=== PATIENT | female | born 1975 | race Caucasian/White ===

== ENCOUNTER 2016-12-06 18:30 | Inpatient (IN) | payer OTHER ==
[~2016-12-06] VITALS: Ht 162.6 cm; Wt 81.1 kg
[2016-12-06 21:26] VITALS: Ht 162.6 cm; Wt 81.1 kg
[2016-12-06 22:30] VITALS: BP 105/61; RESP 20
[2016-12-06] MEDS ORDERED: FUROSEMIDE 40 MG INJ IV ONE (23:00)
[2016-12-06] MEDS ORDERED: ALBUTEROL/IPRATROPIUM (NEB) 3 ML AMP HHN PRN (23:00)
[2016-12-06] MEDS ORDERED: ONDANSETRON 4 MG INJ IV PRN (23:00)
[2016-12-06] MEDS ORDERED: ACETAMINOPHEN 325 MG TAB PO PRN (23:00)
--- NOTE | 2016-12-06 23:27 | HP ---
Date/Time of Note Date/Time of Note DATE: 12/06/16 TIME: 23:14 Assessment/Plan VTE Prophylaxis VTE Prophylaxis Intervention: SCD's Lines/Catheters IV Catheter Type (from Rust): Saline Lock Assessment/Plan Chief Complaint/Hosp Course This is a 41 year old female being admitted to the [facility] floor for: #1 Large left pleural effusion: cxr: large left pleural effusion filing two thirst of the left thorax. DDx: Heart failure vs. underlying CA vs. other etiology. CT of the chest. U/s guided thoracentesis via IR with fluid analysis. Echo in the AM. Duonebs q4hrs. Will try lasix 40mg IV x 1 to see if it helps with diuresis. Supplemental 02. #2 Asthma: i do not believe she is in an exacerbation at this time. Will give duonebs q 4hrs to help with #1. 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 Unsure if there is reoccurence or spread that could be contributing to the #1. CT of the chest in the a.m. to further evaluate. will check CEA tumor marker. #4 Dvt and gi prophylaxis: SCDs, pepcid, will avoid lovenox at this time secondary to thoracentesis in the AM. Further treatment strategy will be implemented as per the clinical course. Problems: HPI/ROS Admit Date/Time Admit Date/Time Dec 06, 2016 at 20:27 Hx of Present Illness CC: sob x 1 month getting worse This is a 41 year old female with past medical history of asthma and Skin sarcoma who was transferred from [facility] for SOB x 1 month. She also reported left shoulder and pleuritic pain for 1 year duration. Upon my examination, she states that she has had had progressive worsening of her shortness of breath. She denies any fevers or chest pain, but does report pleuritic pain on respiration. She had an oxygen saturation of 96% on RA upon arrival to her room at [facility]. Denies any weight loss. allergies: nkda meds: see charli WARE Const: As per HPI Eyes : No pain discharge or redness or change in visual acuity ENT: No pain, sore throat, congestion, congestion, dysphagia or discharge Respiratory: As per HPI Cardiovascular: No chest pain, palpitation, PND, or edema GI : no change in appetite, abdominal pain, nausea, vomiting, diarrhea, constipation, or change in the color his stool Genitourinary: No dysuria, hematuria, flank pain , discharge or CVA tenderness Musculoskeletal: No joint pain, back pain, neck pain, restricted range of motion in neck or joints Skin: No rash, bruising or hives Neuro: No headache, dizziness, syncope, seizure, focal weakness Endocrine: No polyuria, polydipsia, temperature intolerance Psych: No hallucination, depression, anxiety or suicidal ideation PMH/Family/Social Past Medical History left forearm sarcoma, asthma, Past Surgical History left forearm sarcoma removal, cholecystectomy Family History Significant Family History: cancer (dad: unkown which kind) Social History Alcohol Use: occasionally Smoking Status: Current some day smoker (1 cigarette every other day. ) Drug Use: none Exam/Review of Systems Vital Signs Vitals Temperature: 98.6 bp:105/61 Heart rate 89 Respirations 18 O2 saturation: 98% on 2 L Exam Exam General: This is a 40 year female sitting in bed in no acute respiratory distress HEENT: Atraumatic, normocephalic. The pupils are equal, round and reactive. Extraocular motor are intact Neck: Supple with full range of motion. No rigidity or meningismus Chest: Nontender Lungs: Decreased breath sounds especially at the left lung field, cough on deep inspiration Heart: Normal S1-S2, Regular rhythm and rate. No overt murmurs appreciated Abdomen: Soft , nontender, nondistended , bowel sounds are present. No guarding no rebound tenderness , No masses or organomegaly. No costovertebral temporal angle mass Extremities: Normal to inspection, no edema no cyanosis Neurologic: Normal mental status, speech normal, cranial nerves II through XII are intact, motor and sensory are intact, no focal weakness Additional Comments Transferring facility pertinent lab results below, please see transfer documentation for full information. Chest x-ray:cxr: large left pleural effusion filing two thirst of the left thorax. CBC: Appears within normal values, BMP appears within normal values, Medications Medications Current Medications Influenza Virus Vaccine (Fluzone) 0.5 ml ONCE ONCE IM* ; Start 12/07/16 at 12:00 ; Stop 12/07/16 at 12:01 JERMAINE MEJIA Dec 06, 2016 23:27
[2016-12-07] MEDS: KETOROLAC 15 MG INJ IV PRN ×3 (00:56→16:43)
[2016-12-07 01:21] LABS: INR 1.17; PT RATIO 1.2
[2016-12-07 01:22] LABS: PARTIAL THROMBOPLASTIN TIME 37.2 Sec (25.0-35.0)
[2016-12-07 01:34] LABS: CHOL/HDL RATIO 9.5 RATIO
[2016-12-07 01:37] LABS: ALBUMIN/GLOBULIN RATIO 0.85; BILIRUBIN,INDIRECT 0.4 mg/dl (0-1.1); BILIRUBIN,TOTAL 0.4 mg/dl (0.2-1.3); CALCIUM 9.7 mg/dl (8.4-10.2); CREATININE 0.67 mg/dl (0.44-1.00); POTASSIUM 3.7 mmol/L (3.5-5.1); TOTAL PROTEIN 8.7 g/dl (6.1-8.1)
[2016-12-07] MEDS: ALBUTEROL/IPRATROPIUM (NEB) 3 ML AMP HHN SCH ×6 (01:55→20:43)
[2016-12-07 02:00] VITALS: BP 83/52
[2016-12-07 05:29] VITALS: BP 94/54
[2016-12-07 06:32] LABS: BASOPHIL # 0.1 10^3/ul (0.0-0.1); BASOPHILS % 0.8 % (0.0-2.0); EOSINOPHILS # 1.1 10^3/ul (0.0-0.5); EOSINOPHILS % 8.6 % (0.0-7.0); HEMATOCRIT 37.2 % (37.0-47.0); HEMOGLOBIN 12.1 g/dl (12.0-16.0); LYMPHOCYTES # 3.4 10^3/ul (0.8-2.9); LYMPHOCYTES % 26.1 % (15.0-51.0); MEAN CORPUSCULAR HEMOGLOBIN 27.6 pg (29.0-33.0); MEAN CORPUSCULAR HGB CONC 32.5 g/dl (32.0-37.0); MEAN CORPUSCULAR VOLUME 84.7 fl (82.0-101.0); MONOCYTE # 0.9 10^3/ul (0.3-0.9); MONOCYTES % 7.2 % (0.0-11.0); NEUTROPHIL # 7.4 10^3/ul (1.6-7.5); NEUTROPHILS % 56.9 % (39.0-77.0); PLATELET COUNT 433 10^3/UL (140-415); RED BLOOD COUNT 4.39 10^6/ul (4.20-5.40); WHITE BLOOD COUNT 12.9 10^3/ul (4.8-10.8)
[2016-12-07 06:55] LABS: CALCIUM 9.2 mg/dl (8.4-10.2); CREATININE 0.73 mg/dl (0.44-1.00); POTASSIUM 3.6 mmol/L (3.5-5.1)
[2016-12-07 08:00] VITALS: BP 96/54; RESP 17
[2016-12-07] MEDS ORDERED: ENOXAPARIN 40 MG/0.4 ML SYG SC SCH (09:00)
[2016-12-07] MEDS ORDERED: FAMOTIDINE 20 MG TAB PO SCH (09:00)
--- NOTE | 2016-12-07 10:38 | RADRPT ---
PROCEDURE: CT chest without contrast. CLINICAL INDICATION: Pleural effusion TECHNIQUE: CT scan of the chest without contrast was performed on a multi-slice CT scanner. The p atient was scanned without administration of intravenous contrast. Coronal and sagittal reformatted images were obtained from the axial source images. One or more of the following dose reduction techniques were used: - Automated exposure control. - Adjustment of the mA and/or kV according to patient size. Use of iterative reconstruction technique. DLP vol 354.6 mGy CTDI 9.4 mGy-cm COMPARISON: None. FINDINGS: There is opacification of nearly the entirety of the left hemithorax and this results in slight shif t of the mediastinum towards the right side. There is irregular heterogeneous soft tissue density se en encompassing the majority of the right hemithorax with a mild to moderate amount of loculated lay ering pleural fluid seen at the apex and at the right lung base with possible densities within the f luid. The left lung has an expanded and heterogeneous density and the presence of soft tissue masses within the left lung parenchyma suspected. This results in mass effect upon the mediastinum.The rig ht lung is clear and there is no right-sided effusion. There is a soft tissue density seen within the right lower thorax measuring 3.3 x 2.1 cm not fully c haracterize on series 3, image 8 which could represent soft tissue density adjacent to the esophagus . The heart and vascular structures of the thorax appear grossly unremarkable however fine detail is l imited. There are no enlarged axillary or mediastinal lymph nodes. There is no acute upper abdominal abnormality. Mild degenerate changes are seen within the thoracic spine and shoulders with no acute osseous abnormality. IMPRESSION: There is near-complete opacification of the thorax with a small amount of aerated left upper lung th at remains. The left hemithorax is mostly opacified by expanded heterogeneous left lung parenchyma w ith possible masses within the left lung and this is not fully assessed out IV contrast. There is mild to moderate layering in loculated left pleural fluid seen however there are irregular density seen within the area the pleural space which could represent soft tissue components or debri s. There is a possible mass within the right lower thorax adjacent to the esophagus and the posterior m ediastinum and this could represent esophageal lesion or the presence of an enlarged lymph node. A C T thorax with contrast is recommended to further evaluate. There is slight shift of the mediastinum towards the right secondary to opacification of the left he mithorax and mass effect upon the mediastinal structures. RPTAT: AA .Gauri Romero MD, MD Date Time Electronically viewed and signed by .Gauri Romero MD, MD on 12/07/2016 10:38 .J/
[2016-12-07] MEDS ORDERED: INFLUENZA VIRUS VACCINE 0.5 ML SYG IM* ONE (12:00)
[2016-12-07 14:00] VITALS: BP 106/59; RESP 19
[2016-12-07] MEDS ORDERED: LORAZEPAM 1 MG TAB PO ONE (14:30)
--- NOTE | 2016-12-07 15:33 | PN ---
Date/Time of Note Date/Time of Note DATE: 12/07/16 TIME: 15:27 Assessment/Plan VTE Prophylaxis VTE Prophylaxis Intervention: SCD's Lines/Catheters IV Catheter Type (from Nrs): Saline Lock Assessment/Plan Assessment/Plan 41 yo F with pmhx asthma, h/o L wrist sarcoma sp surgical resection admitted for SOB found to have L sided pleural effusion, etio unclear-->infectious v other PLAN thora today. will check protein and LDH to determine if transudative v exudative , also check cell count/diff, gram stain, culture, AFB culture, cytology serum tumor markers negative, TSH negative, hcg negative TTE ordered by injury/safety hazard assessment, result pending Subjective 24 Hr Interval Summary Free Text/Dictation Irish language line used to gather additional hx from pt. She's been having progressive SOB x 2 mos. No weight loss. +fevers/chills x 1 week. Regarding her sarcoma, it was a lesion in her L forearm which was surgically resected Exam/Review of Systems Vital Signs Vitals Vital Signs Date Time Temp Pulse Resp B/P Pulse Ox O2 Delivery O2 Flow Rate FiO2 12/07/16 13:00 92 20 95 Nasal Cannula 2.0 12/07/16 08:00 98.5 96/54 Intake and Output 12/06/16 12/06/16 12/07/16 15:00 23:00 07:00 Intake Total 300 ml Output Total 200 ml Balance 100 ml Exam nad no mrg dec breath sounds L lung abd soft no edema Results Result Diagram: 12/07/16 0541 12/07/16 0541 Results 24 hrs Laboratory Tests Test 12/07/16 00:41 12/07/16 00:46 12/07/16 05:41 12/07/16 12:06 Sodium Level 141 141 Potassium Level 3.7 3.6 Chloride Level 104 106 Carbon Dioxide Level 24 23 Anion Gap 17 H 16 Blood Urea Nitrogen 8 12 Creatinine 0.67 0.73 Glucose Level 112 153 Calcium Level 9.7 9.2 Total Bilirubin 0.4 Direct Bilirubin 0.00 Indirect Bilirubin 0.4 Aspartate Amino Transf (AST/SGOT) 20 Alanine Aminotransferase (ALT/SGPT) 14 Alkaline Phosphatase 110 Total Protein 8.7 H 8.8 H Albumin 4.0 Globulin 4.70 H Albumin/Globulin Ratio 0.85 Prothrombin Time 15.0 H Prothrombin Time Ratio 1.2 INR International Normalized Ratio 1.17 Activated Partial Thromboplast Time 37.2 H Hemoglobin A1c 5.6 Triglycerides Level 111 Cholesterol Level 296 H LDL Cholesterol, Calculated 243 HDL Cholesterol 31 L Cholesterol/HDL Ratio 9.5 Thyroid Stimulating Hormone (TSH) 2.070 White Blood Count 12.9 H Red Blood Count 4.39 Hemoglobin 12.1 Hematocrit 37.2 Mean Corpuscular Volume 84.7 Mean Corpuscular Hemoglobin 27.6 L Mean Corpuscular Hemoglobin Concent 32.5 Red Cell Distribution Width 14.0 Platelet Count 433 H Mean Platelet Volume 10.0 Neutrophils % 56.9 Lymphocytes % 26.1 Monocytes % 7.2 Eosinophils % 8.6 H Basophils % 0.8 Nucleated Red Blood Cells % 0.0 Neutrophils # 7.4 Lymphocytes # 3.4 H Monocytes # 0.9 Eosinophils # 1.1 H Basophils # 0.1 Nucleated Red Blood Cells # 0.0 B-Type Natriuretic Peptide 47 Carcinoembryonic Antigen 1.4 Serum HCG, Qualitative NEGATIVE Medications Medications Current Medications Ondansetron HCl (Zofran Inj) 4 mg Q6H PRN IV NAUSEA AND/OR VOMITING; Start 12/06/16 at 23:00 Acetaminophen (Tylenol Tab) 650 mg Q6H PRN PO PAIN LEVEL 1-3 OR FEVER; Start 12/06/16 at 23:00 Ketorolac Tromethamine (Toradol) 15 mg Q6H PRN IV PAIN Last administered on t 08:47; Admin Dose 15 MG; Start 12/07/16 at 00:00; Stop 12/07/16 at 23:59 MEHNAZ PEOPLES MD Dec 07, 2016 15:33
--- NOTE | 2016-12-07 16:04 | CONS ---
Date/Time of Note Date/Time of Note DATE: 12/07/16 TIME: 15:58 Assessment/Plan Assessment/Plan Additional Assessment/Plan IMP: 1. Large heterogenous lung mass with associated pleural effusion: main consideration would be recurrence of sarcoma to the thorax vs. less likely primary bronchogenic cancer 2. Left should pain--likely referred pain from left lung mass/effusion RECS: 1. Agree with diagnostic/therapeutic thoracentesis 2. Would pursue CT-guided lung mass biopsy 3. CT chest/abdomen/pelvis with IV contrast for full staging Consultation Date/Type/Reason Admit Date/Time Dec 06, 2016 at 20:27 Type of Consultation: Pulm Hx of Present Illness Briefly, this is a 41 year old [place] female with past medical history of asthma and sarcoma of the right forearm s/p resection who was transferred from [facility] for SOB x 1 month. She also reported left shoulder and pleuritic pain for 1 year duration. Constitutional: no complaints Eyes: no complaints ENT: no complaints Respiratory: pleuritic pain, shortness of breath Cardiovascular: no complaints Gastrointestinal: no complaints Genitourinary: no complaints Skin: no complaints Neurologic: no complaints Endocrine: no complaints Lymphatic: no complaints Psychological: no complaints Past Medical History asthma right arm sarcoma Past Surgical History resection of right arm sarcoma Family History Significant Family History: no pertinent family hx Social History Alcohol Use: occasionally Smoking Status: Current some day smoker (1 cigarette every other day. ) Drug Use: none Exam/Review of Systems Vital Signs Vitals Vital Signs Date Time Temp Pulse Resp B/P Pulse Ox O2 Delivery O2 Flow Rate FiO2 12/07/16 13:00 92 20 95 Nasal Cannula 2.0 12/07/16 08:00 98.5 96/54 Intake and Output 12/06/16 12/06/16 12/07/16 15:00 23:00 07:00 Intake Total 300 ml Output Total 200 ml Balance 100 ml Exam Constitutional: alert, oriented Psych: nl mood/affect, no complaints Head: atraumatic, normocephalic Eyes: EOMI, nl conjunctiva, nl lids, nl sclera ENMT: mucosa pink and moist, nl external ears & nose, nl lips & teeth, nl nasal mucosa & septum Neck: non-tender, supple Respiratory: other (Absent left breath sounds ) Cardiovascular: nl pulses, regular rate and rhythm Gastrointestinal: nl liver, spleen, non-tender, soft Extremities: normal pulses, other (right forearm scar) Neurological: TURN SEWER II-XII intact, nl mental status, nl speech, nl strength Results Result Diagram: 12/07/1654012/07/16540 Results 24 hrs Laboratory Tests Test 12/07/16 00:41 12/07/16 00:46 12/07/16 05:41 12/07/16 12:06 Sodium Level 141 141 Potassium Level 3.7 3.6 Chloride Level 104 106 Carbon Dioxide Level 24 23 Anion Gap 17 H 16 Blood Urea Nitrogen 8 12 Creatinine 0.67 0.73 Glucose Level 112 153 Calcium Level 9.7 9.2 Total Bilirubin 0.4 Direct Bilirubin 0.00 Indirect Bilirubin 0.4 Aspartate Amino Transf (AST/SGOT) 20 Alanine Aminotransferase (ALT/SGPT) 14 Alkaline Phosphatase 110 Total Protein 8.7 H 8.8 H Albumin 4.0 Globulin 4.70 H Albumin/Globulin Ratio 0.85 Prothrombin Time 15.0 H Prothrombin Time Ratio 1.2 INR International Normalized Ratio 1.17 Activated Partial Thromboplast Time 37.2 H Hemoglobin A1c 5.6 Triglycerides Level 111 Cholesterol Level 296 H LDL Cholesterol, Calculated 243 HDL Cholesterol 31 L Cholesterol/HDL Ratio 9.5 Thyroid Stimulating Hormone (TSH) 2.070 White Blood Count 12.9 H Red Blood Count 4.39 Hemoglobin 12.1 Hematocrit 37.2 Mean Corpuscular Volume 84.7 Mean Corpuscular Hemoglobin 27.6 L Mean Corpuscular Hemoglobin Concent 32.5 Red Cell Distribution Width 14.0 Platelet Count 433 H Mean Platelet Volume 10.0 Neutrophils % 56.9 Lymphocytes % 26.1 Monocytes % 7.2 Eosinophils % 8.6 H Basophils % 0.8 Nucleated Red Blood Cells % 0.0 Neutrophils # 7.4 Lymphocytes # 3.4 H Monocytes # 0.9 Eosinophils # 1.1 H Basophils # 0.1 Nucleated Red Blood Cells # 0.0 B-Type Natriuretic Peptide 47 Carcinoembryonic Antigen 1.4 Serum HCG, Qualitative NEGATIVE Medications Medications Current Medications Ondansetron HCl (Zofran Inj) 4 mg Q6H PRN IV NAUSEA AND/OR VOMITING; Start 12/06/16 at 23:00 Acetaminophen (Tylenol Tab) 650 mg Q6H PRN PO PAIN LEVEL 1-3 OR FEVER; Start 12/06/16 at 23:00 Ketorolac Tromethamine (Toradol) 15 mg Q6H PRN IV PAIN Last administered on 08:47; Admin Dose 15 MG; Start 12/07/16 at 00:00; Stop 12/07/16 at 23:59 MARQUES BELTRAN MD Dec 07, 2016 16:04
[2016-12-07] MEDS ORDERED: LORAZEPAM 1 MG TAB PO SCH (19:00)
[2016-12-07 20:00] VITALS: BP 100/59; RESP 18
[2016-12-07] MEDS ORDERED: SOD CHLORIDE 0.9% 100 ML ONE (22:46)
[2016-12-07] MEDS ORDERED: IOHEXOL 300MG/ML 150 ML BTL ONE (22:46)
[2016-12-08] MEDS ORDERED: LORAZEPAM 2 MG INJ IV ONE (01:00)
[2016-12-08 02:00] VITALS: BP 122/63; RESP 20
[2016-12-08] MEDS: ALBUTEROL/IPRATROPIUM (NEB) 3 ML AMP HHN SCH ×6 (02:05→21:03)
[2016-12-08 08:00] VITALS: BP 109/69; RESP 21
--- NOTE | 2016-12-08 11:35 | RADRPT ---
PROCEDURE: XR Chest. CLINICAL INDICATION: Post thoracentesis TECHNIQUE: Anterior chest x-ray. COMPARISON: CT dated 12/07/2016 FINDINGS: There is interval decrease in left pleural effusion. A small left pleural effusion remains. Dense consolidation in the left lung base is still present, likely from previously described left lo wer lobe lung mass. There is no evidence of pneumothorax. The cardiomediastinal silhouette is unremarkable. The soft tissues are normal. Osseous structures are unremarkable. IMPRESSION: 1. Interval decrease in left pleural effusion. 2. No evidence pneumothorax. 3. Dense consolidation left lung base, likely from previously described left lower lobe lung mass. RPTAT: QQ .Juan Theodore MD, Date Time Electronically viewed and signed by .Juan Theodore MD, on 12/08/2016 11:35 .M/
[2016-12-08] MEDS ORDERED: LIDOCAINE 1% (MPF) 5 ML VIAL ONE (11:40)
[2016-12-08] MEDS: KETOROLAC 15 MG INJ IV PRN ×2 (11:59→23:17)
--- NOTE | 2016-12-08 12:03 | RADRPT ---
Echocardiogram Report Patient Name: CLARISSA PÉREZ Gender: Female Date: 1975 Study Date: 07-Dec-2016 Occupational Therapist: Kathleen RUST Location: 2265 Ref. Physician: ROSA ELENA LOPEZ Quality: Technically Difficult Study Procedures: Transthoracic echocardiogram with complete 2D, M-Mode, and doppler examination. Indications: Large left pleural effusion. 2D/M Mode Doppler Measurement Value Normal Ranges Measurement Value Normal Ranges LVIDd 2D 4.6 3.5 - 5.6 cm AV Peak Chong 1.5 m/sec LVIDs 2D 2.9 2.1 - 4.1 cm AV Peak PG 9.0 mmHg FS 2D 37.3 % LVOT Peak Chong 1.2 m/sec LVPWd 2D 1.0 0.6 - 1.1 cm LVOT Peak PG 6.0 mmHg IVSd 2D 1.1 0.6 - 1.1 cm MV E Peak Chong 1.1 m/sec IVS/LVPW 2D 1.1 MV A Peak Chong 0.8 m/sec AoR Diam 2D 2.4 2.0 - 3.7 cm MV E/A 1.5 LA/Ao 2D 1 0 - 1 MV Decel Time 130 msec EDV 2D 96.7 cm3 MV E/A 1.5 ESV 2D 23.9 cm3 LA Dimen 2D 3.1 2.3 - 4.0 cm Findings Left Ventricle: Hyperdynamic left ventricular systolic function. Normal left ventricular cavity size. Ejection fraction is visually estimated at 70 %. Right Ventricle: Normal right ventricular size. Normal right ventricular systolic function. Left Atrium: The left atrium is normal in size. Right Atrium: The right atrium is normal in size. Mitral Valve: Normal appearance and function of the mitral valve with trace physiologic regurgitation. Aortic Valve: No significant aortic stenosis or insufficiency. Aortic valve not well visualized. Tricuspid Valve: Normal appearance of the tricuspid valve. Unable to obtain RVSP due to minimal presence of tricuspid regurgitation. There is trace tricuspid regurgitation. Pulmonic Valve: Pulmonic valve not well visualized. There is trace pulmonic regurgitation. Pericardium: Normal pericardium with no significant pericardial effusion. The heart is displaced medially and posteriorely by what appears to be lung parenchyma and fluid collection. Upon checking [employer], it appears that the patient has mediastinal shift from a possible lung mass and pleural effusion based on CT. Aorta: Normal aortic root. IVC: Normal size and normal respiratory collapse consistent with normal right atrial pressure. Conclusions 1.Normal pericardium with no significant pericardial effusion. The heart is displaced medially and posteriorly by what appears to be lung parenchyma and fluid collection. Upon checking [employer], it appears that the patient has mediastinal shift from a possible lung mass and pleural effusion based on CT. 2.Hyperdynamic left ventricular systolic function. Normal left ventricular cavity size. Ejection fraction is visually estimated at 70 %. 3.No significant valvular stenosis or regurgitation seen. 4.Unable to obtain RVSP due to minimal presence of tricuspid regurgitation. RA pressure estimated to be 3 mmHg. Electronically Signed By: Price Franco 08-Dec-2016 12:02:52 -0700 Patient Name: CLARISSA PÉREZ Study Date: 07-Dec-2016 [id number]
--- NOTE | 2016-12-08 12:14 | RADRPT ---
PROCEDURE: CT Chest, Abdomen, and Pelvis with contrast. CLINICAL INDICATION: Left lower lobe lung mass. Staging exam for subsequent therapy. TECHNIQUE: CT scan of the chest, abdomen and pelvis with contrast was performed on a multidetector high-resolution CT scanner. The patient was scanned following the uncomplicated intravenous adminis tration of 100 cc of Omnipaque 300. Coronal and sagittal reformatted images were obtained from the axial source images. Images were reviewed on a high-resolution PACS workstation. One or more of the following dose reduction techniques were used: Automated exposure control, adjustment of the mA and/ or kV according to patient size and use of iterative reconstruction technique. The total exam CTDI equals 12.6 mGy and the total exam DLP equals 900 mGy-cm. COMPARISON: Noncontrast CT dated 12/07/2016 at 0114 hours.. FINDINGS: ONCOLOGIC FINDINGS Measurable disease (as per RECIST 1.1) with target lesions as follows: 1. Heterogeneously enhancing hypervascular mass in the left lung base, measuring 16.7 x 11.3 x 12.0 cm, likely extrinsic to lung and superiorly displacing the left lower lobe with internal low densit y suggesting central necrosis. 2. Heterogeneously enhancing hypervascular mass in the azygo-esophageal recess of the right lower l analy zone, abutting the esophagus, measuring 3.7 x 2.4 x 2.1 cm. Nonmeasurable disease: 1. Moderate left pleural effusion, likely malignant. New Lesions: None Additional comments: None NON-ONCOLOGIC FINDINGS No focal consolidation or pleural effusions. No mediastinal, hilar, or axillary lymphadenopathy. Normal size mediastinal and pericardial lymph nodes are noted, measuring up to 6 mm in short axis. Heart size is normal without pericardial effusion. Liver demonstrates homogeneous enhancement without a focal lesion. The gallbladder is surgically absent.. No intra- or extra-hepatic biliary dilatation. Spleen, adrenal glands, and pancreas are unremarkable. Renal enhancement is symmetric without hydronephrosis. 5 mm low density focus in the interpolar region of right kidney is too small to characterize by CT c riteria but statistically likely represents a cyst. Bowel is normal in caliber without mural thickening. IUD is seen within the endometrial canal of the uterus. 2 cm of fat containing ovoid focus in the right adnexa, suggesting dermoid. No suspicious bone lesions. IMPRESSION: 1. Nearly 17 cm heterogeneously enhancing mass with central necrosis in the left lung base which oc cupies the entire left lower thoracic cavity and causes mild displacement of mediastinal structures to the right side. The mass displaces normal lung parenchyma superiorly, suggesting a mass is extrin sic to the left lower lobe. The findings suggest malignancy. Differential diagnosis includes metasta sis and primary lung neoplasm. Correlation with cytology from thoracentesis performed earlier the day is suggested for diagnosis. 2. 3.7 cm heterogeneously enhancing mass in the azygo-esophageal recess of right lower lobe, abutti ng the esophagus. Differential diagnosis includes metastasis, lung neoplasm and esophageal neoplasm, favoring metastasis. 3. Moderate size left pleural effusion, likely malignant. Correlation with cytology from thoracente sis performed earlier the same day is suggested. 4. 2 cm fat containing nodule in the right adnexa, suggesting dermoid. 5. Satisfactory position of IUD. 6. Previous cholecystectomy. RPTAT: QQ .Juan Theodore MD, MD Date Time Electronically viewed and signed by .Juan Theodore MD, on 12/08/2016 12:14 .M/
--- NOTE | 2016-12-08 12:15 | RADRPT ---
PROCEDURE: Ultrasound guided thoracentesis CLINICAL INDICATION: Pleural effusion TECHNIQUE: Multiple sonographic images were obtained through the patient's chest. A site in the arnulfo julian's left lower chest was selected and marked ink pen. The area was prepped and draped in the [facility] sterile fashion. The skin and subcutaneous tissues were anesthetized with 15 cc of 1% lidocaine . A a 6-Georgian 10 cm long thoracentesis needle was advanced into the pleural space and the introduce r was connected to a vacuum drainage system. A total of 1200 cc of serosanguineous fluid was draine d. The patient tolerated the procedure well. The specimen was sent for laboratory evaluation. COMPARISON: CT performed 12/07/2016 FINDINGS: Anechoic fluid visualized in the chest cavity on ultrasound. IMPRESSION: 1. Successful ultrasound-guided thoracentesis without immediate complication. RPTAT: QQ .Juan Theodore MD, Date Time Electronically viewed and signed by .Juan Theodore MD, MD on 12/08/2016 12:15 .M/
[2016-12-08 14:00] VITALS: BP 103/58; RESP 21
[2016-12-08 14:09] LABS: FLD MN% 92.1 %; FLD PMN% 7.9 %; FLD RBC 77 /uL; FLD WBC 6694 /cmm
[2016-12-08 14:35] LABS: FLD TYPE THORACENTHESIS
[2016-12-08 14:36] LABS: FLD CLARITY CLOUDY; FLD COLOR AMBER
--- NOTE | 2016-12-08 14:51 | PN ---
Date/Time of Note Date/Time of Note DATE: 12/08/16 TIME: 14:50 Assessment/Plan VTE Prophylaxis VTE Prophylaxis Intervention: SCD's Lines/Catheters IV Catheter Type (from Nrsg): Saline Lock Assessment/Plan Assessment/Plan 41 yo F with pmhx asthma, h/o wrist sarcoma sp surgical resection admitted for SOB found to have L lung mass and effusion. suspect malignant origin. PLAN thora done 10.8. cytology pending pulm following. will likely need tissue sampling. Subjective 24 Hr Interval Summary Free Text/Dictation [place] at [place] at time of my attempted eval Exam/Review of Systems Vital Signs Vitals Vital Signs Date Time Temp Pulse Resp B/P Pulse Ox O2 Delivery O2 Flow Rate FiO2 12/08/16 12:18 87 18 95 Nasal Cannula 2.0 12/08/16 08:00 98.0 109/69 Intake and Output 12/07/16 12/07/16 12/08/16 15:00 23:00 07:00 Intake Total 350 ml 220 ml Balance 350 ml 220 ml Exam pt not in room at time of my attempted eval prelim fluid results reviewed Results Result Diagram: 12/07/16 0541 12/07/16 0541 Results 24 hrs Laboratory Tests Test 12/08/16 10:40 Body Fluid Type THORACENTHESIS Body Fluid Volume 1000.0 Body Fluid Color JIM Body Fluid Appearance CLOUDY Body Fluid WBC 6694 Body Fluid RBC (Auto) 77 Body Fluid Polynuclear WBCs (%) 7.9 Body Fluid Mononuclear Cells % Auto 92.1 Medications Medications Current Medications Ondansetron HCl (Zofran Inj) 4 mg Q6H PRN IV NAUSEA AND/OR VOMITING; Start 12/06/16 at 23:00 Acetaminophen (Tylenol Tab) 650 mg Q6H PRN PO PAIN LEVEL 1-3 OR FEVER; Start 12/06/16 at 23:00 Ketorolac Tromethamine (Toradol) 15 mg Q6H PRN IV PAIN Last administered on t 11:59; Admin Dose 15 MG; Start 12/08/16 at 01:00; Stop 12/11/16 at 00:59 MEHNAZ PEOPLES MD Dec 08, 2016 14:51
[2016-12-08 14:52] LABS: FLUID TYPE PLEURAL FLUID
[2016-12-08 14:53] LABS: FLUID TYPE PLEURAL FLUID
[2016-12-08 14:54] LABS: FLUID GLUCOSE 87 mg/dl; FLUID TOTAL PROTEIN 5.6 g/dl
--- NOTE | 2016-12-08 16:00 | CONS ---
Date/Time of Note Date/Time of Note DATE: 12/08/16 TIME: 15:57 Consult Date/Type/Reason Admit Date/Time Dec 06, 2016 at 20:27 Initial Consult Date Type of Consultation: Pulm Subjective s/p left thoracentesis x 1.2 L Objective Vital Signs Date Time Temp Pulse Resp B/P Pulse Ox O2 Delivery O2 Flow Rate FiO2 12/08/16 12:18 87 18 95 Nasal Cannula 2.0 12/08/16 08:00 98.0 109/69 Intake and Output 12/07/16 12/07/16 12/08/16 15:00 23:00 07:00 Intake Total 350 ml 220 ml Balance 350 ml 220 ml Exam HEENT: Neck supple; no JVD; no LAD CVS: RRR, S1 and S2 CHEST: BS left side ABD: Soft, NT, + BS EXT: No c/c/e Results/Medications Result Diagram: 12/07/16 0541 12/07/16 0541 Results 24 hrs Laboratory Tests Test 12/08/16 10:40 Body Fluid Type PLEURAL FLUID Body Fluid Volume 1000.0 Body Fluid Color JIM Body Fluid Appearance CLOUDY Body Fluid WBC 6694 Body Fluid RBC (Auto) 77 Body Fluid Polynuclear WBCs (%) 7.9 Body Fluid Mononuclear Cells % Auto 92.1 Body Fluid Glucose 87 Body Fluid Total Protein 5.6 Body Fluid Lactate Dehydrogenase Medications Current Medications Ondansetron HCl (Zofran Inj) 4 mg Q6H PRN IV NAUSEA AND/OR VOMITING; Start 12/06/16 at 23:00 Acetaminophen (Tylenol Tab) 650 mg Q6H PRN PO PAIN LEVEL 1-3 OR FEVER; Start 12/06/16 at 23:00 Ketorolac Tromethamine (Toradol) 15 mg Q6H PRN IV PAIN Last administered on t 11:59; Admin Dose 15 MG; Start 12/08/16 at 01:00; Stop 12/11/16 at 00:59 Morphine Sulfate (morphine) 2 mg Q4H PRN IV pain; Start 12/08/16 at 15:30 Assessment/Plan Chief Complaint/Hosp Course Briefly, this is a 41 year old [place]ian female with past medical history of asthma and 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 She also reported left shoulder and pleuritic pain for 1 year duration. Problems: Additional Assessment/Plan IMP: 1. Large Left heterogenous lung mass with right paraesophageal mass and associated pleural effusion 2. Left should pain--likely referred pain from left lung mass/effusion 3. Lymphocytic predominant exudative effusion--likely malignant RECS: 1. Follow-up pleural fluid cytology 2. Would pursue CT-guided lung mass biopsy MARQUES BELTRAN MD Dec 08, 2016 16:00
[2016-12-08 20:00] VITALS: BP 104/68; RESP 19
[2016-12-09] MEDS: ALBUTEROL/IPRATROPIUM (NEB) 3 ML AMP HHN SCH ×6 (01:00→21:26)
[2016-12-09 02:00] VITALS: BP 81/53; RESP 20
[2016-12-09 04:08] VITALS: BP 97/61
[2016-12-09 06:40] LABS: BASOPHIL # 0.1 10^3/ul (0.0-0.1); BASOPHILS % 0.7 % (0.0-2.0); EOSINOPHILS # 1.2 10^3/ul (0.0-0.5); EOSINOPHILS % 10.8 % (0.0-7.0); HEMATOCRIT 35.8 % (37.0-47.0); HEMOGLOBIN 11.7 g/dl (12.0-16.0); LYMPHOCYTES # 2.4 10^3/ul (0.8-2.9); LYMPHOCYTES % 21.6 % (15.0-51.0); MEAN CORPUSCULAR HEMOGLOBIN 27.7 pg (29.0-33.0); MEAN CORPUSCULAR HGB CONC 32.7 g/dl (32.0-37.0); MEAN CORPUSCULAR VOLUME 84.8 fl (82.0-101.0); MONOCYTE # 0.9 10^3/ul (0.3-0.9); MONOCYTES % 8.2 % (0.0-11.0); NEUTROPHIL # 6.4 10^3/ul (1.6-7.5); NEUTROPHILS % 58.3 % (39.0-77.0); PLATELET COUNT 423 10^3/UL (140-415); RED BLOOD COUNT 4.22 10^6/ul (4.20-5.40); RED CELL DISTRIBUTION WIDTH 14.1 % (11.5-14.5)
[2016-12-09 07:05] LABS: ALBUMIN 3.4 g/dl (3.3-4.9); ALBUMIN/GLOBULIN RATIO 0.85; BILIRUBIN,INDIRECT 0.2 mg/dl (0-1.1); BILIRUBIN,TOTAL 0.2 mg/dl (0.2-1.3); CREATININE 0.65 mg/dl (0.44-1.00); MAGNESIUM 2.1 mg/dl (1.7-2.5); POTASSIUM 4.3 mmol/L (3.5-5.1); TOTAL PROTEIN 7.4 g/dl (6.1-8.1)
[2016-12-09 07:36] VITALS: BP 109/65; RESP 21
[2016-12-09] MEDS: KETOROLAC 15 MG INJ IV PRN ×3 (09:33→22:42)
[2016-12-09] MEDS: NACL 0.9% 3 ML SYG IV SCH ×2 (09:36→16:41)
--- NOTE | 2016-12-09 13:00 | CONS ---
Date/Time of Note Date/Time of Note DATE: 12/09/16 TIME: 12:57 Assessment/Plan Assessment/Plan Additional Assessment/Plan Assessment and recommendations; 1. Patient admitted with shortness of breath due to large left pleural effusion with a large left lung mass. 2. History of left arm sarcoma. Status post resection. Await pleural fluid cytology. If the cytology is negative patient will need to have CT guided biopsy of the lung mass. CT findings are highly worrisome for a malignant process. Consultation Date/Type/Reason Admit Date/Time Dec 06, 2016 at 20:27 Initial Consult Date Type of Consultation: Pulm 24 HR Interval Summary Free Text/Dictation Patient's condition is stable. Reports decreased shortness of breath. Denies any coughing or wheezing. Any hemoptysis. General exam; young female, awake alert. Currently in no distress. Exam/Review of Systems Vital Signs Vitals Vital Signs Date Time Temp Pulse Resp B/P Pulse Ox O2 Delivery O2 Flow Rate FiO2 12/09/16 10:58 2.0 12/09/16 10:58 93 18 99 Nasal Cannula 12/09/16 08:29 21 12/09/16 07:36 98.5 109/65 Intake and Output 12/08/16 12/08/16 12/09/16 15:00 23:00 07:00 Intake Total 375 ml 350 ml Output Total 1200 ml Balance -825 ml 350 ml Exam HEENT exam; supple neck, no JVD. No lymphadenopathy. Midline trachea. No thyromegaly. Pharynx is clear. Patient has fair dentition. Chest exam; diminished breath sounds left lower lobe. Right lung is clear to auscultation. S1-S2 audible, no murmurs. Regular rhythm. Abdomen exam; soft, no organomegaly. Bowel sounds audible. Nontender. Nondistended. Extremity exam; no peripheral edema. WAITER/WAITRESS ECONOMY CLASS exam; no focal deficit. Results Result Diagram: 12/09/16 0553 12/09/16 0553 Results 24 hrs Laboratory Tests Test 12/09/16 05:53 White Blood Count 11.0 H Red Blood Count 4.22 Hemoglobin 11.7 L Hematocrit 35.8 L Mean Corpuscular Volume 84.8 Mean Corpuscular Hemoglobin 27.7 L Mean Corpuscular Hemoglobin Concent 32.7 Red Cell Distribution Width 14.1 Platelet Count 423 H Mean Platelet Volume 10.0 Neutrophils % 58.3 Lymphocytes % 21.6 Monocytes % 8.2 Eosinophils % 10.8 H Basophils % 0.7 Nucleated Red Blood Cells % 0.0 Neutrophils # 6.4 Lymphocytes # 2.4 Monocytes # 0.9 Eosinophils # 1.2 H Basophils # 0.1 Nucleated Red Blood Cells # 0.0 Sodium Level 137 Potassium Level 4.3 Chloride Level 104 Carbon Dioxide Level 27 Anion Gap 10 Blood Urea Nitrogen 17 Creatinine 0.65 Glucose Level 113 Calcium Level 9.0 Magnesium Level 2.1 Total Bilirubin 0.2 Direct Bilirubin 0.00 Indirect Bilirubin 0.2 Aspartate Amino Transf (AST/SGOT) 14 L Alanine Aminotransferase (ALT/SGPT) 18 Alkaline Phosphatase 81 Total Protein 7.4 Albumin 3.4 Globulin 4.00 H Albumin/Globulin Ratio 0.85 Medications Medications Current Medications Ondansetron HCl (Zofran Inj) 4 mg Q6H PRN IV NAUSEA AND/OR VOMITING; Start 12/06/16 at 23:00 Acetaminophen (Tylenol Tab) 650 mg Q6H PRN PO PAIN LEVEL 1-3 OR FEVER Last administered on 12/08/16 20:10; Admin Dose 650 MG; Start 12/06/16 at 23:00 Ketorolac Tromethamine (Toradol) 15 mg Q6H PRN IV PAIN Last administered on 09:33; Admin Dose 15 MG; Start 12/08/16 at 01:00; Stop 12/11/16 at 00:59 Morphine Sulfate (morphine) 2 mg Q4H PRN IV pain; Start 12/08/16 at 15:30 AMELIE STAUFFER Dec 09, 2016 13:00
[2016-12-09 14:36] VITALS: BP 105/58
--- NOTE | 2016-12-09 15:49 | PN ---
Date/Time of Note Date/Time of Note DATE: 12/09/16 TIME: 15:49 Assessment/Plan VTE Prophylaxis VTE Prophylaxis Intervention: SCD's Lines/Catheters IV C[facility]ter Type (from [facility]): Saline Lock Assessment/Plan Chief Complaint/Hosp Course Assessment/Plan: 41 yo F with pmhx asthma, h/o wrist sarcoma sp surgical resection admitted for SOB found to have L lung mass and effusion. suspect malignant origin. PLAN thora done 10.8. cytology [id number] results. pulm following. will likely need tissue sampling -for likely ultrasound-guided biopsy in 24 hours. Problems: Subjective 24 Hr Interval Summary Free Text/Dictation Patient complaining of dry cough. Had thoracentesis yesterday. Awaiting ultrasound-guided biopsy for lung mass tomorrow. Exam/Review of Systems Vital Signs Vitals Vital Signs Date Time Temp Pulse Resp B/P Pulse Ox O2 Delivery O2 Flow Rate FiO2 12/09/16 14:36 97.5 95 105/58 97 12/09/16 10:58 2.0 12/09/16 10:58 18 Nasal Cannula 12/09/16 08:29 21 Intake and Output 12/08/16 12/08/16 12/09/16 14:59 22:59 06:59 Intake Total 375 ml 350 ml Output Total 1200 ml Balance -825 ml 350 ml Exam nad no mrg dec breath sounds L lung abd soft no edema Results Result Diagram: 12/09/16 0553 12/09/16 0553 Results 24 hrs Laboratory Tests Test 12/09/16 05:53 White Blood Count 11.0 H Red Blood Count 4.22 Hemoglobin 11.7 L Hematocrit 35.8 L Mean Corpuscular Volume 84.8 Mean Corpuscular Hemoglobin 27.7 L Mean Corpuscular Hemoglobin Concent 32.7 Red Cell Distribution Width 14.1 Platelet Count 423 H Mean Platelet Volume 10.0 Neutrophils % 58.3 Lymphocytes % 21.6 Monocytes % 8.2 Eosinophils % 10.8 H Basophils % 0.7 Nucleated Red Blood Cells % 0.0 Neutrophils # 6.4 Lymphocytes # 2.4 Monocytes # 0.9 Eosinophils # 1.2 H Basophils # 0.1 Nucleated Red Blood Cells # 0.0 Sodium Level 137 Potassium Level 4.3 Chloride Level 104 Carbon Dioxide Level 27 Anion Gap 10 Blood Urea Nitrogen 17 Creatinine 0.65 Glucose Level 113 Calcium Level 9.0 Magnesium Level 2.1 Total Bilirubin 0.2 Direct Bilirubin 0.00 Indirect Bilirubin 0.2 Aspartate Amino Transf (AST/SGOT) 14 L Alanine Aminotransferase (ALT/SGPT) 18 Alkaline Phosphatase 81 Total Protein 7.4 Albumin 3.4 Globulin 4.00 H Albumin/Globulin Ratio 0.85 Medications Medications Current Medications Ondansetron HCl (Zofran Inj) 4 mg Q6H PRN IV NAUSEA AND/OR VOMITING; Start 12/06/16 at 23:00 Acetaminophen (Tylenol Tab) 650 mg Q6H PRN PO PAIN LEVEL 1-3 OR FEVER Last administered on 12/08/16 20:10; Admin Dose 650 MG; Start 12/06/16 at 23:00 Ketorolac Tromethamine (Toradol) 15 mg Q6H PRN IV PAIN Last administered on 09:33; Admin Dose 15 MG; Start 12/08/16 at 01:00; Stop 12/11/16 at 00:59 Morphine Sulfate (morphine) 2 mg Q4H PRN IV pain; Start 12/08/16 at 15:30 NITESH LITTLE Dec 09, 2016 15:49
[2016-12-09] MEDS ORDERED: CEPASTAT LOZENGE MT PRN (16:30)
[2016-12-09] MEDS: GUAIFENESIN 20 MG/ML 5ML CUP PO PRN (16:41)
[2016-12-09 20:51] VITALS: BP 108/51; RESP 20
[2016-12-10] VITALS (11 sets, daily range): BP systolic 87–112; BP diastolic 51–61; PULSE 85–92; RESP 18–27
[2016-12-10] MEDS: ALBUTEROL/IPRATROPIUM (NEB) 3 ML AMP HHN SCH ×6 (01:05→20:46)
[2016-12-10 06:31] LABS: BASOPHIL # 0.1 10^3/ul (0.0-0.1); BASOPHILS % 0.8 % (0.0-2.0); EOSINOPHILS % 9.1 % (0.0-7.0); HEMATOCRIT 35.5 % (37.0-47.0); HEMOGLOBIN 11.7 g/dl (12.0-16.0); LYMPHOCYTES # 2.6 10^3/ul (0.8-2.9); LYMPHOCYTES % 23.8 % (15.0-51.0); MEAN CORPUSCULAR HEMOGLOBIN 28.5 pg (29.0-33.0); MEAN CORPUSCULAR VOLUME 86.4 fl (82.0-101.0); MONOCYTE # 0.8 10^3/ul (0.3-0.9); NEUTROPHIL # 6.5 10^3/ul (1.6-7.5); PLATELET COUNT 429 10^3/UL (140-415); RED BLOOD COUNT 4.11 10^6/ul (4.20-5.40); RED CELL DISTRIBUTION WIDTH 13.9 % (11.5-14.5)
[2016-12-10 06:53] LABS: ALBUMIN 3.5 g/dl (3.3-4.9); ALBUMIN/GLOBULIN RATIO 0.89; BILIRUBIN,INDIRECT 0.1 mg/dl (0-1.1); BILIRUBIN,TOTAL 0.1 mg/dl (0.2-1.3); CALCIUM 9.1 mg/dl (8.4-10.2); CREATININE 0.64 mg/dl (0.44-1.00); MAGNESIUM 2.1 mg/dl (1.7-2.5); POTASSIUM 4.5 mmol/L (3.5-5.1); TOTAL PROTEIN 7.4 g/dl (6.1-8.1)
--- NOTE | 2016-12-10 11:57 | CONS ---
Date/Time of Note Date/Time of Note DATE: 12/10/16 TIME: 11:54 Assessment/Plan Assessment/Plan Additional Assessment/Plan Assessment and recommendations; 1. Patient admitted with shortness of breath due to large left pleural effusion status post thoracentesis. Awaiting cytology. 2. History of right arm sarcoma several years ago. Continue current treatment. If the pleural fluid cytology findings are nonconclusive, patient will need to have a CT-guided biopsy of the lung mass. Consultation Date/Type/Reason Admit Date/Time Dec 06, 2016 at 20:27 Type of Consultation: Pulm 24 HR Interval Summary Free Text/Dictation Patient's condition is stable. Denies any shortness of breath. General exam; young female, awake alert, currently in no distress. Exam/Review of Systems Vital Signs Vitals Vital Signs Date Time Temp Pulse Resp B/P Pulse Ox O2 Delivery O2 Flow Rate FiO2 12/10/16 08:00 98.8 76 18 101/57 96 12/10/16 04:11 21 12/09/16 20:00 Nasal Cannula 2.0 Intake and Output 12/09/16 12/09/16 12/10/16 14:59 22:59 06:59 Intake Total 1080 ml 400 ml Balance 1080 ml 400 ml Exam HEENT exam; supple neck, no JVD. No lymphadenopathy. Midline trachea. No thyromegaly. Pharynx is clear. Patient has fair dentition. Chest exam; diminished breath sounds left lower lobe. Rest of the lung soria are clear. S1-S2 audible, no murmurs. Regular rhythm. Abdomen exam; soft, nontender. No organomegaly. Bowel sounds audible. Extremity exam; no peripheral edema. CRIMINOLOGY PROFESSOR exam; no focal deficit. Results Result Diagram: 12/10/1630 12/10/16529 Results 24 hrs Laboratory Tests Test 12/10/16 05:30 White Blood Count 11.0 H Red Blood Count 4.11 L Hemoglobin 11.7 L Hematocrit 35.5 L Mean Corpuscular Volume 86.4 Mean Corpuscular Hemoglobin 28.5 L Mean Corpuscular Hemoglobin Concent 33.0 Red Cell Distribution Width 13.9 Platelet Count 429 H Mean Platelet Volume 10.0 Neutrophils % 59.0 Lymphocytes % 23.8 Monocytes % 7.0 Eosinophils % 9.1 H Basophils % 0.8 Nucleated Red Blood Cells % 0.0 Neutrophils # 6.5 Lymphocytes # 2.6 Monocytes # 0.8 Eosinophils # 1.0 H Basophils # 0.1 Nucleated Red Blood Cells # 0.0 Sodium Level 139 Potassium Level 4.5 Chloride Level 105 Carbon Dioxide Level 26 Anion Gap 13 Blood Urea Nitrogen 15 Creatinine 0.64 Glucose Level 103 Calcium Level 9.1 Magnesium Level 2.1 Total Bilirubin 0.1 L Direct Bilirubin 0.00 Indirect Bilirubin 0.1 Aspartate Amino Transf (AST/SGOT) 14 L Alanine Aminotransferase (ALT/SGPT) 19 Alkaline Phosphatase 78 Total Protein 7.4 Albumin 3.5 Globulin 3.90 H Albumin/Globulin Ratio 0.89 Medications Medications Current Medications Ondansetron HCl (Zofran Inj) 4 mg Q6H PRN IV NAUSEA AND/OR VOMITING; Start 12/06/16 at 23:00 Acetaminophen (Tylenol Tab) 650 mg Q6H PRN PO PAIN LEVEL 1-3 OR FEVER Last administered on 12/08/16 20:10; Admin Dose 650 MG; Start 12/06/16 at 23:00 Ketorolac Tromethamine (Toradol) 15 mg Q6H PRN IV PAIN Last administered on 22:42; Admin Dose 15 MG; Start 12/08/16 at 01:00; Stop 12/11/16 at 00:59 Morphine Sulfate (morphine) 2 mg Q4H PRN IV pain; Start 12/08/16 at 15:30 Guaifenesin (Robitussin Liquid Cup) 200 mg Q4H PRN PO COUGH Last administered on 12/09/16 16:41; Admin Dose 200 MG; Start 12/09/16 at 16:30 Phenol (Cepastat Lozenge) 1 lozenge Q1H PRN MT COUGH; Start 12/09/16 at 16:30 AMELIE STAUFFER Dec 10, 2016 11:57
[2016-12-10] MEDS ORDERED: LIDOCAINE 1% (MDV) 20 ML INJ ONE (14:31)
[2016-12-10] MEDS ORDERED: PHENYLephrine (100 MCG/ML) 5ML SYG ONE (15:16)
--- NOTE | 2016-12-10 15:33 | PN ---
Date/Time of Note Date/Time of Note DATE: 12/10/16 TIME: 15:30 Assessment/Plan VTE Prophylaxis VTE Prophylaxis Intervention: SCD's Lines/Catheters IV Catheter Type (from Nrs): Saline Lock Assessment/Plan Assessment/Plan 1. Right lung mass and right pleural effusion, s/p thoracentesis, lung mass biopsy 12/10/2016. 2. History of right arm sarcoma several years ago. Subjective 24 Hr Interval Summary Free Text/Dictation no event. Lung mass biopsy today Exam/Review of Systems Vital Signs Vitals Vital Signs Date Time Temp Pulse Resp B/P Pulse Ox O2 Delivery O2 Flow Rate FiO2 12/10/16 12:00 79 16 96 21 12/10/16 08:00 98.8 101/57 12/09/16 20:00 Nasal Cannula 2.0 Intake and Output 12/09/16 12/09/16 12/10/16 15:00 23:00 07:00 Intake Total 1080 ml 400 ml Balance 1080 ml 400 ml Exam Constitutional: alert, oriented, well developed Psych: nl mood/affect, no complaints Head: atraumatic, normocephalic Eyes: EOMI, nl conjunctiva, nl lids ENMT: nl external ears & nose, nl lips & teeth Neck: non-tender, supple Respiratory: clear to auscultation, normal air movement, No congested cough, No crackles/rales, No diminished breath sounds, No intercostal retraction, No labored breathing, No other, No respirations, No tactile fremitus, No wheezing Cardiovascular: nl pulses, regular rate and rhythm, No S3, No S4, No bruits, No diastolic murmur, No edema, No gallop, No irregular rhythm, No jugular venous distention (JVD), No murmurs/extra sounds, No other, No rub, No systolic murmur Gastrointestinal: nl liver, spleen, non-tender, soft, No ascites, No bowel sounds, No distended, No firm, No hepatomegaly, No mass , No other, No rebound or guarding, No splenomegaly, No surgical scars, No tender Musculoskeletal: nl extremities to inspection Extremities: normal pulses, No calf tenderness, No clubbing, No cyanosis, No edema, No other, No palpable cord, No pitting pedal edema, No tenderness Neurological: TOOL SHAPER SET UP OPERATOR II-XII intact, nl mental status, nl speech, nl strength Skin: nl turgor Lymph: nl lymph nodes Results Result Diagram: 12/10/16 0530 12/10/16 0530 Results 24 hrs Laboratory Tests Test 12/10/16 05:30 White Blood Count 11.0 H Red Blood Count 4.11 L Hemoglobin 11.7 L Hematocrit 35.5 L Mean Corpuscular Volume 86.4 Mean Corpuscular Hemoglobin 28.5 L Mean Corpuscular Hemoglobin Concent 33.0 Red Cell Distribution Width 13.9 Platelet Count 429 H Mean Platelet Volume 10.0 Neutrophils % 59.0 Lymphocytes % 23.8 Monocytes % 7.0 Eosinophils % 9.1 H Basophils % 0.8 Nucleated Red Blood Cells % 0.0 Neutrophils # 6.5 Lymphocytes # 2.6 Monocytes # 0.8 Eosinophils # 1.0 H Basophils # 0.1 Nucleated Red Blood Cells # 0.0 Sodium Level 139 Potassium Level 4.5 Chloride Level 105 Carbon Dioxide Level 26 Anion Gap 13 Blood Urea Nitrogen 15 Creatinine 0.64 Glucose Level 103 Calcium Level 9.1 Magnesium Level 2.1 Total Bilirubin 0.1 L Direct Bilirubin 0.00 Indirect Bilirubin 0.1 Aspartate Amino Transf (AST/SGOT) 14 L Alanine Aminotransferase (ALT/SGPT) 19 Alkaline Phosphatase 78 Total Protein 7.4 Albumin 3.5 Globulin 3.90 H Albumin/Globulin Ratio 0.89 Medications Medications Current Medications Ondansetron HCl (Zofran Inj) 4 mg Q6H PRN IV NAUSEA AND/OR VOMITING; Start 12/06/16 at 23:00 Acetaminophen (Tylenol Tab) 650 mg Q6H PRN PO PAIN LEVEL 1-3 OR FEVER Last administered on 12/08/16 20:10; Admin Dose 650 MG; Start 12/06/16 at 23:00 Ketorolac Tromethamine (Toradol) 15 mg Q6H PRN IV PAIN Last administered on 22:42; Admin Dose 15 MG; Start 12/08/16 at 01:00; Stop 12/11/16 at 00:59 Morphine Sulfate (morphine) 2 mg Q4H PRN IV pain; Start 12/08/16 at 15:30 Guaifenesin (Robitussin Liquid Cup) 200 mg Q4H PRN PO COUGH Last administered on 12/09/16 16:41; Admin Dose 200 MG; Start 12/09/16 at 16:30 Phenol (Cepastat Lozenge) 1 lozenge Q1H PRN MT COUGH; Start 12/09/16 at 16:30 WILMAN DUNLAP MD Dec 10, 2016 15:33
[2016-12-10] MEDS ORDERED: OXYCODONE/ACETAMINOPHEN (5/325) TAB PO PRN ×2 (16:00)
[2016-12-10] MEDS ORDERED: ALBUTEROL 0.083% (NEB) 2.5 MG/3 ML AMP HHN PRN (16:00)
[2016-12-10] MEDS ORDERED: EPHEDrine SULFATE 50 MG/5 ML SYG IV PRN (16:00)
[2016-12-10] MEDS ORDERED: hydrALAzine 20 MG INJ IV PRN (16:00)
[2016-12-10] MEDS ORDERED: FENTAnyl 50 MCG/ML VIAL IV PRN ×3 (16:00)
--- NOTE | 2016-12-10 16:09 | RADRPT ---
PROCEDURE: CT guided left lung mass biopsy. CLINICAL INDICATION: Left lung mass. History of sarcoma of the upper extremity. TECHNIQUE: Informed consent was obtained. The procedure, risks, benefits, complications and alternatives were e xplained to the patient. Risks including bleeding, pneumothorax, and infection were explained. The p atient understood and was willing to proceed. A procedural pause was performed. The patient's name, date of , and procedure to be performed were verified. One or more of the following dose red uction techniques were used: Automated exposure control, adjustment of the mA and/or kV according to patient size, use of iterative reconstruction technique. Using local anesthetic, sterile technique and CT guidance, a 20-gauge automated core biopsy needle w as used to biopsy the mass in the left lung anteriorly. Multiple passes were made. Adequate tissue was obtained according to the pathologist present during the procedure. The needle was removed. A postprocedural scan was performed. A dressing was applied. The patient tolerated procedure well. COMPARISON: CT scan of the chest dated 12/07/2016. FINDINGS: Initial images demonstrate the tip of the needle at the edge of the lesion in question. Post biopsy images demonstrate no immediate complication. IMPRESSION: 1. Successful CT guided biopsy of left lung mass. RPTAT: QQ .Mani Griffith MD, MD Date Time Electronically viewed and signed by .Mani Griffith MD, MD on 12/10/2016 16:09 .R/
[2016-12-10] MEDS: KETOROLAC 15 MG INJ IV PRN (23:35)
[2016-12-11] MEDS: ALBUTEROL/IPRATROPIUM (NEB) 3 ML AMP HHN SCH ×4 (00:54→13:00)
[2016-12-11 02:58] VITALS: BP 104/57; RESP 18
[2016-12-11] MEDS: morphine 2 MG INJ IV PRN ×2 (03:04→07:59)
[2016-12-11 06:21] LABS: BASOPHIL # 0.1 10^3/ul (0.0-0.1); BASOPHILS % 0.9 % (0.0-2.0); EOSINOPHILS # 0.8 10^3/ul (0.0-0.5); EOSINOPHILS % 7.8 % (0.0-7.0); HEMATOCRIT 36.3 % (37.0-47.0); HEMOGLOBIN 11.7 g/dl (12.0-16.0); LYMPHOCYTES # 2.6 10^3/ul (0.8-2.9); LYMPHOCYTES % 25.5 % (15.0-51.0); MEAN CORPUSCULAR HEMOGLOBIN 27.8 pg (29.0-33.0); MEAN CORPUSCULAR HGB CONC 32.2 g/dl (32.0-37.0); MEAN CORPUSCULAR VOLUME 86.2 fl (82.0-101.0); MEAN PLATELET VOLUME 9.8 fl (7.4-10.4); MONOCYTE # 0.8 10^3/ul (0.3-0.9); MONOCYTES % 7.8 % (0.0-11.0); NEUTROPHIL # 5.9 10^3/ul (1.6-7.5); NEUTROPHILS % 57.7 % (39.0-77.0); PLATELET COUNT 413 10^3/UL (140-415); RED BLOOD COUNT 4.21 10^6/ul (4.20-5.40); RED CELL DISTRIBUTION WIDTH 14.1 % (11.5-14.5); WHITE BLOOD COUNT 10.2 10^3/ul (4.8-10.8)
[2016-12-11 06:55] LABS: ALBUMIN 3.5 g/dl (3.3-4.9); ALBUMIN/GLOBULIN RATIO 0.83; BILIRUBIN,INDIRECT 0.1 mg/dl (0-1.1); BILIRUBIN,TOTAL 0.1 mg/dl (0.2-1.3); CALCIUM 9.2 mg/dl (8.4-10.2); CREATININE 0.75 mg/dl (0.44-1.00); MAGNESIUM 2.1 mg/dl (1.7-2.5); POTASSIUM 4.7 mmol/L (3.5-5.1); TOTAL PROTEIN 7.7 g/dl (6.1-8.1)
[2016-12-11 08:00] VITALS: BP 99/57; RESP 18
[2016-12-11 14:00] VITALS: BP 99/55; RESP 18
[2016-12-11 15:07] VITALS: BP 113/55; PULSE 94; RESP 18
--- NOTE | 2016-12-11 15:47 | PN ---
Date/Time of Note Date/Time of Note DATE: 12/11/16 TIME: 15:44 Assessment/Plan VTE Prophylaxis VTE Prophylaxis Intervention: SCD's Lines/Catheters IV Catheter Type (from Nrsg): Peripheral IV Assessment/Plan Assessment/Plan 1. Left and right lower lung mass with left pleural effusion, s/p thoracentesis , lung mass biopsy 12/10/2016, follow up with pathology 2. History of right arm sarcoma several years ago. Subjective 24 Hr Interval Summary Free Text/Dictation less shortness of breath after thoracentesis. afebrile Exam/Review of Systems Vital Signs Vitals Vital Signs Date Time Temp Pulse Resp B/P Pulse Ox O2 Delivery O2 Flow Rate FiO2 12/11/16 15:07 98.4 94 18 113/55 95 Room Air 12/11/16 09:00 2.0 12/11/16 00:55 21 Intake and Output 12/10/16 12/10/16 12/11/16 15:00 23:00 07:00 Intake Total 400 ml 600 ml Balance 400 ml 600 ml Exam Constitutional: alert, oriented, well developed Psych: nl mood/affect, no complaints Head: atraumatic, normocephalic Eyes: EOMI, PERRL, nl conjunctiva, nl lids, nl sclera ENMT: nl external ears & nose, nl lips & teeth, nl nasal mucosa & septum Neck: non-tender, supple Respiratory: clear to auscultation, diminished breath sounds (on left lower chest) Cardiovascular: nl pulses, regular rate and rhythm, No S3, No S4, No bruits, No diastolic murmur, No edema, No gallop, No irregular rhythm, No jugular venous distention (JVD), No murmurs/extra sounds, No other, No rub, No systolic murmur Gastrointestinal: nl liver, spleen, non-tender, soft, No ascites, No bowel sounds, No distended, No firm, No hepatomegaly, No mass , No other, No rebound or guarding, No splenomegaly, No surgical scars, No tender Musculoskeletal: nl extremities to inspection Extremities: normal pulses, No calf tenderness, No clubbing, No cyanosis, No edema, No other, No palpable cord, No pitting pedal edema, No tenderness Neurological: ANCIENT ART CURATOR II-XII intact, nl mental status, nl speech, nl strength Skin: nl turgor, rash or lesions Lymph: nl lymph nodes Results Result Diagram: 12/11/16 0551 12/11/16 0551 Results 24 hrs Laboratory Tests Test 12/11/16 05:51 White Blood Count 10.2 Red Blood Count 4.21 Hemoglobin 11.7 L Hematocrit 36.3 L Mean Corpuscular Volume 86.2 Mean Corpuscular Hemoglobin 27.8 L Mean Corpuscular Hemoglobin Concent 32.2 Red Cell Distribution Width 14.1 Platelet Count 413 Mean Platelet Volume 9.8 Neutrophils % 57.7 Lymphocytes % 25.5 Monocytes % 7.8 Eosinophils % 7.8 H Basophils % 0.9 Nucleated Red Blood Cells % 0.0 Neutrophils # 5.9 Lymphocytes # 2.6 Monocytes # 0.8 Eosinophils # 0.8 H Basophils # 0.1 Nucleated Red Blood Cells # 0.0 Sodium Level 137 Potassium Level 4.7 Chloride Level 105 Carbon Dioxide Level 27 Anion Gap 10 Blood Urea Nitrogen 17 Creatinine 0.75 Glucose Level 107 Calcium Level 9.2 Magnesium Level 2.1 Total Bilirubin 0.1 L Direct Bilirubin 0.00 Indirect Bilirubin 0.1 Aspartate Amino Transf (AST/SGOT) 18 Alanine Aminotransferase (ALT/SGPT) 18 Alkaline Phosphatase 83 Total Protein 7.7 Albumin 3.5 Globulin 4.20 H Albumin/Globulin Ratio 0.83 Medications Medications Current Medications Ondansetron HCl (Zofran Inj) 4 mg Q6H PRN IV NAUSEA AND/OR VOMITING Last administered on 12/11/16 15:03; Admin Dose 4 MG; Start 12/06/16 at 23:00 Acetaminophen (Tylenol Tab) 650 mg Q6H PRN PO PAIN LEVEL 1-3 OR FEVER Last administered on 12/08/16 20:10; Admin Dose 650 MG; Start 12/06/16 at 23:00 Morphine Sulfate (morphine) 2 mg Q4H PRN IV pain Last administered on 07:59; Admin Dose 2 MG; Start 12/08/16 at 15:30 Guaifenesin (Robitussin Liquid Cup) 200 mg Q4H PRN PO COUGH Last administered on 12/09/16 16:41; Admin Dose 200 MG; Start 12/09/16 at 16:30 Phenol (Cepastat Lozenge) 1 lozenge Q1H PRN MT COUGH; Start 10/9/17 at 16:30 WILMAN DUNLAP MD Dec 11, 2016 15:47
[2016-12-11] MEDS: ALBUTEROL/IPRATROPIUM (NEB) 3 ML AMP HHN PRN ×2 (16:47→22:03)
[2016-12-11 20:14] VITALS: BP 104/62; RESP 18
[2016-12-12] MEDS: morphine 2 MG INJ IV PRN ×2 (00:30→04:42)
[2016-12-12 03:00] VITALS: BP 99/56; RESP 19
[2016-12-12 05:15] LABS: BASOPHIL # 0.1 10^3/ul (0.0-0.1); BASOPHILS % 0.9 % (0.0-2.0); EOSINOPHILS # 0.7 10^3/ul (0.0-0.5); HEMATOCRIT 36.8 % (37.0-47.0); HEMOGLOBIN 12.1 g/dl (12.0-16.0); LYMPHOCYTES # 2.9 10^3/ul (0.8-2.9); LYMPHOCYTES % 25.1 % (15.0-51.0); MEAN CORPUSCULAR HEMOGLOBIN 27.9 pg (29.0-33.0); MEAN CORPUSCULAR HGB CONC 32.9 g/dl (32.0-37.0); MEAN CORPUSCULAR VOLUME 84.8 fl (82.0-101.0); MEAN PLATELET VOLUME 9.9 fl (7.4-10.4); MONOCYTE # 0.9 10^3/ul (0.3-0.9); MONOCYTES % 7.8 % (0.0-11.0); NEUTROPHIL # 6.8 10^3/ul (1.6-7.5); NEUTROPHILS % 59.8 % (39.0-77.0); PLATELET COUNT 459 10^3/UL (140-415); RED BLOOD COUNT 4.34 10^6/ul (4.20-5.40); RED CELL DISTRIBUTION WIDTH 13.6 % (11.5-14.5); WHITE BLOOD COUNT 11.4 10^3/ul (4.8-10.8)
[2016-12-12 05:55] LABS: ALBUMIN 3.9 g/dl (3.3-4.9); ALBUMIN/GLOBULIN RATIO 1.02; BILIRUBIN,INDIRECT 0.1 mg/dl (0-1.1); BILIRUBIN,TOTAL 0.1 mg/dl (0.2-1.3); CALCIUM 9.3 mg/dl (8.4-10.2); CREATININE 0.66 mg/dl (0.44-1.00); POTASSIUM 4.4 mmol/L (3.5-5.1); TOTAL PROTEIN 7.7 g/dl (6.1-8.1)
[2016-12-12 07:40] VITALS: BP 99/54; RESP 16
[2016-12-12 14:05] VITALS: BP 106/58; RESP 16
--- NOTE | 2016-12-12 14:54 | PN ---
Date/Time of Note Date/Time of Note DATE: 12/12/16 TIME: 14:52 Assessment/Plan VTE Prophylaxis VTE Prophylaxis Intervention: SCD's Lines/Catheters IV Catheter Type (from Nrsg): Saline Lock Assessment/Plan Assessment/Plan 1. Left and right lower lung mass with left pleural effusion, s/p thoracentesis , lung mass biopsy 12/10/2016, follow up with pathology 2. History of right arm sarcoma several years ago. Subjective 24 Hr Interval Summary Free Text/Dictation shortness of breath Exam/Review of Systems Vital Signs Vitals Vital Signs Date Time Temp Pulse Resp B/P Pulse Ox O2 Delivery O2 Flow Rate FiO2 12/12/16 14:05 97.9 90 16 106/58 98 12/11/16 22:03 21 12/11/16 15:07 Room Air 12/11/16 09:00 2.0 Intake and Output 12/11/16 12/11/16 12/12/16 15:00 23:00 07:00 Intake Total 980 ml 720 ml Balance 980 ml 720 ml Exam Constitutional: alert, oriented, well developed Psych: nl mood/affect, no complaints Head: atraumatic, normocephalic Eyes: EOMI, PERRL, nl conjunctiva, nl lids, nl sclera ENMT: mucosa pink and moist, nl external ears & nose, nl lips & teeth, nl nasal mucosa & septum Neck: non-tender, supple Respiratory: diminished breath sounds Cardiovascular: nl pulses, regular rate and rhythm, No S3, No S4, No bruits, No diastolic murmur, No edema, No gallop, No irregular rhythm, No jugular venous distention (JVD), No murmurs/extra sounds, No other, No rub, No systolic murmur Gastrointestinal: nl liver, spleen, non-tender, soft, No ascites, No bowel sounds, No distended, No firm, No hepatomegaly, No mass , No other, No rebound or guarding, No splenomegaly, No surgical scars, No tender Musculoskeletal: nl extremities to inspection Extremities: normal pulses, No calf tenderness, No clubbing, No cyanosis, No edema, No other, No palpable cord, No pitting pedal edema, No tenderness Neurological: NAIL GALVANIZER II-XII intact, nl mental status, nl speech, nl strength Skin: nl turgor Lymph: nl lymph nodes Results Result Diagram: 12/12/16 0429 12/12/16 0429 Results 24 hrs Laboratory Tests Test 12/12/16 04:29 White Blood Count 11.4 H Red Blood Count 4.34 Hemoglobin 12.1 Hematocrit 36.8 L Mean Corpuscular Volume 84.8 Mean Corpuscular Hemoglobin 27.9 L Mean Corpuscular Hemoglobin Concent 32.9 Red Cell Distribution Width 13.6 Platelet Count 459 H Mean Platelet Volume 9.9 Neutrophils % 59.8 Lymphocytes % 25.1 Monocytes % 7.8 Eosinophils % 6.0 Basophils % 0.9 Nucleated Red Blood Cells % 0.0 Neutrophils # 6.8 Lymphocytes # 2.9 Monocytes # 0.9 Eosinophils # 0.7 H Basophils # 0.1 Nucleated Red Blood Cells # 0.0 Sodium Level 138 Potassium Level 4.4 Chloride Level 103 Carbon Dioxide Level 26 Anion Gap 13 Blood Urea Nitrogen 12 Creatinine 0.66 Glucose Level 100 Calcium Level 9.3 Magnesium Level 2.0 Total Bilirubin 0.1 L Direct Bilirubin 0.00 Indirect Bilirubin 0.1 Aspartate Amino Transf (AST/SGOT) 15 Alanine Aminotransferase (ALT/SGPT) 19 Alkaline Phosphatase 81 Total Protein 7.7 Albumin 3.9 Globulin 3.80 H Albumin/Globulin Ratio 1.02 Medications Medications Current Medications Ondansetron HCl (Zofran Inj) 4 mg Q6H PRN IV NAUSEA AND/OR VOMITING Last administered on 12/11/16 15:03; Admin Dose 4 MG; Start 12/06/16 at 23:00 Acetaminophen (Tylenol Tab) 650 mg Q6H PRN PO PAIN LEVEL 1-3 OR FEVER Last administered on 12/08/16 20:10; Admin Dose 650 MG; Start 12/06/16 at 23:00 Morphine Sulfate (morphine) 2 mg Q4H PRN IV pain Last administered on 04:42; Admin Dose 2 MG; Start 12/08/16 at 15:30 Guaifenesin (Robitussin Liquid Cup) 200 mg Q4H PRN PO COUGH Last administered on 12/09/16 16:41; Admin Dose 200 MG; Start 12/09/16 at 16:30 Phenol (Cepastat Lozenge) 1 lozenge Q1H PRN MT COUGH; Start 12/09/16 at 16:30 WILMAN DUNLAP MD Dec 12, 2016 14:54
[2016-12-12] MEDS: ALBUTEROL/IPRATROPIUM (NEB) 3 ML AMP HHN PRN ×2 (15:34→21:00)
[2016-12-12 20:00] VITALS: BP 106/66; PULSE 75; RESP 18
--- NOTE | 2016-12-12 20:37 | RADRPT ---
PROCEDURE: XR Chest. CLINICAL INDICATION: Lung mass. Pleural effusion. TECHNIQUE: Single frontal view. COMPARISON: 12/08/2016. FINDINGS: The right lung is clear. There is a large mass occupying the left mid and lower lung zones and there is a small left pleural effusion. The heart size is normal. There is no right pleural effusion. There is no pneumothorax. IMPRESSION: 1. Large mass in the left mid and lower lung zones. 2. Small left pleural effusion. 3. Otherwise normal chest x-ray. RPTAT: QQ .Mani Griffith MD, MD Date Time Electronically viewed and signed by .Mani Griffith MD, MD on 12/12/2016 20:36 .R/
[2016-12-13] MEDS: morphine 2 MG INJ IV PRN ×3 (01:34→23:55)
[2016-12-13 01:45] VITALS: BP 98/58; PULSE 98; RESP 18
[2016-12-13 06:10] LABS: BASOPHIL # 0.1 10^3/ul (0.0-0.1); BASOPHILS % 0.9 % (0.0-2.0); EOSINOPHILS # 0.6 10^3/ul (0.0-0.5); EOSINOPHILS % 4.9 % (0.0-7.0); HEMATOCRIT 35.9 % (37.0-47.0); HEMOGLOBIN 11.7 g/dl (12.0-16.0); LYMPHOCYTES # 2.9 10^3/ul (0.8-2.9); LYMPHOCYTES % 25.2 % (15.0-51.0); MEAN CORPUSCULAR HEMOGLOBIN 27.8 pg (29.0-33.0); MEAN CORPUSCULAR HGB CONC 32.6 g/dl (32.0-37.0); MEAN CORPUSCULAR VOLUME 85.3 fl (82.0-101.0); MONOCYTES % 8.5 % (0.0-11.0); NEUTROPHIL # 6.8 10^3/ul (1.6-7.5); NEUTROPHILS % 60.1 % (39.0-77.0); PLATELET COUNT 451 10^3/UL (140-415); RED BLOOD COUNT 4.21 10^6/ul (4.20-5.40); WHITE BLOOD COUNT 11.3 10^3/ul (4.8-10.8)
[2016-12-13 06:52] LABS: ALBUMIN 3.8 g/dl (3.3-4.9); ALBUMIN/GLOBULIN RATIO 1.02; BILIRUBIN,INDIRECT 0.2 mg/dl (0-1.1); BILIRUBIN,TOTAL 0.2 mg/dl (0.2-1.3); CREATININE 0.62 mg/dl (0.44-1.00); POTASSIUM 4.5 mmol/L (3.5-5.1); TOTAL PROTEIN 7.5 g/dl (6.1-8.1)
[2016-12-13 07:45] VITALS: BP 111/60; RESP 16
[2016-12-13] MEDS: ALBUTEROL/IPRATROPIUM (NEB) 3 ML AMP HHN PRN (12:50)
[2016-12-13 14:20] VITALS: BP 97/53; RESP 18
--- NOTE | 2016-12-13 17:02 | PN ---
Date/Time of Note Date/Time of Note DATE: 12/13/16 TIME: 16:59 Assessment/Plan VTE Prophylaxis VTE Prophylaxis Intervention: SCD's Lines/Catheters IV Catheter Type (from Nrs): Saline Lock Urinary Cath still in place: No Assessment/Plan Assessment/Plan 1. 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 Arreola for oncology consultation(called) 2. History of right arm sarcoma three years ago, resected in [place], no chemotherapy Subjective 24 Hr Interval Summary Free Text/Dictation no event Exam/Review of Systems Vital Signs Vitals Vital Signs Date Time Temp Pulse Resp B/P Pulse Ox O2 Delivery O2 Flow Rate FiO2 12/13/16 14:20 98.2 98 18 97/53 95 12/13/16 12:51 21 12/13/16 01:45 Room Air 12/11/16 09:00 2.0 Intake and Output 12/12/16 12/12/16 12/13/16 15:00 23:00 07:00 Intake Total 460 ml 650 ml Balance 460 ml 650 ml Exam Constitutional: alert, oriented, well developed Head: atraumatic, normocephalic Eyes: EOMI, PERRL, nl conjunctiva, nl lids, nl sclera ENMT: nl external ears & nose, nl lips & teeth, nl nasal mucosa & septum Neck: non-tender, supple Respiratory: clear to auscultation, diminished breath sounds Cardiovascular: nl pulses, regular rate and rhythm, No S3, No S4, No bruits, No diastolic murmur, No edema, No gallop, No irregular rhythm, No jugular venous distention (JVD), No murmurs/extra sounds, No other, No rub, No systolic murmur Gastrointestinal: nl liver, spleen, non-tender, soft, No ascites, No bowel sounds, No distended, No firm, No hepatomegaly, No mass , No other, No rebound or guarding, No splenomegaly, No surgical scars, No tender Musculoskeletal: nl extremities to inspection Extremities: normal pulses, No calf tenderness, No clubbing, No cyanosis, No edema, No other, No palpable cord, No pitting pedal edema, No tenderness Neurological: TURBINATED BONE GRINDER II-XII intact, nl mental status, nl speech, nl strength Skin: nl turgor Results Result Diagram: 12/13/16 0520 12/13/16 0520 Results 24 hrs Laboratory Tests Test 12/13/16 05:20 White Blood Count 11.3 H Red Blood Count 4.21 Hemoglobin 11.7 L Hematocrit 35.9 L Mean Corpuscular Volume 85.3 Mean Corpuscular Hemoglobin 27.8 L Mean Corpuscular Hemoglobin Concent 32.6 Red Cell Distribution Width 14.0 Platelet Count 451 H Mean Platelet Volume 10.0 Neutrophils % 60.1 Lymphocytes % 25.2 Monocytes % 8.5 Eosinophils % 4.9 Basophils % 0.9 Nucleated Red Blood Cells % 0.0 Neutrophils # 6.8 Lymphocytes # 2.9 Monocytes # 1.0 H Eosinophils # 0.6 H Basophils # 0.1 Nucleated Red Blood Cells # 0.0 Sodium Level 140 Potassium Level 4.5 Chloride Level 105 Carbon Dioxide Level 25 Anion Gap 15 Blood Urea Nitrogen 12 Creatinine 0.62 Glucose Level 99 Calcium Level 9.0 Magnesium Level 2.0 Total Bilirubin 0.2 Direct Bilirubin 0.00 Indirect Bilirubin 0.2 Aspartate Amino Transf (AST/SGOT) 17 Alanine Aminotransferase (ALT/SGPT) 18 Alkaline Phosphatase 84 Total Protein 7.5 Albumin 3.8 Globulin 3.70 H Albumin/Globulin Ratio 1.02 Medications Medications Current Medications Ondansetron HCl (Zofran Inj) 4 mg Q6H PRN IV NAUSEA AND/OR VOMITING Last administered on 12/11/16 15:03; Admin Dose 4 MG; Start 12/06/16 at 23:00 Acetaminophen (Tylenol Tab) 650 mg Q6H PRN PO PAIN LEVEL 1-3 OR FEVER Last administered on 12/08/16 20:10; Admin Dose 650 MG; Start 12/06/16 at 23:00 Morphine Sulfate (morphine) 2 mg Q4H PRN IV pain Last administered on 05:38; Admin Dose 2 MG; Start 12/08/16 at 15:30 Guaifenesin (Robitussin Liquid Cup) 200 mg Q4H PRN PO COUGH Last administered on 12/09/16 16:41; Admin Dose 200 MG; Start 12/09/16 at 16:30 Phenol (Cepastat Lozenge) 1 lozenge Q1H PRN MT COUGH; Start 12/09/16 at 16:30 WILMAN DUNLAP MD Dec 13, 2016 17:02
[2016-12-13 20:00] VITALS: BP 103/61; RESP 19
[2016-12-13] MEDS ORDERED: IOHEXOL 300MG/ML 30 ML BTL ONE (23:11)
[2016-12-14] MEDS: ALBUTEROL/IPRATROPIUM (NEB) 3 ML AMP HHN PRN ×3 (00:04→23:11)
[2016-12-14] MEDS ORDERED: SOD CHLORIDE 0.9% 100 ML ONE (00:16)
[2016-12-14] MEDS ORDERED: IOHEXOL 300MG/ML 150 ML BTL ONE (00:16)
[2016-12-14] MEDS: SOD CHLORIDE 0.9% 1,000 ML IV SCH ×4 (00:22→20:19)
[2016-12-14 02:20] VITALS: BP 109/71; RESP 16
[2016-12-14] MEDS: morphine 2 MG INJ IV PRN (06:21)
[2016-12-14 07:57] VITALS: BP 92/53; RESP 19
[2016-12-14 09:15] VITALS: BP 103/58
--- NOTE | 2016-12-14 09:16 | RADRPT ---
PROCEDURE: CT brain without and with contrast CLINICAL INDICATION: metastatic sarcoma TECHNIQUE: CT of the brain without and with contrast was performed on a multidetector CT scanner, with multiplanar reformats. 75 cc Omnipaque-300 intravenous contrast were administered. One or mor e of the following dose reduction techniques were used: Automated exposure control, adjustment in mA and / or kV according to patient size, use of iterative reconstructive technique. CTDIvol = 44 mGy and total DLP = 1440 mGy-cm. COMPARISON: None available FINDINGS: No acute intracranial hemorrhage, or intracranial mass lesion is identified. No extra-axial fluid c ollection is seen. There is no mass effect. No midline shift is identified. Ventricles and sulci are within normal limits for size and configuration. The density of the brain is within normal limits. Ronquillo-white differentiation is preserved. No abno rmal parenchymal, leptomeningeal or dural enhancement is identified. Osseous structures are unremarkable. Mastoid air cells and imaged paranasal sinuses grossly clear. IMPRESSION: No intracranial metastatic disease identified; unremarkable CT of the brain. RPTAT: QQ .Jorje San MD, MD Date Time Electronically viewed and signed by .Jorje San MD, MD on 12/14/2016 09:16 .O/
[2016-12-14 14:00] VITALS: BP 124/70; RESP 18
--- NOTE | 2016-12-14 14:12 | PN ---
Date/Time of Note Date/Time of Note DATE: 12/14/16 TIME: 14:06 Assessment/Plan VTE Prophylaxis VTE Prophylaxis Intervention: SCD's Lines/Catheters IV Catheter Type (from Nrs): Peripheral IV Urinary Cath still in place: No Assessment/Plan Chief Complaint/Hosp Course Assessment/Plan: 1. Left lung mass. 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 pleural effusion. S/p thoracentesis. monitor chest imaging. 3. hx asthma. no active issue at this time. bronchodilators as needed Dispo/Plan: oncologist to follow. Will follow up. Discussed plan of care wit Dr. Russell Problems: Subjective 24 Hr Interval Summary Free Text/Dictation no s/s of distress. no reports of chest pain or shortness of breath Exam/Review of Systems Vital Signs Vitals Vital Signs Date Time Temp Pulse Resp B/P Pulse Ox O2 Delivery O2 Flow Rate FiO2 12/14/16 13:52 102 20 96 21 12/14/16 09:15 103/58 12/14/16 07:57 98.0 12/13/16 01:45 Room Air 12/11/16 09:00 2.0 Intake and Output 12/13/16 12/13/16 12/14/16 15:00 23:00 07:00 Intake Total 620 ml 950 ml Balance 620 ml 950 ml Exam Constitutional: alert, oriented Psych: no complaints Head: normocephalic Eyes: nl conjunctiva Neck: supple Respiratory: clear to auscultation, normal air movement Cardiovascular: regular rate and rhythm Gastrointestinal: non-tender, soft Musculoskeletal: nl extremities to inspection Neurological: CONTROL OFFICER II-XII intact, nl mental status, nl speech Results Result Diagram: 12/13/1651912/13/16519 Medications Medications Current Medications Ondansetron HCl (Zofran Inj) 4 mg Q6H PRN IV NAUSEA AND/OR VOMITING Last administered on 12/11/16 15:03; Admin Dose 4 MG; Start 12/06/16 at 23:00 Acetaminophen (Tylenol Tab) 650 mg Q6H PRN PO PAIN LEVEL 1-3 OR FEVER Last administered on 12/08/16 20:10; Admin Dose 650 MG; Start 12/06/16 at 23:00 Morphine Sulfate (morphine) 2 mg Q4H PRN IV pain Last administered on 06:21; Admin Dose 2 MG; Start 12/08/16 at 15:30 Guaifenesin (Robitussin Liquid Cup) 200 mg Q4H PRN PO COUGH Last administered on 12/09/16 16:41; Admin Dose 200 MG; Start 12/09/16 at 16:30 Phenol 1 lozenge 1 lozenge Q1H PRN MT COUGH; Start 12/09/16 at 16:30 Sodium Chloride (NS) 1,000 ml @ 100 mls/hr Q10H IV Last administered on 00:22; Admin Dose 100 MLS/HR; Start 12/14/16 at 00:30; Stop 12/15/16 at 00:29 ERIN CONTRERAS Dec 14, 2016 14:12
--- NOTE | 2016-12-14 15:50 | RADRPT ---
PROCEDURE: CT abdomen and pelvis with contrast. CLINICAL INDICATION: Metastatic sarcoma to the lungs. Evaluate for primary lesion. TECHNIQUE: CT scan of the abdomen and pelvis with contrast was performed after the uneventful intrav enous administration of 80 cc of Omnipaque-300. Coronal and sagittal reformatted images were obtaine d from the axial source images. The total exam CTDI equals 13.36 mGy and the total exam DLP equals 7 80.81 mGy-cm. One or more of the following dose reduction techniques were used: - Automated exposure control. - Adjustment of the mA and/or kV according to patient size. - Use of iterative reconstruction technique. COMPARISON: Chest x-ray dated 12/12/[address] dated 12/07/2016. FINDINGS: Visualized lower thorax: A heterogeneous mass lesion is seen occupying a large portion of the visua lized left lung base, consistent with the patient's history of metastatic sarcoma. There is a small loculated left pleural effusion. There is a dominant paraesophageal lymph node measuring 23 mm in sh ort axis. The visualized right lung is clear. The visualized heart is unremarkable. Hepatobiliary system and spleen: The liver is normal in size and density with no focal hepatic lesi on identified. There is no intra or extrahepatic biliary ductal dilatation. The gallbladder is surgi jamin absent. The spleen is unremarkable. The pancreas is unremarkable. Adrenal glands and genitourinary system: The adrenal glands are unremarkable. There is a sub-centim eter hypodensity at the midportion of the right kidney that has too small to further characterize. T here is no hydronephrosis or additional renal mass. The urinary bladder is unremarkable. There is an intrauterine device in place. There is a 3.4 x 2.9 cm heterogeneous lesion in the right adnexa cont aining fat, consistent with a dermoid. The left adnexa is unremarkable. Gastrointestinal system: The stomach and small bowel are unremarkable. There is no bowel wall thick ening or evidence of obstruction. The appendix is not identified, but there is no focal inflammatory process in the right lower quadrant. Peritoneum, vascular system, lymphatics: There is no free intraperitoneal air or free fluid. There is no mesenteric or retroperitoneal adenopathy. The aorta is nonaneurysmal. There is a small fat con taining epigastric hernia. Musculoskeletal system and soft tissues: There are no concerning osseous lesions. The soft tissues are unremarkable. IMPRESSION: 1. Large, heterogeneous mass lesion occupying a large portion of the visualized left lung base, con cordant with the patient's history of metastatic sarcoma to the lung. 2. Large paraesophageal lymph node measuring 23 mm in short axis, consistent with metastatic diseas e. 3. Right adnexal dermoid lesion measuring 3.4 x 2.9 cm. 4. No discrete primary lesion or evidence of metastatic disease within the abdomen or pelvis. RPTAT: HLBP .Cristino Sams MD, Date Time Electronically viewed and signed by .Cristino Sams MD, on 12/14/2016 15:50 .P/
--- NOTE | 2016-12-14 16:55 | CONS ---
Date/Time of Note Date/Time of Note DATE: 12/14/16 TIME: 16:38 Assessment/Plan Assessment/Plan Chief Complaint/Hosp Course Left lung mass and shortness of breath. Consult for recurrent sarcoma. Problems: Additional Assessment/Plan 41 year old female with h/o sarcoma of the right forearm about years ago, treated with surgery and radiation, now present with recurrence to the left lung associated with large pleural effusion. The mass is VERY large and fills about half the left chest, and fluid was filling the other half of left chest until thoracentesis was done. She does feel better since fluid removed. The preliminary pathology shows spindle shaped cells consistent with sarcoma, with further IHCs pending. The patient feels better for now will less shortness of breath. She is highly motivated to stay in the hospital and start a treatment plan. The tumor is not resectable and she needs to be treated with chemotherapy. Ultimately the best treatment for sarcoma is surgery, and if she were to have a good enough response to systemic therapy, then surgery can be considered. The pleural fluid cytology is negative, but I would suspect there are tumor cells in the fluid. Will review with Dr. Mathew and Maxwell regarding plan of care and chemotherapy for sarcoma once final diagnosis is ready with IHCs. Consultation Date/Type/Reason Admit Date/Time Dec 06, 2016 at 20:27 Date of Consultation: Dec 14, 2016 Type of Consultation: Oncology Reason for Consultation Recurrent sarcoma with mets to lung. Hx of Present Illness 41 year old female with history of unknown type of sarcoma, originally diagnosed about years ago when she lived in [place] and was treated with resection and radiation to the right forearm, and no chemotherapy. She now reports a one month history of progressive shortness of breath and pain in the left chest and upper back which lead her to come to the hospital. Initial CT shows a VERY large heterogenous mass in the left chest which was associated with large volume pleural fluid which basically compressed the entire the lung. She felt better after thoracentesis which removed 1200 cc of fluid, and cytology was negative. 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 IHCs are pending to confirm the diagnosis and type of sarcoma. The patient current feels better, has less pain and is not short of breath, able to walk on alicia. CT staging also shows a mass associated with the esophagus. Constitutional: diaphoresis, improved, no complaints, other, requiring IVF, requiring O2, No chills, No febrile, No poor po Eyes: no complaints, No discharge, No other, No pain, No redness, No visual change ENT: no complaints, No bleeding, No congestion, No discharge, No dysphagia, No other, No pain, No sore throat Respiratory: cough, no complaints, pain, pleuritic pain, shortness of breath Cardiovascular: no complaints, other, No chest pain, No edema, No lightheadedness, No orthopenea, No palpitations, No paroxysmal nocturnal dyspnea Gastrointestinal: no complaints, other, No blood, No constipation, No decreased appetite, No diarrhea, No flatus, No nausea, No pain, No passing stool, No vomiting Genitourinary: no complaints, other, No bleeding, No discharge, No dysuria, No flank pain, No hematuria Musculoskeletal: back pain, No bone/joint pain, No neck pain, No no complaints, No restricted range of motion, No swelling Skin: no complaints Neurologic: confusion, dizziness, focal-weakness, headache, no complaints, seizure, syncope Endocrine: no complaints Lymphatic: No adenopathy, No lymphadema, No no complaints, No other, No tender nodes Psychological: no complaints Past Medical History Medical History: other (Sarcoma of the left arm.) Past Surgical History Past Surgical Hx: other (Resection of right forearm mass.) Family History Significant Family History: no pertinent family hx Social History Alcohol Use: none Smoking Status: Current some day smoker (1 cigarette every other day. ) Drug Use: none Exam/Review of Systems Vital Signs Vitals Vital Signs Date Time Temp Pulse Resp B/P Pulse Ox O2 Delivery O2 Flow Rate FiO2 12/14/16 14:00 98.0 100 18 124/70 98 12/14/16 13:52 21 12/13/16 01:45 Room Air 12/11/16 09:00 2.0 Intake and Output 12/13/16 12/13/16 12/14/16 15:00 23:00 07:00 Intake Total 620 ml 950 ml Balance 620 ml 950 ml Exam Constitutional: alert, oriented, well developed Psych: anxiety, confusion Head: atraumatic, normocephalic Eyes: EOMI, PERRL, nl conjunctiva, nl lids, nl sclera ENMT: mucosa pink and moist, nl external ears & nose, nl lips & teeth, nl nasal mucosa & septum Neck: non-tender, supple Respiratory: diminished breath sounds (Left lung) Cardiovascular: nl pulses, regular rate and rhythm Gastrointestinal: nl liver, spleen, non-tender, soft Musculoskeletal: nl extremities to inspection, nl gait and stance Extremities: normal pulses Neurological: REVENUE SETTLEMENTS ADMINISTRATOR II-XII intact, nl mental status, nl speech, nl strength Skin: nl turgor, No rash or lesions Lymph: nl lymph nodes Results Result Diagram: 12/13/1651912/13/16519 Medications Medications Current Medications Ondansetron HCl (Zofran Inj) 4 mg Q6H PRN IV NAUSEA AND/OR VOMITING Last administered on 12/11/16 15:03; Admin Dose 4 MG; Start 12/06/16 at 23:00 Acetaminophen (Tylenol Tab) 650 mg Q6H PRN PO PAIN LEVEL 1-3 OR FEVER Last administered on 12/08/16 20:10; Admin Dose 650 MG; Start 12/06/16 at 23:00 Morphine Sulfate (morphine) 2 mg Q4H PRN IV pain Last administered on 06:21; Admin Dose 2 MG; Start 12/08/16 at 15:30 Guaifenesin (Robitussin Liquid Cup) 200 mg Q4H PRN PO COUGH Last administered on 12/09/16 16:41; Admin Dose 200 MG; Start 12/09/16 at 16:30 Phenol 1 lozenge 1 lozenge Q1H PRN MT COUGH; Start 12/09/16 at 16:30 Sodium Chloride (NS) 1,000 ml @ 100 mls/hr Q10H IV Last administered on 14:45; Admin Dose 100 MLS/HR; Start 12/14/16 at 00:30; Stop 12/15/16 at 00:29 ISIDRO ROBERTS MD Dec 14, 2016 16:48
[2016-12-14 20:00] VITALS: BP 121/68; RESP 20
[2016-12-15] MEDS: morphine 2 MG INJ IV PRN ×3 (00:31→11:03)
[2016-12-15 02:00] VITALS: BP_SYST 93; BP_SYST 99; BP_DIAS 52; BP_DIAS 56; PULSE 100; RESP 19; RESP 20
[2016-12-15 06:22] LABS: BASOPHIL # 0.1 10^3/ul (0.0-0.1); BASOPHILS % 0.5 % (0.0-2.0); EOSINOPHILS # 0.7 10^3/ul (0.0-0.5); EOSINOPHILS % 6.2 % (0.0-7.0); HEMATOCRIT 34.7 % (37.0-47.0); HEMOGLOBIN 11.4 g/dl (12.0-16.0); LYMPHOCYTES # 2.9 10^3/ul (0.8-2.9); LYMPHOCYTES % 26.2 % (15.0-51.0); MEAN CORPUSCULAR HEMOGLOBIN 28.3 pg (29.0-33.0); MEAN CORPUSCULAR HGB CONC 32.9 g/dl (32.0-37.0); MEAN CORPUSCULAR VOLUME 86.1 fl (82.0-101.0); MONOCYTES % 9.1 % (0.0-11.0); NEUTROPHIL # 6.4 10^3/ul (1.6-7.5); NEUTROPHILS % 57.6 % (39.0-77.0); PLATELET COUNT 410 10^3/UL (140-415); RED BLOOD COUNT 4.03 10^6/ul (4.20-5.40); RED CELL DISTRIBUTION WIDTH 13.8 % (11.5-14.5)
[2016-12-15 07:33] VITALS: BP 100/62; RESP 18
[2016-12-15 08:49] LABS: CALCIUM 8.7 mg/dl (8.4-10.2); CREATININE 0.56 mg/dl (0.44-1.00); POTASSIUM 4.2 mmol/L (3.5-5.1)
--- NOTE | 2016-12-15 12:06 | PN ---
Date/Time of Note Date/Time of Note DATE: 12/15/16 TIME: 12:04 Assessment/Plan VTE Prophylaxis VTE Prophylaxis Intervention: SCD's Lines/Catheters IV [facility]from [facility] Saline Lock Urinary Cath still in place: No Assessment/Plan Chief Complaint/Hosp Course Assessment/Plan: 1. Left lung mass. 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 We will see for plan for possible chemotherapy while in- house. 2. pleural effusion. S/p thoracentesis. monitor chest imaging. 3. hx asthma. no active issue at this time. bronchodilators as needed Dispo/Plan: Oncologist following. Follow-up with planned if need for possible chemotherapy while in-house. DC when medically stable and cleared by salesforce consultant Discussed plan of care wit Dr. Russell Problems: Subjective 24 Hr Interval Summary Free Text/Dictation no s/s of distress Exam/Review of Systems Vital Signs Vitals Vital Signs Date Time Temp Pulse Resp B/P Pulse Ox O2 Delivery O2 Flow Rate FiO2 12/15/16 07:33 98.4 80 18 100/62 95 12/15/16 02:00 Room Air 12/14/16 23:12 21 12/11/16 09:00 2.0 Intake and Output 12/14/16 12/14/16 12/15/16 15:00 23:00 07:00 Intake Total 550 ml 1260 ml 1260 ml Balance 550 ml 1260 ml 1260 ml Exam Constitutional: alert, oriented Psych: no complaints Head: normocephalic Eyes: nl conjunctiva Neck: supple Respiratory: clear to auscultation, normal air movement Cardiovascular: regular rate and rhythm Gastrointestinal: non-tender, soft Musculoskeletal: nl extremities to inspection Neurological: POLICY ISSUE CLERK II-XII intact, nl mental status, nl speech Results Result Diagram: 12/15/16 0520 12/15/16 0520 Results 24 hrs Laboratory Tests Test 12/15/16 05:20 White Blood Count 11.0 H Red Blood Count 4.03 L Hemoglobin 11.4 L Hematocrit 34.7 L Mean Corpuscular Volume 86.1 Mean Corpuscular Hemoglobin 28.3 L Mean Corpuscular Hemoglobin Concent 32.9 Red Cell Distribution Width 13.8 Platelet Count 410 Mean Platelet Volume 10.0 Neutrophils % 57.6 Lymphocytes % 26.2 Monocytes % 9.1 Eosinophils % 6.2 Basophils % 0.5 Nucleated Red Blood Cells % 0.0 Neutrophils # 6.4 Lymphocytes # 2.9 Monocytes # 1.0 H Eosinophils # 0.7 H Basophils # 0.1 Nucleated Red Blood Cells # 0.0 Sodium Level 140 Potassium Level 4.2 Chloride Level 106 Carbon Dioxide Level 24 Anion Gap 14 Blood Urea Nitrogen 10 Creatinine 0.56 Glucose Level 97 Calcium Level 8.7 Medications Medications Current Medications Ondansetron HCl (Zofran Inj) 4 mg Q6H PRN IV NAUSEA AND/OR VOMITING Last administered on 12/11/16 15:03; Admin Dose 4 MG; Start 12/06/16 at 23:00 Acetaminophen (Tylenol Tab) 650 mg Q6H PRN PO PAIN LEVEL 1-3 OR FEVER Last administered on 12/08/16 20:10; Admin Dose 650 MG; Start 12/06/16 at 23:00 Morphine Sulfate (morphine) 2 mg Q4H PRN IV pain Last administered on 11:03; Admin Dose 2 MG; Start 12/08/16 at 15:30 Guaifenesin (Robitussin Liquid Cup) 200 mg Q4H PRN PO COUGH Last administered on 12/09/16 16:41; Admin Dose 200 MG; Start 12/09/16 at 16:30 Phenol (Cepastat Lozenge) 1 lozenge Q1H PRN MT COUGH; Start 12/09/16 at 16:30 ERIN CONTRERAS Dec 15, 2016 12:06
[2016-12-15 14:00] VITALS: BP 121/61; RESP 19
[2016-12-15] MEDS: ALBUTEROL/IPRATROPIUM (NEB) 3 ML AMP HHN PRN ×2 (16:20→22:21)
[2016-12-15 20:00] VITALS: BP 123/66; RESP 18
[2016-12-16] MEDS: morphine 2 MG INJ IV PRN ×2 (01:37→05:59)
[2016-12-16 02:00] VITALS: BP 95/51; RESP 17
[2016-12-16 05:41] LABS: BASOPHIL # 0.1 10^3/ul (0.0-0.1); BASOPHILS % 0.7 % (0.0-2.0); EOSINOPHILS # 0.5 10^3/ul (0.0-0.5); HEMATOCRIT 36.2 % (37.0-47.0); HEMOGLOBIN 11.8 g/dl (12.0-16.0); LYMPHOCYTES # 2.6 10^3/ul (0.8-2.9); LYMPHOCYTES % 23.4 % (15.0-51.0); MEAN CORPUSCULAR HEMOGLOBIN 27.8 pg (29.0-33.0); MEAN CORPUSCULAR HGB CONC 32.6 g/dl (32.0-37.0); MEAN CORPUSCULAR VOLUME 85.2 fl (82.0-101.0); MEAN PLATELET VOLUME 9.9 fl (7.4-10.4); MONOCYTE # 0.9 10^3/ul (0.3-0.9); MONOCYTES % 8.3 % (0.0-11.0); NEUTROPHIL # 6.8 10^3/ul (1.6-7.5); NEUTROPHILS % 62.2 % (39.0-77.0); PLATELET COUNT 442 10^3/UL (140-415); RED BLOOD COUNT 4.25 10^6/ul (4.20-5.40); RED CELL DISTRIBUTION WIDTH 13.8 % (11.5-14.5); WHITE BLOOD COUNT 10.9 10^3/ul (4.8-10.8)
[2016-12-16 06:03] VITALS: BP 100/55; PULSE 88; RESP 18
[2016-12-16 06:21] LABS: CALCIUM 9.3 mg/dl (8.4-10.2); CREATININE 0.59 mg/dl (0.44-1.00); POTASSIUM 4.1 mmol/L (3.5-5.1)
[2016-12-16 08:00] VITALS: BP 101/72; RESP 18
[2016-12-16] MEDS: ALBUTEROL/IPRATROPIUM (NEB) 3 ML AMP HHN PRN (13:57)
[2016-12-16 14:00] VITALS: BP 105/60; RESP 18
--- NOTE | 2016-12-16 17:02 | PN ---
Date/Time of Note Date/Time of Note DATE: 12/16/16 TIME: 17:01 Assessment/Plan VTE Prophylaxis VTE Prophylaxis Intervention: ambulation Lines/Catheters [facility] Saline Lock Urinary Cath still in place: No Assessment/Plan Chief Complaint/Hosp Course 1. Left-sided lung mass with associated left pleural effusion. Status post thoracentesis on 12/08/2016 with drainage of 1200 cc of serosanguineous fluid. Although, the fluid cytology is negative for any malignant cells, there is high suspicion for sarcoma because of spindle-shaped cells. The patient being followed by oncology and pulmonology. 2. Left-sided pleural effusion. Status post thoracentesis. 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 Being followed by pulmonology. 3. Asthma. No evidence of any exacerbation. 4. Fluids, electrolytes, and nutrition. Regular diet. 5. DVT prophylaxis. Ambulation. 6. Plan. Await further recommendations from oncology. Case discussed with Dr. Dunlap. Plan of care was explained to the patient with the help of a certified soyfreeze operator. Problems: Subjective 24 Hr Interval Summary Free Text/Dictation Denies any pain. Denies any dyspnea. Exam/Review of Systems Vital Signs Vitals Vital Signs Date Time Temp Pulse Resp B/P Pulse Ox O2 Delivery O2 Flow Rate FiO2 12/16/16 14:00 98.2 100 18 105/60 100 12/16/16 13:50 Nasal Cannula 2.0 12/15/16 22:23 21 Intake and Output 12/15/16 12/15/16 12/16/16 15:00 23:00 07:00 Intake Total 820 ml 540 ml Balance 820 ml 540 ml Exam General: Adequately build 41 year-old female lying in bed in no apparent distress. HEENT: Normocephalic, atraumatic. Eyes: Anicteric sclerae, conjunctivae clear. ENT: Nasal septum midline, oral mucosa moist. Neck supple, no JVD noticed. Respiratory: Diminished breath sounds. No use of accessory muscles of respiration. No adventitious breath sounds. Cardiovascular: S1, S2 heard. No murmurs or gallops. Abdomen: Soft, nontender, and nondistended. Bowel sounds positive in all 4 quadrants. Genitourinary: Deferred. Extremities: No cyanosis, no clubbing, no edema. Peripheral pulses palpable. Neurologic: Cranial nerves II through XII grossly intact. The patient is awake, alert, and oriented. Skin: Normal skin turgor. No skin rashes. Results Result Diagram: 12/16/169 12/16/16408 Results 24 hrs Laboratory Tests Test 12/16/16 04:09 12/16/16 07:26 12/16/16 07:27 White Blood Count 10.9 H Red Blood Count 4.25 Hemoglobin 11.8 L Hematocrit 36.2 L Mean Corpuscular Volume 85.2 Mean Corpuscular Hemoglobin 27.8 L Mean Corpuscular Hemoglobin Concent 32.6 Red Cell Distribution Width 13.8 Platelet Count 442 H Mean Platelet Volume 9.9 Neutrophils % 62.2 Lymphocytes % 23.4 Monocytes % 8.3 Eosinophils % 5.0 Basophils % 0.7 Nucleated Red Blood Cells % 0.0 Neutrophils # 6.8 Lymphocytes # 2.6 Monocytes # 0.9 Eosinophils # 0.5 Basophils # 0.1 Nucleated Red Blood Cells # 0.0 Sodium Level 141 Potassium Level 4.1 Chloride Level 104 Carbon Dioxide Level 26 Anion Gap 15 Blood Urea Nitrogen 11 Creatinine 0.59 Glucose Level 89 Calcium Level 9.3 Lab Scanned Report REFERENCE LAB REFERENCE LAB Medications Medications Current Medications Ondansetron HCl (Zofran Inj) 4 mg Q6H PRN IV NAUSEA AND/OR VOMITING Last administered on 12/11/16 15:03; Admin Dose 4 MG; Start 12/06/16 at 23:00 Acetaminophen (Tylenol Tab) 650 mg Q6H PRN PO PAIN LEVEL 1-3 OR FEVER Last administered on 12/08/16 20:10; Admin Dose 650 MG; Start 12/06/16 at 23:00 Morphine Sulfate (morphine) 2 mg Q4H PRN IV pain Last administered on 05:59; Admin Dose 2 MG; Start 12/08/16 at 15:30 Guaifenesin (Robitussin Liquid Cup) 200 mg Q4H PRN PO COUGH Last administered on 12/09/16 16:41; Admin Dose 200 MG; Start 12/09/16 at 16:30 Phenol (Cepastat Lozenge) 1 lozenge Q1H PRN MT COUGH; Start 12/09/16 at 16:30 GENIA CANDELARIO NP Dec 16, 2016 17:02
[2016-12-16 20:37] VITALS: BP 88/50; RESP 18
[2016-12-16 22:48] VITALS: BP 98/68; PULSE 99
[2016-12-17] VITALS (9 sets, daily range): BP systolic 90–109; BP diastolic 50–66; PULSE 89–90; RESP 16–20
[2016-12-17] MEDS: morphine 2 MG INJ IV PRN ×2 (01:38→17:17)
--- NOTE | 2016-12-17 07:12 | PN ---
DATE: 12/16/2016 MEDICAL ONCOLOGY PROGRESS NOTE SUBJECTIVE: Patient states she is feeling well. Does have some shortness of breath and pleuritic c hest pain. No hemoptysis. The patient also states appetite is decreased. OBJECTIVE: GENERAL: The patient is a well-developed, well-nourished female who is in no acute distress. VITAL SIGNS: Temperature 98.2, pulse 100, respirations 18, blood pressure 105/60 and pulse oximetry is 100% on room air. SKIN: No ecchymoses, no petechiae or rashes. HEENT: No mucosal lesions. No scleral icterus. The patient is normocephalic. Pupils are equal, r ound, react to light and accommodation. NECK: Supple. No jugular venous distention or thyroid enlargement. CHEST: Decreased breath sounds in the left base. There are no rubs. NODES: No palpable adenopathy. HEART: Sinus tachycardia. No S3, S4 or murmurs. No rubs. ABDOMEN: Soft. No masses, no ascites. Bowel sounds are active. EXTREMITIES: Good range of motion. No clubbing, edema or cyanosis. No palpable cords or Homans si gn. There is surgical loss of muscle in the right forearm. NEUROLOGIC: Within normal limits. 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 PLAN: I have discussed the situation with the patient. I have explained to her that at this time, this is not a resectable metastasis. The patient is therefore a candidate for cytotoxic therapy. The patient's performance status is excellent and she has had an echocardiogram which demonstrates a left ventricular ejection fraction of 70%. The patient therefore is a candidate for anthracycline therapy, such as Adriamycin. This could be c ombined with an immunologic agent, olaratumab (Lartruvo). I have discussed the situation with the patient and her daughter has provided translation. It is pr oposed that the patient would receive 8 cycles of that combination. After completion of 8 cycles, t he Lartruvo would be continued until there was no further improvement or intolerable toxicity. I have discussed the potential toxicities with the patient, which include nausea, vomiting, bone mar row suppression, mucositis and hair loss. Also, Adriamycin is associated with cardiotoxicity. The Adriamycin also is a sclerosing agent and therefore I feel that some type of venous access devic e would be beneficial for this patient. She is willing to proceed with a Port-A-Cath placement. I have taken the liberty of requesting the placement of the tunneled catheter on 12/17/2016. Followin g this procedure, the patient can be discharged and all future therapy can be administered as an out patient. Dictated By: CHELE WOODRUFF MD SR/NTS Conf#: [id number] DID#: [id number] CC: ROSA ELENA LOPEZ;*End*
[2016-12-17 07:42] LABS: BASOPHIL # 0.1 10^3/ul (0.0-0.1); BASOPHILS % 0.8 % (0.0-2.0); EOSINOPHILS # 0.5 10^3/ul (0.0-0.5); EOSINOPHILS % 4.7 % (0.0-7.0); HEMATOCRIT 36.3 % (37.0-47.0); HEMOGLOBIN 11.8 g/dl (12.0-16.0); LYMPHOCYTES % 26.8 % (15.0-51.0); MEAN CORPUSCULAR HEMOGLOBIN 27.8 pg (29.0-33.0); MEAN CORPUSCULAR HGB CONC 32.5 g/dl (32.0-37.0); MEAN CORPUSCULAR VOLUME 85.4 fl (82.0-101.0); MEAN PLATELET VOLUME 10.1 fl (7.4-10.4); NEUTROPHIL # 6.6 10^3/ul (1.6-7.5); NEUTROPHILS % 58.3 % (39.0-77.0); PLATELET COUNT 417 10^3/UL (140-415); RED BLOOD COUNT 4.25 10^6/ul (4.20-5.40); RED CELL DISTRIBUTION WIDTH 14.1 % (11.5-14.5); WHITE BLOOD COUNT 11.3 10^3/ul (4.8-10.8)
[2016-12-17 07:55] LABS: INR 1.17; PT RATIO 1.2
[2016-12-17 07:56] LABS: PARTIAL THROMBOPLASTIN TIME 34.9 Sec (25.0-35.0)
[2016-12-17 07:59] LABS: CALCIUM 9.1 mg/dl (8.4-10.2); CREATININE 0.61 mg/dl (0.44-1.00); POTASSIUM 4.1 mmol/L (3.5-5.1)
[2016-12-17] MEDS ORDERED: LIDOCAINE 1%/EPI 30 ML INJ ONE (09:37)
[2016-12-17] MEDS ORDERED: HEPARIN 1000 UNITS/ML 10 ML INJ ONE (09:37)
[2016-12-17] MEDS ORDERED: CEFAZOLIN 1 GM/50 ML (PMX) 50 ML IVPB ONE (13:27)
[2016-12-17] MEDS ORDERED: MIDAZOLAM 1 MG/ML 2 ML INJ ONE (13:28)
[2016-12-17] MEDS ORDERED: FENTAnyl 50 MCG/ML VIAL ONE (13:28)
--- NOTE | 2016-12-17 13:59 | PN ---
Date/Time of Note Date/Time of Note DATE: 12/17/16 TIME: 13:57 Assessment/Plan VTE Prophylaxis VTE Prophylaxis Intervention: ambulation Lines/Catheters IV [facility] Saline Lock Urinary Cath still in place: No Assessment/Plan Chief Complaint/Hosp Course 1. Left-sided lung mass with associated left pleural effusion. Status post thoracentesis on 12/08/2016 with drainage of 1200 cc of serosanguineous fluid. S/ P CT-guided core biopsy on 12/10/2016. Cytology positive for malignant spindle cell neoplasm consistent with metastatic sarcoma. Plan for chemotherapy. 2. Left-sided pleural effusion. Status post thoracentesis. Being followed by pulmonology. 3. Asthma. No evidence of any exacerbation. 4. Fluids, electrolytes, and nutrition. Regular diet. 5. DVT prophylaxis. Ambulation. 6. Plan. To be discharged home after insertion of a tunneled catheter. Case discussed with Dr. Dunlap. Problems: Subjective 24 Hr Interval Summary Free Text/Dictation Plan for chemo access placement today. Exam/Review of Systems Vital Signs Vitals Vital Signs Date Time Temp Pulse Resp B/P Pulse Ox O2 Delivery O2 Flow Rate FiO2 12/17/16 07:46 98.0 96 16 92/55 97 12/17/16 00:03 21 12/16/16 13:50 Nasal Cannula 2.0 Intake and Output 12/16/16 12/16/16 12/17/16 15:00 23:00 07:00 Intake Total 1100 ml 720 ml Balance 1100 ml 720 ml Exam General: Adequately build 41 year-old female lying in bed in no apparent distress. HEENT: Normocephalic, atraumatic. Eyes: Anicteric sclerae, conjunctivae clear. ENT: Nasal septum midline, oral mucosa moist. Neck supple, no JVD noticed. Respiratory: Diminished breath sounds. No use of accessory muscles of respiration. No adventitious breath sounds. Cardiovascular: S1, S2 heard. No murmurs or gallops. Abdomen: Soft, nontender, and nondistended. Bowel sounds positive in all 4 quadrants. Genitourinary: Deferred. Extremities: No cyanosis, no clubbing, no edema. Peripheral pulses palpable. Neurologic: Cranial nerves II through XII grossly intact. The patient is awake, alert, and oriented. Skin: Normal skin turgor. No skin rashes. Results Result Diagram: 12/17/16 0605 12/17/16 0605 Results 24 hrs Laboratory Tests Test 12/17/16 06:05 White Blood Count 11.3 H Red Blood Count 4.25 Hemoglobin 11.8 L Hematocrit 36.3 L Mean Corpuscular Volume 85.4 Mean Corpuscular Hemoglobin 27.8 L Mean Corpuscular Hemoglobin Concent 32.5 Red Cell Distribution Width 14.1 Platelet Count 417 H Mean Platelet Volume 10.1 Neutrophils % 58.3 Lymphocytes % 26.8 Monocytes % 9.0 Eosinophils % 4.7 Basophils % 0.8 Nucleated Red Blood Cells % 0.0 Neutrophils # 6.6 Lymphocytes # 3.0 H Monocytes # 1.0 H Eosinophils # 0.5 Basophils # 0.1 Nucleated Red Blood Cells # 0.0 Prothrombin Time 15.0 H Prothrombin Time Ratio 1.2 INR International Normalized Ratio 1.17 Activated Partial Thromboplast Time 34.9 Sodium Level 140 Potassium Level 4.1 Chloride Level 106 Carbon Dioxide Level 25 Anion Gap 13 Blood Urea Nitrogen 12 Creatinine 0.61 Glucose Level 95 Calcium Level 9.1 Medications Medications Current Medications Ondansetron HCl (Zofran Inj) 4 mg Q6H PRN IV NAUSEA AND/OR VOMITING Last administered on 12/11/16 15:03; Admin Dose 4 MG; Start 12/06/16 at 23:00 Acetaminophen (Tylenol Tab) 650 mg Q6H PRN PO PAIN LEVEL 1-3 OR FEVER Last administered on 12/08/16 20:10; Admin Dose 650 MG; Start 12/06/16 at 23:00 Morphine Sulfate (morphine) 2 mg Q4H PRN IV pain Last administered on 01:38; Admin Dose 2 MG; Start 12/08/16 at 15:30 Guaifenesin (Robitussin Liquid Cup) 200 mg Q4H PRN PO COUGH Last administered on 12/09/16 16:41; Admin Dose 200 MG; Start 12/09/16 at 16:30 Phenol (Cepastat Lozenge) 1 lozenge Q1H PRN MT COUGH; Start 12/09/16 at 16:30 GENIA CANDELARIO NP Dec 17, 2016 13:59
--- NOTE | 2016-12-17 14:41 | RADRPT ---
PROCEDURE: RIGHT INTERNAL JUGULAR PORT PLACEMENT CLINICAL INDICATION: Metastatic sarcoma TECHNIQUE: Versed and Fentanyl were administered by the radiology nurse who monitored the patient. Ancef one gram intravenously was also administered preoperatively. Fluoroscopy time: 0.1 min Number of images/cine sequences: 1 Informed consent was obtained following careful explanations of the risks and benefits of the proced ure. Preliminary ultrasound was obtained and demonstrates a widely patent right internal jugular vei n. Cap, mask, sterile gown, sterile gloves, large sterile sheath, hand hygiene with 2% chlorhexidine was utilized. The patients right chest and neck were prepped and draped in the usual sterile fashion. 1% lidocain e was utilized. The right internal jugular vein was punctured with a micropuncture needle under dire ct ultrasound guidance and a guide wire was advanced into the central veins as confirmed by fluorosc opy. The needle was exchanged for an introducer. A recorded ultrasound image was obtained. A site in the patients chest wall was selected and 1% lidocaine with epinephrine was administered t o the skin. Utilizing a #15 blade, an incision was made and a pocket was created utilizing blunt dis section with a Bibi clamp. The pocket was irrigated with normal saline. The catheter of the port was then tunneled retrograde from the pocket towards the puncture site in t he patients neck. A guidewire was advanced through the introducer in the patients neck and the int roducer was exchanged over the wire for a #7 Azerbaijani sheath, which was placed in the right internal j ugular vein. The catheter was advanced through the peel-away sheath and the sheath was removed. The tip of the catheter was placed in the mid right atrium. The proximal end of the catheter was then cu t to the appropriate length and connected to the port. The port was placed inside the pocket. It flu shed and aspirated well. A photo spot image confirms proper positioning of the catheter tip in the upper right atrium. The incision in the patients chest was closed with interrupted subcutaneous 2-0 Vicryl sutures. The incision in the neck was closed with a subcuticular 4-0 Vicryl suture. Dermabond was applied to bot h incisions and Steri-Strips were also applied. The port was accessed and flushed with heparinized saline. A sterile dressing was applied. The patient tolerated the procedure well COMPARISON: none FINDINGS: as above. RPTAT: AA IMPRESSION: 1. Uncomplicated placement of an #6.6 Azerbaijani single lumen Power Injectable Port in the right interna l jugular vein with its tip overlying the upper right atrium region. 2. The catheter is ready for use. .Hernán Taveras MD, Date Time Electronically viewed and signed by .Hernán Taveras MD, on 12/17/2016 14:41 .S/
--- NOTE | 2016-12-17 22:19 | PN ---
DATE: 12/17/2016 SUBJECTIVE: The patient is feeling well. She did have a Port-A-Cath placed in the right internal j ugular today and is experiencing some pain in the area of the incisions. The patient does not have any other chest pain or shortness of breath. OBJECTIVE: GENERAL: The patient is a well-developed, well-nourished female in no acute distress. VITAL SIGNS: Temperature 97.7, pulse 98, respirations 18 per minute and regular, blood pressure 109 /66 and pulse oximetry 97% on room air. SKIN: No ecchymosis, no petechiae or rashes. HEENT: No mucosal lesions. No scleral icterus. NECK: Supple. No jugular venous distention or thyroid enlargement. No carotid bruits. CHEST: Reveals decreased breath sounds on the left side. There are no rhonchi, wheezes, rales or r ubs. HEART: Regular sinus rhythm. No S3, S4 or murmurs. No rubs. NODES: No palpable lymphadenopathy. ABDOMEN: Soft. No masses, no ascites. Bowel sounds are active. EXTREMITIES: Good range of motion. No clubbing, no edema or cyanosis. No palpable cords or Homans ' sign. There is no edema of the right arm on which side the patient has had a Port-A-Cath placemen t. PATHOLOGY: Final pathology report on the biopsy obtained on 12/10/2016 is consistent with a synovia l sarcoma. ASSESSMENT: Recurrent synovial sarcoma. DISCUSSION: As previously noted, the patient is a candidate for chemotherapy. Given the findings c onsistent with a synovial sarcoma, the previously described treatment using the combination of doxor ubicin and olaratumab (Lartruvo) is the appropriate combination. I have discussed the situation with the patient and her daughters. All therapy can be administered as an outpatient. I do feel the patient can be discharged from the hospital and we will [facility]. Dictated By: CHELE WOODRUFF MD, SR/ROBIN Conf#: [id number] DID#: [id number]
[2016-12-17] MEDS: ALBUTEROL/IPRATROPIUM (NEB) 3 ML AMP HHN PRN ×2 (22:33)
[2016-12-18] MEDS: morphine 2 MG INJ IV PRN ×2 (01:30→06:05)
[2016-12-18 02:42] VITALS: BP 95/56; RESP 18
[2016-12-18 05:23] LABS: BASOPHIL # 0.1 10^3/ul (0.0-0.1); BASOPHILS % 0.7 % (0.0-2.0); EOSINOPHILS # 0.5 10^3/ul (0.0-0.5); EOSINOPHILS % 4.3 % (0.0-7.0); HEMATOCRIT 37.5 % (37.0-47.0); HEMOGLOBIN 12.4 g/dl (12.0-16.0); LYMPHOCYTES # 3.1 10^3/ul (0.8-2.9); LYMPHOCYTES % 27.4 % (15.0-51.0); MEAN CORPUSCULAR HEMOGLOBIN 28.2 pg (29.0-33.0); MEAN CORPUSCULAR HGB CONC 33.1 g/dl (32.0-37.0); MEAN CORPUSCULAR VOLUME 85.2 fl (82.0-101.0); MEAN PLATELET VOLUME 9.5 fl (7.4-10.4); MONOCYTE # 0.8 10^3/ul (0.3-0.9); NEUTROPHIL # 6.8 10^3/ul (1.6-7.5); NEUTROPHILS % 60.2 % (39.0-77.0); PLATELET COUNT 427 10^3/UL (140-415); WHITE BLOOD COUNT 11.3 10^3/ul (4.8-10.8)
[2016-12-18 06:21] LABS: CALCIUM 9.2 mg/dl (8.4-10.2); CREATININE 0.61 mg/dl (0.44-1.00); POTASSIUM 4.2 mmol/L (3.5-5.1)
[2016-12-18 07:41] VITALS: BP 105/57; RESP 16
[2016-12-18] MEDS: ALBUTEROL/IPRATROPIUM (NEB) 3 ML AMP HHN PRN ×2 (12:58→20:40)
[2016-12-18] MEDS: NACL 0.9% 3 ML SYG IV SCH (13:18)
[2016-12-18] MEDS: GUAIFENESIN 20 MG/ML 5ML CUP PO PRN (13:18)
--- NOTE | 2016-12-18 13:33 | RADRPT ---
PROCEDURE: XR Chest. CLINICAL INDICATION: Shortness of breath TECHNIQUE: Single portable view of the chest was obtained COMPARISON: December 12, 2016 FINDINGS: The trachea is midline. The cardiac silhouette and pulmonary vascularity are within normal limits. T here is a large left lower lobe opacification and small left-sided pleural effusion. A right-sided M ediPort noted with distal tip in the SVC. The costophrenic angles are sharp. IMPRESSION: 1. Large left lower lobe opacification and small left-sided pleural effusion. Cannot exclude underly ing mass. Findings are unchanged since prior exam. 2. Unchanged right-sided MediPort RPTAT: AAPP Physician Nora Date Time Electronically viewed and signed by Physician Nora on 12/18/2016 13:33 ZOË/
[2016-12-18] MEDS ORDERED: ALBU8.5H3 INH (13:59)
[2016-12-18] MEDS ORDERED: HYDR-906 PO (13:59)
[2016-12-18 14:00] VITALS: BP 102/57; RESP 18
--- NOTE | 2016-12-18 14:01 | PDOCDIS ---
Discharge Instructions DIAGNOSIS Discharge Diagnosis Lung tumor. CONDITION Patient Condition: Stable HOME CARE INSTRUCTIONS: Special Diet: Regular FOLLOW UP/APPOINTMENTS Follow-up Plan Perfecto Mathew MD Specialty Oncology, Hematology Office Address [address] [place], [place] [id number] Office OTHER ORDERS: Other Orders: 1. Follow-up with oncology [Dr. Mathew] in 1 week. 2. Take pain medications as needed. 3. Take a regular diet. 4. Resume activities as tolerated. GENIA CANDELARIO NP Dec 18, 2016 14:01
--- NOTE | 2016-12-18 16:28 | DS ---
Date/Time of Note Date/Time of Note DATE: 12/18/16 TIME: 16:23 Discharge Summary Admission/Discharge Info Admit Date/Time Dec 06, 2016 at 20:27 Discharge Date/Time Discharge Diagnosis 1. 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 2. 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 3. Asthma [History]. Patient Condition: Stable Consults 1. Hansel Dietrich MD, Pulmonology. 2. Perfecto Mathew MD, Oncology. Procedures CT-guided left lung mass biopsy on 12/10/2016. Chest CT IMPRESSION: 1. Nearly 17 cm heterogeneously enhancing mass with central necrosis in the left lung base which occupies the entire left lower thoracic cavity and causes mild displacement of mediastinal structures to the right side. The mass displaces normal lung parenchyma superiorly, suggesting a mass is extrinsic to the left lower lobe. The findings suggest malignancy. Differential diagnosis includes metastasis and primary lung neoplasm. Correlation with cytology from thoracentesis performed earlier the same day is suggested for diagnosis. 2. 3.7 cm heterogeneously enhancing mass in the azygo-esophageal recess of right lower lobe, abutting the esophagus. Differential diagnosis includes metastasis, lung neoplasm and esophageal neoplasm, favoring metastasis. 3. Moderate size left pleural effusion, likely malignant. Correlation with cytology from thoracentesis performed earlier the same day is suggested. 4. 2 cm fat containing nodule in the right adnexa, suggesting dermoid. 5. Satisfactory position of IUD. 6. Previous cholecystectomy. Hx of Present Illness CC: SOB x 1 month getting worse This is a 41 year old female with past medical history of asthma and Skin sarcoma who was transferred from [facility] for SOB x 1 month. She also reported left shoulder and pleuritic pain for 1 year duration. She denied any fevers or chest pain, but did report pleuritic pain on respiration. She had an oxygen saturation of 96% on RA upon arrival to her room at [facility]. She denied any weight loss. Hospital Course Patient underwent a CT scan of the chest that showed near complete opacification of the thorax with a small amount of aerated left upper lung. Findings were suggestive of possible masses within the left lung. The patient subsequently underwent a CT scan of the chest, abdomen, and pelvis with contrast that showed continuously enhancing hypervascular mass in the left lung base measuring approximately 17 cm at the longest dimension. The CT also revealed heterogeneously enhancing hypervascular mass in the azygo-esophageal recess of the right lower lung zone. Pulmonology and oncology consult was obtained. The patient underwent a CT-guided needle biopsy of the left lung mass on 12/10/2016. 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 Because of the new diagnosis of sarcoma, the patient had a tunneled access inserted by radiology for initiation of chemotherapy. However, the patient's chemotherapy will be initiated as outpatient. The patient had left-sided pleural effusion. The patient underwent a left- sided thoracentesis on 12/08/2016 with drainage of 200 cc of serosanguineous fluid. The patient's pleural fluid study was negative for any malignant cells although it did reveal some subtle spindle shaped cells with high suspicion for sarcoma. The patient's respiratory distress was almost completely resolved after the thoracentesis. The patient also has history of asthma. She had no evidence of any exacerbation of asthma during the current hospitalization. The patient had a relatively long hospital course because of the time required for thoracentesis followed by core biopsy and also the thoracentesis that did not reveal any malignant cells. The patient is stable to be discharged home to be followed up with outpatient oncology for initiation of chemotherapy. The patient was cleared by oncology to be discharged home. Discharge Instructions 1. Follow-up with oncology [Dr. Mathew] in 1 week. 2. Take pain medications as needed. 3. Take a regular diet. 4. Resume activities as tolerated. The patient verbalized understanding of her discharge instructions. At this time I would like to thank all the consultants for seeing the patient and providing clinical recommendations. Case discussed with Dr. Dunlap. Home Meds Active Scripts Albuterol Sulfate* (Proair HFA*) 8.5 Gm Hfa.aer.ad, 2 PUFF INH Q6, #1 INHALER Prov:GENIA CANDELARIO NP 12/18/16 Hydrocodone/Acetaminophen ([place] 5-325 Tablet) 1 Each Tablet, 1 EACH PO Q6H for PAIN, #10 TAB Prov:GENIA CANDELARIO NP 12/18/16 Follow-up Plan Perfecto Mathew MD Specialty Oncology, Hematology Office Address [address] [address] Office Primary Care Provider [facility] Time spent on discharge: > 30 minutes Pending Labs Left Lung Mass Biopsy MICROSCOPIC DIAGNOSIS: -- Malignant spindle cell neoplasm with morphologic and immunophenotypical features consistent with metastatic monophasic synovial sarcoma. Laboratory Tests Test 12/18/16 04:58 White Blood Count 11.310^3/ul (4.8-10.8) Red Blood Count 4.4010^6/ul (4.20-5.40) Hemoglobin 12.4g/dl (12.0-16.0) Hematocrit 37.5% (37.0-47.0) Mean Corpuscular Volume 85.2fl (82.0-101.0) Mean Corpuscular Hemoglobin 28.2pg (29.0-33.0) Mean Corpuscular Hemoglobin Concent 33.1g/dl (32.0-37.0) Red Cell Distribution Width 14.0% (11.5-14.5) Platelet Count 41534^3/UL (140-415) Mean Platelet Volume 9.5fl (7.4-10.4) Neutrophils % 60.2% (39.0-77.0) Lymphocytes % 27.4% (15.0-51.0) Monocytes % 7.0% (0.0-11.0) Eosinophils % 4.3% (0.0-7.0) Basophils % 0.7% (0.0-2.0) Nucleated Red Blood Cells % 0.0/100WBC (0.0-0.0) Neutrophils # 6.810^3/ul (1.6-7.5) Lymphocytes # 3.110^3/ul (0.8-2.9) Monocytes # 0.810^3/ul (0.3-0.9) Eosinophils # 0.510^3/ul (0.0-0.5) Basophils # 0.110^3/ul (0.0-0.1) Nucleated Red Blood Cells # 0.010^3/ul (0.0-0.0) Sodium Level 138mmol/L (135-144) Potassium Level 4.2mmol/L (3.5-5.1) Chloride Level 106mmol/L (97-110) Carbon Dioxide Level 23mmol/L (21-31) Anion Gap 13 (8-16) Blood Urea Nitrogen 11mg/dl (7-20) Creatinine 0.61mg/dl (0.44-1.00) Glucose Level 93mg/dl (70-220) Calcium Level 9.2mg/dl (8.4-10.2) GENIA CANDELARIO NP Dec 18, 2016 16:28
--- NOTE | 2016-12-18 16:40 | QN ---
Documentation Comment Pt is being discharged today. I reminded her and her family to make an appointment to see Dr. Mathew next week. She is stable and comfortable appearing now. Family has Dr. Mathew's business card. JEWELS WATSON MD Dec 18, 2016 16:40
[2016-12-18 20:13] VITALS: BP 94/57; RESP 16
== END 2016-12-18 21:35 | disposition home or self-care (01) | DRG 181 ==
LOC: PP2 20:27
PROVIDERS: ADMIT Internal Medicine; ATTEND Internal Medicine
PROC: 0W9B3ZX Drainage of Left Pleural Cavity, Percutaneous Approach, Diagnostic (ICD-10-PCS; principal; 2016-12-08)
PROC: 0BBL3ZX Excision of Left Lung, Percutaneous Approach, Diagnostic (ICD-10-PCS; 2016-12-10)
PROC: 0JH63XZ Insertion of Tunneled Vascular Access Device into Chest Subcutaneous Tissue and Fascia, Percutaneous Approach (ICD-10-PCS; 2016-12-17)
PROC: 02H633Z Insertion of Infusion Device into Right Atrium, Percutaneous Approach (ICD-10-PCS; 2016-12-17)
PROC: B214YZZ Fluoroscopy of Right Heart using Other Contrast (ICD-10-PCS; 2016-12-17)
DX: C78.02 Secondary malignant neoplasm of left lung (principal); J91.0 Malignant pleural effusion; F17.210 Nicotine dependence, cigarettes, uncomplicated; J45.909 Unspecified asthma, uncomplicated; R91.8 Other nonspecific abnormal finding of lung field; Z90.49 Acquired absence of other specified parts of digestive tract; Z85.828 Personal history of other malignant neoplasm of skin
CPT/HCPCS: 32555; 36561; 70470; 71010; 71250; 71260; 74177; 76942; 77012; 80048; 80053; 80061; 82042; 82378; 82945; 83036; 83615; 83735; 83880; 84155; 84157; 84443; 84703; 85025; 85610; 85730; 86430; 87070; 87081; 87102; 87116; 88104; 88305; 88313; 88341; 88342; 89051; 90686; 93306; 94640; 94664; C1788; J0690; J1644; J1885; J1940; J2060; J2250; J2270; J2370; J2405; J3010; J7030; Q9967

== ENCOUNTER 2017-09-23 01:55 | Inpatient (IN) | END 2017-09-24 13:15 | disposition home or self-care (01) | DRG 871 ==

== ENCOUNTER 2018-03-26 12:51 | Inpatient (IN) | payer OTHER ==
[~2018-03-26] VITALS: Ht 157.5 cm; Wt 73.0 kg
[~2018-03-26 12:51] MED LIST: ALBU8.5H8 INH; FAMO20TA18 PO; HYDR-4011 PO; LEVO750T8 PO; ONDA4TAB95 PO
[2018-03-26] MEDS ORDERED: HYDROmorphONE 1 MG/ML SYG IV STA (18:06)
[2018-03-26] MEDS ORDERED: ONDANSETRON 4 MG INJ IV STA (18:06)
[2018-03-26] MEDS ORDERED: SOD CHLORIDE 0.9% 500 ML IV STA (18:06)
[2018-03-26] MEDS ORDERED: HYDR-3980 PO (19:02)
[2018-03-26] MEDS ORDERED: ONDANSETRON 4 MG INJ IV PRN ×2 (20:00→20:30)
[2018-03-26] MEDS ORDERED: ACETAMINOPHEN 325 MG TAB PO PRN ×2 (20:00→20:30)
--- NOTE | 2018-03-26 20:05 | ERD ---
ER Documentation Chief Complaint Chief Complaint ref: myles 'wlibert eff' hx sarcoma w mets. Onco MD Marley HPI This is a 42-year-old female had a history of forearm sarcoma that was treated and resected and she developed bilateral lung tumors. Her last chemo was 35 days ago. She is developed a large left pleural effusion was sent here for admission for thoracentesis by Dr. Telles. Patient has a cough that is chronic but no blood. No fever. No shortness of breath at rest. The patient has had a thoracentesis on the left side in the past. No substernal chest pain ROS All systems reviewed and are negative except as per history of present illness. Medications Home Meds Reported Medications Hydrocodone/Acetaminophen ([place] 10-325 Tablet) 1 Each Tablet, 1 EACH PO Q6H, TAB 03/26/18 Discontinued Reported Medications Ondansetron Hcl* (Ondansetron Hcl*) 4 Mg Tablet, 4 MG PO Q4H PRN for NAUSEA AND OR VOMITING, TAB 09/23/17 Famotidine* (Famotidine*) 20 Mg Tablet, 20 MG PO DAILY, #30 TAB 09/23/17 Discontinued Scripts Levofloxacin* (Levofloxacin*) 750 Mg Tablet, 750 MG PO DAILY, #7 TAB Prov:GENIA CANDELARIO MEDICAL RECORDS TECHNICIAN 09/24/17 Albuterol Sulfate* (Proair HFA*) 8.5 Gm Hfa.aer.ad, 2 PUFF INH Q6, #1 INHALER Prov:GENIA CANDELARIO MEDICAL RECORDS TECHNICIAN 12/18/16 Hydrocodone/Acetaminophen ([place] 5-325 Tablet) 1 Each Tablet, 1 EACH PO Q6H for PAIN, #10 TAB Prov:GENIA CANDELARIO MEDICAL RECORDS TECHNICIAN 12/18/16 Allergies Allergies: Coded Allergies: No Known Allergy (Unverified , 03/26/18) PMhx/Soc History of Surgery: No Anesthesia Reaction: No Hx Neurological Disorder: No Hx Respiratory Disorders: Yes (LUNG CA) Hx Cardiac Disorders: No Hx Psychiatric Problems: No Hx Miscellaneous Medical Probl: No Hx Alcohol Use: No Hx Substance Use: No Hx Tobacco Use: No Smoking Status: Never smoker FmHx Family History: No coronary disease Physical Exam Vitals Vital Signs Date Temp Pulse Resp B/P (MAP) Pulse Ox O2 O2 Flow FiO2 Time Delivery Rate 03/26/18 97.7 112 22 114/75 98 Room Air 17:18 (88) 03/26/18 99.6 101 22 114/72 98 14:04 (86) Physical Exam Const: Well-developed, well-nourished Head: Atraumatic, normocephalic Eyes: Normal Conjunctiva, PERRLA, EOMI, normal sclera, no nystagmus ENT: Normal External Ears, Nose and Mouth, moist mucus membranes. Neck: Full range of motion. No meningismus, no lymphadenopathy. Resp: Clear to auscultation right side only, no left lung sounds, no wheezing, rhonchi, rales Cardio: Regular rate and rhythm, no murmurs, S1 S2 present Abd: Soft, non tender x 4, non distended. Normal bowel sounds, no guarding or rebound, no pulsitile abdominal masses or bruits Skin: No petechiae or rashes, no ecchymosis , no maculopapular rash Back: No midline or flank tenderness Ext: No cyanosis, or edema, FROM x 4, normal inspection, neurovascularly intact x 4 Neur: Awake and alert, STR 5/5 x 4, sensation intact x 4, no focal findings, cerebellum intact Psych: Normal Mood and Affect Result Diagram: 03/26/18181203/26/181812 Results 24 hrs Laboratory Tests Test 03/26/18 18:13 White Blood Count 9.3 10^3/ul Red Blood Count 3.98 10^6/ul Hemoglobin 12.2 g/dl Hematocrit 36.9 % Mean Corpuscular Volume 92.7 fl Mean Corpuscular Hemoglobin 30.7 pg Mean Corpuscular Hemoglobin Concent 33.1 g/dl Red Cell Distribution Width 14.6 % Platelet Count 267 10^3/UL Mean Platelet Volume 9.6 fl Immature Granulocytes % 0.300 % Neutrophils % 70.5 % Lymphocytes % 15.3 % Monocytes % 10.3 % Eosinophils % 3.2 % Basophils % 0.4 % Nucleated Red Blood Cells % 0.0 /100WBC Immature Granulocytes # 0.030 10^3/ul Neutrophils # 6.6 10^3/ul Lymphocytes # 1.4 10^3/ul Monocytes # 1.0 10^3/ul Eosinophils # 0.3 10^3/ul Basophils # 0.0 10^3/ul Nucleated Red Blood Cells # 0.0 10^3/ul Prothrombin Time 14.0 Sec Prothrombin Time Ratio 1.1 INR International Normalized Ratio 1.07 Activated Partial Thromboplast Time 29.7 Sec Sodium Level 136 mmol/L Potassium Level 3.9 mmol/L Chloride Level 97 mmol/L Carbon Dioxide Level 28 mmol/L Anion Gap 11 Blood Urea Nitrogen 11 mg/dl Creatinine 0.37 mg/dl Est Glomerular Filtrat Rate mL/min > 60 mL/min Glucose Level 110 mg/dl Calcium Level 11.1 mg/dl Total Bilirubin 0.3 mg/dl Direct Bilirubin 0.00 mg/dl Indirect Bilirubin 0.3 mg/dl Aspartate Amino Transf (AST/SGOT) 40 IU/L Alanine Aminotransferase (ALT/SGPT) 17 IU/L Alkaline Phosphatase 110 IU/L Troponin I 0.012 ng/ml Total Protein 7.7 g/dl Albumin 4.3 g/dl Globulin 3.40 g/dl Albumin/Globulin Ratio 1.26 Current Medications Medications Dose Sig/Alison Start Time Status Last (Trade) Ordered Route PRN Stop Time Admin Dose Reason Admin Sodium 500 ml @ Q1H STAT 03/26/18 DC 03/26/18 Chloride 500 mls/hr IV 18:06 18:32 03/26/18 19:05 1 mg ONCE STAT 03/26/18 DC 03/26/18 Hydromorphone IV 18:06 18:33 HCl 03/26/18 18:08 (Dilaudid) Ondansetron 4 mg ONCE STAT 03/26/18 DC 03/26/18 HCl (Zofran IV 18:06 18:32 Inj) 03/26/18 18:08 Procedures/MDM MR #: [id number] DOS: 03/26/18 1806 Ordering MD: ESTHER GRANADOS DO Location: E/R Room/Bed: PROCEDURE: XR Chest. CLINICAL INDICATION: chest pain TECHNIQUE: Single frontal view of the chest was obtained COMPARISON: 09/23/17 FINDINGS: There is worsening opacification of the left hemithorax, suspicious for worsening large left lung mass. There is shift of the mediastinum to the right. The heart size cannot be adequately evaluated. There is a right lower lobe lung mass measuring 3.8 cm. There is no pneumothorax. RPTAT: AA IMPRESSION: Worsening almost complete opacification of the left hemithorax, suspicious for worsening large left lung mass. Right lower lobe lung mass measuring 3.8 cm. .Heránn Taveras MD, Date Time Electronically viewed and signed by .Hernán Taveras MD, on 03/26/2018 18:19 .S/ CC: ESTHER GRANADOS DO [id number] EKG: Rate/Rhythm: Sinus rhythm with short IN QRS, ST, QT: Short IN, QRS, longer QT] Impression: Normal EKG We will admit the patient to telemetry for thoracentesis tomorrow morning to panel Departure Diagnosis: Primary Impression: Pleural effusion Condition: Stable ESTHER GRANADOS DO Mar 26, 2018 20:05
[2018-03-26] MEDS ORDERED: DOCUSATE SODIUM 100 MG CAP PO PRN (20:30)
[2018-03-26] MEDS ORDERED: HYDROCODONE/APAP (5/325) TAB PO PRN (20:30)
[2018-03-26] MEDS ORDERED: NACL 0.9% 3 ML SYG IV SCH (20:30)
[2018-03-26] MEDS ORDERED: BISACODYL (EC) 5 MG TAB PO PRN (20:30)
--- NOTE | 2018-03-26 20:42 | HP ---
Date/Time of Note Date/Time of Note DATE: 03/26/18 TIME: 20:41 Assessment/Plan VTE Prophylaxis SCD applied (from Nsg): Yes Pharmacological prophylaxis: NA/contraindicated Pharm contraindication: low risk/ambulating Lines/Catheters IV Catheter Type (from Nrsg): Saline Lock Assessment/Plan Hospital Course This is a 42-year-old female being admitted to the telemetry floor for: #1 Complete left chest white out on chest x-ray: Secondary possibly to worsening left lung mass and/or pleural effusion. 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 At the current time will obtain a CT chest to further evaluate. IR consultation for possible thoracentesis. Will consult pulmonology as well as hematology Dr. Mathew. #2 questionable pericardial effusion: Patient was told that fluid was noticed around the heart prior to coming into the hospital. Will obtain an echocardiogram to further evaluate. 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 Family has been going to Dr. Darien Pendleton for outpatient chemotherapy/immunotherapy. They do wish to possibly pursue further treatment at [facility], however they would like more information regarding this. At the current time will consult Dr. Mathew at the family's request for further recommendations. Pain management with morphine, she states that her [place] at home is not working so she would likely need her pain medication adjusted prior to discharge. Further treatment as per #1. #4 Asthma: PRN nebulizers as indicated #5 Dvt and gi prophylaxis: SCDs, no GI prophylaxis Further treatment strategy will be implemented as per the clinical course. Result Diagram: 03/26/18181203/26/18 1813 Results 24hrs Laboratory Tests Test 03/26/18 18:13 03/26/18 18:20 White Blood Count 9.3 # Red Blood Count 3.98 L Hemoglobin 12.2 Hematocrit 36.9 L Mean Corpuscular Volume 92.7 Mean Corpuscular Hemoglobin 30.7 Mean Corpuscular Hemoglobin Concent 33.1 Red Cell Distribution Width 14.6 H Platelet Count 267 # Mean Platelet Volume 9.6 Immature Granulocytes % 0.300 Neutrophils % 70.5 Lymphocytes % 15.3 Monocytes % 10.3 Eosinophils % 3.2 Basophils % 0.4 Nucleated Red Blood Cells % 0.0 Immature Granulocytes # 0.030 Neutrophils # 6.6 Lymphocytes # 1.4 Monocytes # 1.0 H Eosinophils # 0.3 Basophils # 0.0 Nucleated Red Blood Cells # 0.0 Prothrombin Time 14.0 Prothrombin Time Ratio 1.1 INR International Normalized Ratio 1.07 Activated Partial Thromboplast Time 29.7 Sodium Level 136 Potassium Level 3.9 Chloride Level 97 Carbon Dioxide Level 28 Anion Gap 11 Blood Urea Nitrogen 11 Creatinine 0.37 L Est Glomerular Filtrat Rate mL/min > 60 Glucose Level 110 Calcium Level 11.1 H Total Bilirubin 0.3 Direct Bilirubin 0.00 Indirect Bilirubin 0.3 Aspartate Amino Transf (AST/SGOT) 40 Alanine Aminotransferase (ALT/SGPT) 17 Alkaline Phosphatase 110 Troponin I 0.012 Total Protein 7.7 Albumin 4.3 Globulin 3.40 H Albumin/Globulin Ratio 1.26 Serum HCG, Qualitative NEGATIVE HPI/ROS Admit Date/Time Admit Date/Time Hx of Present Illness Chief complaint: Sent in by oncologist for possible effusion This is a 42-year-old female had a history of forearm sarcoma that was treated and resected and she developed bilateral lung tumors. Her last chemo was 35 days ago. She is developed a large left pleural effusion was sent here for admission for thoracentesis by her oncologist. Patient has a cough that is chronic but no blood. No fever. No shortness of breath at rest. The patient has had a thoracentesis on the left side in the past. No substernal chest pain Allergies: NKDA Medications: See May Const: As per HPI Eyes : No pain discharge or redness or change in visual acuity ENT: No pain, sore throat, congestion, congestion, dysphagia or discharge Respiratory: As per HPI Cardiovascular: No chest pain, palpitation, PND, or edema GI : no change in appetite, abdominal pain, nausea, vomiting, diarrhea, constipation, or change in the color his stool Genitourinary: No dysuria, hematuria, flank pain , discharge or CVA tenderness Musculoskeletal: No joint pain, back pain, neck pain, restricted range of motion in neck or joints Skin: No rash, bruising or hives Neuro: No headache, dizziness, syncope, seizure, focal weakness Endocrine: No polyuria, polydipsia, temperature intolerance Psych: No hallucination, depression, anxiety or suicidal ideation PMH/Family/Social Past Medical History Lung biopsy: Malignant spindle cell neoplasm with morphologic and immunophenotypical features consistent with metastatic monophasic synovial sarcoma Medications Current Medications IV Flush (NS 3 ml) 3 ml PER PROTOCOL IV ; Start 03/26/18 at 20:30 Ondansetron HCl (Zofran Inj) 4 mg Q6H PRN IV NAUSEA/VOMITING; Start 03/26/18 at 20:30 Acetaminophen (Tylenol Tab) 650 mg Q6H PRN PO .PAIN 1-3 OR TEMP; Start 03/26/18 at 20:30 Acetaminophen/ Hydrocodone Bitart ([place] (5/325)) 1 tab Q6H PRN PO .PAIN 4-6; Start 03/26/18 at 20:30 Docusate Sodium (Colace) 100 mg Q12H PRN PO .CONSTIPATION; Start 03/26/18 at 20:30 Bisacodyl (Dulcolax) 5 mg DAILY PRN PO .CONSTIPATION; Start 03/26/18 at 20:30 Coded Allergies: No Known Allergy (Unverified , 03/26/18) Past Surgical History left forearm sarcoma removal, cholecystectomy Past Surgical Hx: other Family History Significant Family History: cancer (father) Social History Alcohol Use: none Smoking Status: Former smoker Drug Use: none Exam/Review of Systems Vital Signs Vitals Vital Signs Date Temp Pulse Resp B/P (MAP) Pulse Ox O2 O2 Flow FiO2 Time Delivery Rate 03/26/18 97.7 112 22 114/75 98 Room Air 17:18 (88) Exam Exam General: Patient is currently sitting upright in bed she does not appear to be in any acute distress, she does have coughing fits when she changes position HEENT: Atraumatic, normocephalic. The pupils are equal, round and reactive. Extraocular motor are intact Neck: Supple with full range of motion. No rigidity or meningismus Chest: Port-A-Cath Lungs: Diminished breath sounds across the whole left lung field, good aeration on the right Heart: Normal S1-S2, Regular rhythm and rate. Abdomen: Soft , nontender, nondistended , bowel sounds are present. No guarding no rebound tenderness , No masses or organomegaly. No costovertebral temporal angle mass Extremities: Normal to inspection, no edema no cyanosis Neurologic: Normal mental status, speech normal, cranial nerves II through XII are intact, motor and sensory are intact, Additional Comments PROCEDURE: XR Chest. CLINICAL INDICATION: chest pain TECHNIQUE: Single frontal view of the chest was obtained COMPARISON: 09/23/17 FINDINGS: There is worsening opacification of the left hemithorax, suspicious for worsening large left lung mass. There is shift of the mediastinum to the right. The heart size cannot be adequately evaluated. There is a right lower lobe lung mass measuring 3.8 cm. There is no pneumothorax. RPTAT: AA IMPRESSION: Worsening almost complete opacification of the left hemithorax, suspicious for worsening large left lung mass. Right lower lobe lung mass measuring 3.8 cm. .Hernán Taveras MD, MD Date Time Electronically viewed and signed by .Hernán Taveras MD, on 03/26/2018 18:19 .S/ CC: ESTHER GRANADOS DO [id number] JERMAINE MEJIA Mar 26, 2018 20:42
[2018-03-26] MEDS ORDERED: ALBUTEROL/IPRATROPIUM (NEB) 3 ML AMP HHN PRN (21:00)
[2018-03-26 22:56] VITALS: Ht 157.5 cm; Wt 73.0 kg
[2018-03-26 23:15] VITALS: PULSE 99
[2018-03-26 23:18] VITALS: BP 110/62; PULSE 102; RESP 17
[2018-03-26] MEDS ORDERED: morphine 4 MG/ML VIAL IV PRN (23:30)
[2018-03-27] VITALS (13 sets, daily range): BP systolic 101–127; BP diastolic 59–74; PULSE 91–120; RESP 17–20
[2018-03-27] MEDS: BENZONATATE 100 MG CAP PO PRN ×3 (00:16→19:54)
[2018-03-27] MEDS ORDERED: morphine 4 MG/ML VIAL IV ONE (02:45)
[2018-03-27] MEDS: morphine 4 MG/ML VIAL IV PRN ×2 (05:56→08:56)
--- NOTE | 2018-03-27 06:53 | NUR ---
EOSS: PATIENT WAS ADMITTED LAST NIGHT WITH A DIAGNOSIS OF LEFT PLEURAL EFFUSION. 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 PATIENT HAS A LUNG CARCINOMA WITH METS ( PER CT RESULT) PMD ( DR MEJIA) TALKED WITH THE PATIENT AND HER FAMILY, EXPLAINED PLAN OF CARE. PATIENT WANTED TO GO HOME BUT OPTED TO STAY TO HAVE THE ULTRASOUND GUIDED THORACENTESIS. PAIN MANAGEMENT WITH MORPHINE PRN.
[2018-03-27] MEDS ORDERED: BENZONATATE 100 MG CAP PO SCH (09:00)
[2018-03-27] MEDS ORDERED: IOHEXOL 14.3 MG(I)/ML (ADULT) BTL PO ONE (10:00)
--- NOTE | 2018-03-27 10:56 | CONS ---
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 Kenyon who is now her primary oncologist #Pericardial effusion -Dr. Pendleton had an echo done as an out patinet which raised concern for pericaridal effusion -our CT did not show a pericardial or pleural effusion -will perform echo in house to make sure #Pain -2/2 tumor burden -continue IV morphine as ordered Thank you for the opportunity to participate in this patients care A total of 40 minutes of face to face time was spent speaking with the patient, of which greater than 50% was spent in counseling and coordination of care and the detailed question and answer session. Consultation Date/Type/Reason Admit Date/Time 03/26/18 Date of Consultation: Mar 27, 2018 Type of Consult oncology Reason for Consultation metastatic sarcoma Requesting Provider: JERMAINE MEJIA Date/Time of Note DATE: 03/27/18 TIME: 10:38 Hx of Present Illness 42 yo female with metastatic sarcoma. Her history is as follows: -2012 pt was treated fro sarcoma of the R forearm -12/2016 pt was dx with recurrence at [facility] when she presented with a Large Left pleural effusion as well as 16.7cm L Lung mass. a 3,7 cm mass was also noted in the R azygo-esophageal recess. BX was done and this was confirmed as sarcoma rec urrence. CT Brain was done which showed no evidence of metastatic disease. -01/22/17-06/07/17 pt received 8 cycles of Adriamycin + Lartruvo to which she initially responded -07/2017-08/2017 pt received 3 more cycles of Lartruvo 08/28/[address] demonstrated increase in pleural effusion with mass effect on mediastinum 10/16/17 pt started in Adriamycin/ Ifex/ [place] 11/2017-01/2018 continued on single agent Ifex 03/20/[address] demonstrated progressive disease with a L hemothorax mass 21cm, a new lesions on L sided retroclavicle, anterior mediastinal and now R lung masses. At her oncologists office, Keerthi Higgins, pt had an echocardiogram done which revealed a possible pericardial effusion and pleural effusion. Pt is currently undergoing screening for Anlotinib vs DTIC clinical trial. Constitutional: diaphoresis, poor po Eyes: no complaints ENT: no complaints Respiratory: pain, pleuritic pain, shortness of breath Cardiovascular: no complaints Gastrointestinal: no complaints Genitourinary: no complaints Musculoskeletal: back pain, bone/joint pain Skin: no complaints Neurologic: no complaints Past Medical History asthma R arm sarcoma Home Meds Reported Medications Hydrocodone/Acetaminophen ([place] 10-325 Tablet) 1 Each Tablet, 1 EACH PO Q6H, TAB 03/26/18 Discontinued Reported Medications Ondansetron Hcl* (Ondansetron Hcl*) 4 Mg Tablet, 4 MG PO Q4H PRN for NAUSEA AND OR VOMITING, TAB 09/23/17 Famotidine* (Famotidine*) 20 Mg Tablet, 20 MG PO DAILY, #30 TAB 09/23/17 Discontinued Scripts Levofloxacin* (Levofloxacin*) 750 Mg Tablet, 750 MG PO DAILY, #7 TAB Prov:GENIA CANDELARIO NP 09/24/17 Albuterol Sulfate* (Proair HFA*) 8.5 Gm Hfa.aer.ad, 2 PUFF INH Q6, #1 INHALER Prov:GENIA CANDELARIO NP 12/18/16 Hydrocodone/Acetaminophen ([place] 5-325 Tablet) 1 Each Tablet, 1 EACH PO Q6H for PAIN, #10 TAB Prov:GENIA CANDELARIO ASSAULT AMPHIBIOUS VEHICLE OFFICER 12/18/16 Medications Current Medications IV Flush (NS 3 ml) 3 ml PER PROTOCOL IV ; Start 03/26/18 at 20:30 Ondansetron HCl (Zofran Inj) 4 mg Q6H PRN IV NAUSEA/VOMITING; Start 03/26/18 at 20:30 Acetaminophen (Tylenol Tab) 650 mg Q6H PRN PO .PAIN 1-3 OR TEMP; Start 03/26/18 at 20:30 Acetaminophen/ Hydrocodone Bitart ([place] (5/325)) 1 tab Q6H PRN PO .PAIN 4-6; Start 03/26/18 at 20:30 Docusate Sodium (Colace) 100 mg Q12H PRN PO .CONSTIPATION; Start 03/26/18 at 20:30 Bisacodyl (Dulcolax) 5 mg DAILY PRN PO .CONSTIPATION; Start 03/26/18 at 20:30 Albuterol/ Ipratropium (Duoneb) 3 ml Q4H RESP THERAPY PRN HHN SHORTNESS OF BREATH; Start 03/26/18 at 21:00 Benzonatate (Tessalon) 200 mg TID PRN PO COUGH Last administered on 03/27/18at 00:16; Admin Dose 200 MG; Start 03/27/18 at 00:00 Morphine Sulfate (morphine) 2 mg Q3H PRN IV SEVERE PAIN LEVEL 7-10 Last ad ministered on 03/27/18at 08:56; Admin Dose 2 MG; Start 03/27/18 at 03:00 Allergies: Coded Allergies: No Known Allergy (Unverified , 03/26/18) Past Surgical History Past Surgical Hx: other Family History Significant Family History: no pertinent family hx Social History Alcohol Use: none Smoking Status: Former smoker Drug Use: none Exam/Review of Systems Exam Vitals Vital Signs Date Temp Pulse Resp B/P (MAP) Pulse Ox O2 O2 Flow FiO2 Time Delivery Rate 03/27/18 97.5 94 20 105/59 98 Room Air 08:08 (74) 03/26/18 1.5 21:30 Intake and Output 03/26/18 03/26/18 03/27/18 1414:59 22:59 06:59 IntakeIntake Total 500 ml 100 ml BalanceBalance 500 ml 100 ml Constitutional: alert, oriented Psych: no complaints Head: normocephalic Eyes: nl conjunctiva ENMT: nl external ears & nose Neck: supple Respiratory: crackles/rales, diminished breath sounds Cardiovascular: regular rate and rhythm Gastrointestinal: soft Musculoskeletal: nl extremities to inspection Extremities: normal pulses Neurological: STATE AUDITOR II-XII intact Results Result Diagram: 03/27/18 0535 03/27/18 0535 Results 24hrs Laboratory Tests Test 03/26/18 18:13 03/26/18 18:20 03/27/18 05:35 White Blood Count 9.3 # 8.4 Red Blood Count 3.98 L 3.96 L Hemoglobin 12.2 12.0 Hematocrit 36.9 L 36.9 L Mean Corpuscular Volume 92.7 93.2 Mean Corpuscular Hemoglobin 30.7 30.3 Mean Corpuscular Hemoglobin Concent 33.1 32.5 Red Cell Distribution Width 14.6 H 14.7 H Platelet Count 267 # 278 Mean Platelet Volume 9.6 10.3 Immature Granulocytes % 0.300 0.200 Neutrophils % 70.5 68.8 Lymphocytes % 15.3 15.5 Monocytes % 10.3 10.3 Eosinophils % 3.2 4.7 Basophils % 0.4 0.5 Nucleated Red Blood Cells % 0.0 0.0 Immature Granulocytes # 0.030 0.020 Neutrophils # 6.6 5.8 Lymphocytes # 1.4 1.3 Monocytes # 1.0 H 0.9 Eosinophils # 0.3 0.4 Basophils # 0.0 0.0 Nucleated Red Blood Cells # 0.0 0.0 Prothrombin Time 14.0 Prothrombin Time Ratio 1.1 INR International Normalized Ratio 1.07 Activated Partial Thromboplast Time 29.7 Sodium Level 136 141 Potassium Level 3.9 3.9 Chloride Level 97 104 Carbon Dioxide Level 28 28 Anion Gap 11 9 Blood Urea Nitrogen 11 11 Creatinine 0.37 L 0.52 Est Glomerular Filtrat Rate mL/min > 60 > 60 Glucose Level 110 135 Calcium Level 11.1 H 10.3 H Total Bilirubin 0.3 0.1 L Direct Bilirubin 0.00 0.00 Indirect Bilirubin 0.3 0.1 Aspartate Amino Transf (AST/SGOT) 40 38 Alanine Aminotransferase (ALT/SGPT) 17 8 L Alkaline Phosphatase 110 101 Troponin I 0.012 Total Protein 7.7 7.2 Albumin 4.3 4.0 Globulin 3.40 H 3.20 Albumin/Globulin Ratio 1.26 1.25 Serum HCG, Qualitative NEGATIVE HUSSAIN STARR M.D. Mar 27, 2018 10:56
--- NOTE | 2018-03-27 11:39 | CONS ---
DATE OF ADMISSION: 03/26/2018 DATE OF CONSULTATION: 03/26/2018 TYPE OF CONSULTATION: Medical oncology REQUESTING PHYSICIAN: Dr. Horacio Mejia REASON FOR CONSULTATION: Metastatic sarcoma. Dear Dr. Mejia: Thank you very much for asking me to see this very interesting and pleasant patient in oncologic cons ultation. As you know, Ms. Marti is a 42-year-old female who was admitted to [facility] on 03/26/2018 after presenting to the Emergency Room with complaints of increasing shortness of breath and cough. This patient does have a known diagnosis of metastatic synovial carcinoma. In fact, I did see this p atient previously during the hospitalization of 12/2016. At that time, the patient was admitted with a large left-sided pleural effusion. A thoracentesis was done and a biopsy was done demonstrating a spindle cell tumor consistent with sarcoma. The patient does have a history of a sarcoma on the right forearm which was previously treated with s urgery and radiation while the patient was living in [place]. As mentioned, the patient was seen by me during the 12/2016 hospitalization. It was recommended at t hat time that the patient be treated with a combination of Adriamycin and Lartruvo. The patient was unable to be followed in my office because of insurance issues. The patient was seen by Dr. Emilie Marley, who did initiate the above-mentioned therapy. The patient received a total of 6 cycles of the combination of Adriamycin and Lartruvo. Following the completion of this combination the patient was then started on single agent Lartruvo. Initially, apparently there was some response but then there was evidence of progression. The patien t was then started on ifosfamide. The patient received last ifosfamide in 01/2018. More recently, the patient was seen by Dr. Darien Pendleton. The patient did have a PET/CT scan done on 0 03/21/2017. This did show evidence of new lesions on the right side as well as a lesion on the left s martha. There was also question of pericardial effusion. The patient's past history includes the history of the sarcoma of the right forearm. Patient has no history of hypertension, heart disease, renal or hepatic disease. PAST SURGICAL HISTORY: Patient surgeries have included the above-mentioned resection of sarcoma as w ell as the placement of a Port-A-Cath in the right chest. MEDICATIONS: At home have included: 1. Hydrocodone. 2. Acetaminophen. ALLERGIES: She has no known allergies. On admission, the patient has a white count of 9300, hemoglobin 12.2, hematocrit 36.9 and platelet co unt 273,000. On admission, the sodium was 136, potassium 3.9, chloride 97, BUN 11, creatinine 0.73, calcium 11.1, albumin 4.3. Today, calcium is 10.3, AST 40, ALT 17, alkaline phosphatase 110. Protime is 14 seconds, INR 1.07, PTT is 29.7 seconds. PHYSICAL EXAMINATION: GENERAL: At this time reveals a well-developed, but chronically ill female who is somewhat short of breath. VITAL SIGNS: Temperature 97.5, pulse 94, respirations 20, blood pressure is 95/59. Pulse oximetry 9 8% on room air. SKIN: No ecchymosis. No petechiae or rashes. HEENT: Normocephalic. No evidence of trauma. There is alopecia. The pupils are equal, round, reac t to light and accommodation. Sclerae nonicteric. Oral mucosa is moist without lesions. Tongue wel l papillated. No gingival hyperplasia, no hypertrophy of Waldeyer's ring. NECK: Supple, no jugular venous distention or thyroid enlargement. No carotid bruits. CHEST: Decreased breath sounds on the left side with dullness to percussion. There is a Port-A-Cath in place in the right anterior chest which has been accessed. HEART: Regular sinus rhythm, no S3, S4 or murmurs. ABDOMEN: Soft, no masses, no ascites. EXTREMITIES: Good range of motion. No clubbing, no edema or cyanosis. No palpable cords or Homans sign. NEUROLOGIC: Normal. DISCUSSION: This patient does have a documented metastatic synovial carcinoma. She has received treatment with Adriamycin and Lartruvo with progression of disease and also ifosfami de with some progression of disease. The patient is now admitted with increasing shortness of breath and possible pericardial effusion. I would suggest an echocardiogram at this time. This will help to determine both the patient's left ventricular function, given her previous exposure to doxorubicin, as well as whether or not there is a pericardial effusion with any hemodynamic consequences. Have requested that the original specimen from 12/2016 be analyzed for NTRK gene fusion. Patients wi th this chromosomal abnormality are candidates for treatment with a new tyrosine kinase inhibitor, La rotrectnib. Once again, thank you very much for the opportunity of participating in the medical care of this very interesting and pleasant patient. I will be happy to follow this patient with you and assist in her oncologic evaluation and follow up as necessary. Dictated By: CHELE WOODRUFF MD SR/NTS Conf#: [id number] DID#: [id number] CC: HORACIO MEJIA MD;*EndCC*
[2018-03-27] MEDS ORDERED: morphine 2 MG INJ ONE (11:53)
--- NOTE | 2018-03-27 12:56 | CONS ---
DATE OF ADMISSION: 03/26/2018 DATE OF CONSULTATION: TYPE OF CONSULTATION: Pulmonary. REASON FOR CONSULTATION: Shortness of breath. Thank you, Dr. Mejia, for this consultation. HISTORY OF PRESENT ILLNESS: This is an unfortunate 42-year-old lady with a history of synovial sarco ma with metastatic disease to the lung, large extensive lesion occluding almost the entire left lung, who presented with increasing shortness of breath, orthopnea, PND. No hemoptysis or hematemesis. S he has been followed by oncologist, Dr. Pendleton where she has been receiving chemotherapy. Last one w as approximately 35 days ago. Currently, she denies any hemoptysis or hematemesis. She has some imp rovement in her symptoms with supplemental O2. PAST MEDICAL HISTORY: As above. PHYSICAL EXAMINATION: GENERAL: Well-nourished, well-developed lady, comfortable at rest, in no acute distress. VITAL SIGNS: Currently afebrile, pulse is 97, blood pressure 105/59, O2 saturation 98% on room air. NECK: Supple. No JVD. CARDIAC: S1, S2. No added sounds or murmurs. CHEST: Diminished air entry, left lung. ABDOMEN: Soft, nontender. No guarding or rebound. EXTREMITIES: No cyanosis, clubbing, edema. NEUROLOGIC: Grossly intact. No focal deficits. LABORATORY DATA: White count 8.4, hemoglobin 12, platelets of 278. Chemistry within normal limits. IMPRESSION AND PLAN: 1. Large heterogeneous mass, left lung consistent with her metastatic sarcoma. 2. Diabetes. 3. Significant pleural effusion. 4. Thoracentesis. RECOMMENDATIONS: 1. Oncology reevaluation. 2. Discharge with outpatient oncology appointment. 3. Discuss goals of care. Dictated By: MALCOLM WARD MD SV/NTS Conf#: [id number] DID#: [id number] CC: EDUARDO YEBOAH MD; JERMAINE MEJIA MD;*End*
[2018-03-27] MEDS: morphine (ER) 15 MG TAB PO SCH ×2 (13:52→21:14)
[2018-03-27] MEDS ORDERED: HYDROmorphONE 2 MG TAB PO PRN (14:00)
[2018-03-27] MEDS: HYDROmorphONE 2 MG/ML SYG IV PRN ×2 (15:14→19:54)
--- NOTE | 2018-03-27 16:22 | NUR ---
Pt is stable, VS are WNL, Pain is controlled at this moment. Pt is still waiting to be picked up for CT of Abdomen with contrast. US guided Thoracentesis was cancelled because of non sufficient amount of fluid in the lungs. Family is at the bedside. will monitor.
--- NOTE | 2018-03-27 16:26 | PN ---
Date/Time of Note Date/Time of Note DATE: 03/27/18 TIME: 16:23 Assessment/Plan VTE Prophylaxis Risk score (from Nsg)>0 risk: 4 SCD applied (from Nsg): Yes Pharmacological prophylaxis: NA/contraindicated Pharm contraindication: low risk/ambulating Lines/Catheters IV Catheter Type (from Nrsg): Saline Lock Assessment/Plan Assessment/Plan 42 yo woman with metastatic synovial sarcoma with lung mets. # Complete left chest white out on chest x-ray: - CT chest shows worsening tumor burden. No pleural effusion. - Dr Davalos consulted. # questionable pericardial effusion: Patient was told that fluid was noticed around the heart prior to coming into the hospital. Will obtain an echocardiogram to further evaluate. # History of synovial sarcoma: - Dr. Darien Pendleton for outpatient chemotherapy/immunotherapy. They do wish to possibly pursue further treatment at [facility] - Dr. Marley following. - Will advance pain meds to MS Contin 15mg PO BID with PO dilaudid for prn. # Asthma: PRN nebulizers as indicated # Dvt and gi prophylaxis: SCDs, no GI prophylaxis Result Diagram: 03/27/18 0535 03/27/18 0535 Results 24hrs Laboratory Tests Test 03/26/18 18:13 03/26/18 18:20 03/27/18 05:35 White Blood Count 9.3 # 8.4 Red Blood Count 3.98 L 3.96 L Hemoglobin 12.2 12.0 Hematocrit 36.9 L 36.9 L Mean Corpuscular Volume 92.7 93.2 Mean Corpuscular Hemoglobin 30.7 30.3 Mean Corpuscular Hemoglobin Concent 33.1 32.5 Red Cell Distribution Width 14.6 H 14.7 H Platelet Count 267 # 278 Mean Platelet Volume 9.6 10.3 Immature Granulocytes % 0.300 0.200 Neutrophils % 70.5 68.8 Lymphocytes % 15.3 15.5 Monocytes % 10.3 10.3 Eosinophils % 3.2 4.7 Basophils % 0.4 0.5 Nucleated Red Blood Cells % 0.0 0.0 Immature Granulocytes # 0.030 0.020 Neutrophils # 6.6 5.8 Lymphocytes # 1.4 1.3 Monocytes # 1.0 H 0.9 Eosinophils # 0.3 0.4 Basophils # 0.0 0.0 Nucleated Red Blood Cells # 0.0 0.0 Prothrombin Time 14.0 Prothrombin Time Ratio 1.1 INR International Normalized Ratio 1.07 Activated Partial Thromboplast Time 29.7 Sodium Level 136 141 Potassium Level 3.9 3.9 Chloride Level 97 104 Carbon Dioxide Level 28 28 Anion Gap 11 9 Blood Urea Nitrogen 11 11 Creatinine 0.37 L 0.52 Est Glomerular Filtrat Rate mL/min > 60 > 60 Glucose Level 110 135 Calcium Level 11.1 H 10.3 H Total Bilirubin 0.3 0.1 L Direct Bilirubin 0.00 0.00 Indirect Bilirubin 0.3 0.1 Aspartate Amino Transf (AST/SGOT) 40 38 Alanine Aminotransferase (ALT/SGPT) 17 8 L Alkaline Phosphatase 110 101 Troponin I 0.012 Total Protein 7.7 7.2 Albumin 4.3 4.0 Globulin 3.40 H 3.20 Albumin/Globulin Ratio 1.26 1.25 Serum HCG, Qualitative NEGATIVE Subjective 24 Hr Interval Summary Free Text/Dictation Patient complains of intractable pain in a vise-like pattern around her chest. At home was taking [place] 10s usually 6 times per day. Otherwise breathing comfortably on room air. Exam/Review of Systems Exam Vitals Vital Signs Date Temp Pulse Resp B/P (MAP) Pulse Ox O2 O2 Flow FiO2 Time Delivery Rate 03/27/18 96 20 127/67 15:15 (87) 03/27/18 98.4 98 Room Air 15:04 03/26/18 1.5 21:30 Intake and Output 03/26/18 03/26/18 03/27/18 1515:00 23:00 07:00 IntakeIntake Total 500 ml 100 ml BalanceBalance 500 ml 100 ml Exam General: Patient is currently sitting upright in bed she does not appear to be in any acute distress, she does have coughing fits when she changes position HEENT: Atraumatic, normocephalic. The pupils are equal, round and reactive. Extraocular motor are intact Neck: Supple with full range of motion. No rigidity or meningismus Chest: Port-A-Cath Lungs: Diminished breath sounds across the whole left lung field, good aeration on the right Heart: Normal S1-S2, Regular rhythm and rate. Abdomen: Soft , nontender, nondistended , bowel sounds are present. No guarding no rebound tenderness , No masses or organomegaly. No costovertebral temporal angle mass Extremities: Normal to inspection, no edema no cyanosis Results Results 24hrs Laboratory Tests Test 03/26/18 18:13 03/26/18 18:20 03/27/18 05:35 White Blood Count 9.3 # 8.4 Red Blood Count 3.98 L 3.96 L Hemoglobin 12.2 12.0 Hematocrit 36.9 L 36.9 L Mean Corpuscular Volume 92.7 93.2 Mean Corpuscular Hemoglobin 30.7 30.3 Mean Corpuscular Hemoglobin Concent 33.1 32.5 Red Cell Distribution Width 14.6 H 14.7 H Platelet Count 267 # 278 Mean Platelet Volume 9.6 10.3 Immature Granulocytes % 0.300 0.200 Neutrophils % 70.5 68.8 Lymphocytes % 15.3 15.5 Monocytes % 10.3 10.3 Eosinophils % 3.2 4.7 Basophils % 0.4 0.5 Nucleated Red Blood Cells % 0.0 0.0 Immature Granulocytes # 0.030 0.020 Neutrophils # 6.6 5.8 Lymphocytes # 1.4 1.3 Monocytes # 1.0 H 0.9 Eosinophils # 0.3 0.4 Basophils # 0.0 0.0 Nucleated Red Blood Cells # 0.0 0.0 Prothrombin Time 14.0 Prothrombin Time Ratio 1.1 INR International Normalized Ratio 1.07 Activated Partial Thromboplast Time 29.7 Sodium Level 136 141 Potassium Level 3.9 3.9 Chloride Level 97 104 Carbon Dioxide Level 28 28 Anion Gap 11 9 Blood Urea Nitrogen 11 11 Creatinine 0.37 L 0.52 Est Glomerular Filtrat Rate mL/min > 60 > 60 Glucose Level 110 135 Calcium Level 11.1 H 10.3 H Total Bilirubin 0.3 0.1 L Direct Bilirubin 0.00 0.00 Indirect Bilirubin 0.3 0.1 Aspartate Amino Transf (AST/SGOT) 40 38 Alanine Aminotransferase (ALT/SGPT) 17 8 L Alkaline Phosphatase 110 101 Troponin I 0.012 Total Protein 7.7 7.2 Albumin 4.3 4.0 Globulin 3.40 H 3.20 Albumin/Globulin Ratio 1.26 1.25 Serum HCG, Qualitative NEGATIVE Medications Medication Current Medications IV Flush (NS 3 ml) 3 ml PER PROTOCOL IV ; Start 03/26/18 at 20:30 Ondansetron HCl (Zofran Inj) 4 mg Q6H PRN IV NAUSEA/VOMITING; Start 03/26/18 at 20:30 Acetaminophen (Tylenol Tab) 650 mg Q6H PRN PO .PAIN 1-3 OR TEMP; Start 03/26/18 at 20:30 Docusate Sodium (Colace) 100 mg Q12H PRN PO .CONSTIPATION; Start 03/26/18 at 20:30 Bisacodyl (Dulcolax) 5 mg DAILY PRN PO .CONSTIPATION; Start 03/26/18 at 20:30 Albuterol/ Ipratropium (Duoneb) 3 ml Q4H RESP THERAPY PRN HHN SHORTNESS OF BREATH; Start 03/26/18 at 21:00 Benzonatate (Tessalon) 200 mg TID PRN PO COUGH Last administered on 03/27/18at 10:52; Admin Dose 200 MG; Start 03/27/18 at 00:00 Morphine Sulfate (Ms Contin (Er)) 15 mg BID PO Last administered on 03/27/18at 13:52; Admin Dose 15 MG; Start 03/27/18 at 14:00 Hydromorphone HCl (Dilaudid) 2 mg Q3H PRN PO SEVERE PAIN LEVEL 7-10; Start 03/27/18 at 14:00 Hydromorphone HCl (Dilaudid) 2 mg Q2H PRN IV BREAKTHROUGH PAIN Last administered on 03/27/18at 15:14; Admin Dose 2 MG; Start 03/27/18 at 14:00 Senna (Senokot) 2 tab BID PO ; Start 03/27/18 at 21:00 EDUARDO YEBOAH MD Mar 27, 2018 16:26
--- NOTE | 2018-03-27 18:12 | NUR ---
EOSS: Pt is stable, Pain management is successful at this time. Pt had CT of Abdomen with PO and IV contrast, the results are pending. Family is at the bedside, all needs are attended. will endorse the care to [employer] shift
--- NOTE | 2018-03-27 19:56 | RADRPT ---
Echocardiogram Report Patient Name: CLARISSA PÉREZ Gender: Female Date: 1975 Study Date: 27-Mar-2018 Licensed Nurse Practitioner: Breezy Fletcher ODETTE Location: [id number] Ref. Physician: JERMAINE MEJIA Quality: Technically Difficult Study Procedures: Transthoracic echocardiogram with complete 2D, M-Mode, and doppler examination. Indications: Pericardial Effusion. 2D/M Mode Doppler Measurement Value Normal Ranges Measurement Value Normal Ranges LVIDd 2D 4.2 3.5 - 5.6 cm AV Peak Chong 1.2 m/sec LVIDs 2D 3.0 2.1 - 4.1 cm AV Peak PG 6.0 mmHg LVPWd 2D 0.7 0.6 - 1.1 cm LVOT Peak Chong 0.8 m/sec IVSd 2D 0.8 0.6 - 1.1 cm LVOT Peak PG 2.0 mmHg AoR Diam 2D 2.7 2.0 - 3.7 cm LA/Ao 2D 1 0 - 1 LA Dimen 2D 3.5 2.3 - 4.0 cm Findings Left Ventricle: Normal left ventricular systolic function. Normal left ventricular cavity size. Normal left ventricular wall thickness. Ejection fraction is visually estimated at 55 %. Right Ventricle: Normal right ventricular size. Normal right ventricular systolic function. Left Atrium: The left atrium is normal in size. Right Atrium: The right atrium is normal in size. Mitral Valve: Normal appearance of the mitral valve. Trace mitral regurgitation. Aortic Valve: Normal appearance of the aortic valve. No significant aortic stenosis or insufficiency. Tricuspid Valve: Normal appearance of the tricuspid valve. Unable to obtain RVSP due to minimal presence of tricuspid regurgitation. Pulmonic Valve: Normal pulmonic valve appearance. Pericardium: Normal pericardium with no significant pericardial effusion. Aorta: Normal aortic root. IVC: Normal size and normal respiratory collapse consistent with normal right atrial pressure. Conclusions Normal left ventricular systolic function. No pericardial effusion. No significant valvular or structural abnormalities. Electronically Signed By: Gabi Andrade 27-Mar-2018 19:55:52 -0800 Patient Name: CLARISSA PÉREZ Study Date: 27-Mar-2018 [id number]
[2018-03-27] MEDS: SENNA TAB PO SCH (21:14)
[2018-03-28] VITALS (11 sets, daily range): BP systolic 93–121; BP diastolic 55–79; PULSE 73–111; RESP 17–18
[2018-03-28] MEDS: HYDROmorphONE 2 MG/ML SYG IV PRN ×6 (01:59→20:44)
--- NOTE | 2018-03-28 06:25 | NUR ---
EOSS: OPTIMAL PAIN MANAGEMENT. ALL DUE MEDS GIVEN.
[2018-03-28] MEDS: SENNA TAB PO SCH ×2 (08:28→20:43)
[2018-03-28] MEDS: morphine (ER) 15 MG TAB PO SCH (08:28)
--- NOTE | 2018-03-28 10:31 | CONS ---
Assessment/Plan Assessment/Plan Assessment/Plan (Daily) Assessment recommendations; 1. 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 CT imaging of the chest not showing any significant pleural effusion to warrant thoracentesis. Findings are due to solid lung mass. Continue on supportive care. Consider discharge and follow-up with oncologist. Patient exhibiting adequate O2 saturation on room air. Prognosis is poor. Consultation Date/Type/Reason Admit Date/Time Mar 26, 2018 at 20:02 Initial Consult Date 03/27/18 Type of Consult Pulmonary Reason for Consultation Patient's condition is stable. Denies any shortness of breath at rest. Any coughing, sputum production hemoptysis, chest pain no fever or chills. General exam; young female, awake alert, currently no distress. HEENT exam; supple neck, no JVD. No lymphadenopathy. Midline trachea. No thyromegaly. Patient has fair dentition. No neck masses. Chest exam; diminished breath sounds left lung. Right lung is clear to auscultation. S1-S2 audible, no murmurs. Regular rhythm. Abdomen exam; soft, nontender. No organomegaly. Bowel sounds audible. Extremity exam; no edema clubbing. [employer] exam; no focal deficit. Requesting Provider: JERMAINE MEJIA Date/Time of Note DATE: 03/28/18 TIME: 10:29 Exam/Review of Systems Exam Vitals Vital Signs Date Temp Pulse Resp B/P (MAP) Pulse Ox O2 O2 Flow FiO2 Time Delivery Rate 03/28/18 104 08:01 03/28/18 Nasal 2.0 08:00 Cannula 03/28/18 97.9 18 93/69 (77) 93 07:32 Intake and Output 03/27/18 03/27/18 03/28/18 1515:00 23:00 07:00 IntakeIntake Total 960 ml 300 ml BalanceBalance 960 ml 300 ml Results Result Diagram: 03/27/18 0535 03/27/18 0535 Medications Medication Current Medications IV Flush (NS 3 ml) 3 ml PER PROTOCOL IV ; Start 03/26/18 at 20:30 Ondansetron HCl (Zofran Inj) 4 mg Q6H PRN IV NAUSEA/VOMITING; Start 03/26/18 at 20:30 Acetaminophen (Tylenol Tab) 650 mg Q6H PRN PO .PAIN 1-3 OR TEMP; Start 03/26/18 at 20:30 Docusate Sodium (Colace) 100 mg Q12H PRN PO .CONSTIPATION; Start 03/26/18 at 20:30 Bisacodyl (Dulcolax) 5 mg DAILY PRN PO .CONSTIPATION; Start 03/26/18 at 20:30 Albuterol/ Ipratropium (Duoneb) 3 ml Q4H RESP THERAPY PRN HHN SHORTNESS OF BREATH; Start 03/26/18 at 21:00 Benzonatate (Tessalon) 200 mg TID PRN PO COUGH Last administered on 03/27/18 19:54; Admin Dose 200 MG; Start 03/27/18 at 00:00 Morphine Sulfate (Ms Contin (Er)) 15 mg BID PO Last administered on 03/28/18at 08:28; Admin Dose 15 MG; Start 03/27/18 at 14:00 Hydromorphone HCl (Dilaudid) 2 mg Q3H PRN PO SEVERE PAIN LEVEL 7-10 Last administered on 03/27/18 18:39; Admin Dose 2 MG; Start 03/27/18 at 14:00 Hydromorphone HCl (Dilaudid) 2 mg Q2H PRN IV BREAKTHROUGH PAIN Last administered on 03/28/18 09:41; Admin Dose 2 MG; Start 03/27/18 at 14:00 Senna (Senokot) 2 tab BID PO Last administered on 03/28/18 08:28; Admin Dose 2 TAB; Start 03/27/18 at 21:00 AMELIE STAUFFER Mar 28, 2018 10:31
[2018-03-28] MEDS: BENZONATATE 100 MG CAP PO PRN ×2 (11:01→19:05)
[2018-03-28] MEDS ORDERED: HYDROmorphONE 2 MG TAB PO PRN (14:00)
--- NOTE | 2018-03-28 15:48 | PN ---
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 # Complete left chest white out on chest x-ray: - CT chest shows worsening tumor burden. No pleural effusion. - Dr Davalos consulted. # questionable pericardial effusion: - CT chest, echo negative for pericardial effusion. # History of synovial sarcoma: - Dr. Darien Pendleton for outpatient chemotherapy/immunotherapy. They do wish to possibly pursue further treatment at [facility] - Dr. Marley following. - Will advance pain meds to MS Contin 30mg PO BID with PO dilaudid for prn. # Asthma: PRN nebulizers as indicated # Dvt and gi prophylaxis: SCDs, no GI prophylaxis Result Diagram: 03/27/1835 03/27/1835 Subjective 24 Hr Interval Summary Free Text/Dictation No acute overnight events. Patient still requiring frequent PO and IV dilaudid. I explained plan to increase oral opioid analgesics and wean off IV dilaudid, patient and family in agreement. Exam/Review of Systems Exam Vitals Vital Signs Date Temp Pulse Resp B/P (MAP) Pulse Ox O2 O2 Flow FiO2 Time Delivery Rate 03/28/18 97.8 73 18 106/68 94 15:33 (81) 03/28/18 Nasal 2.0 08:00 Cannula Intake and Output 03/27/18 03/27/18 03/28/18 1515:00 23:00 07:00 IntakeIntake Total 960 ml 300 ml BalanceBalance 960 ml 300 ml Exam General: Patient is currently sitting upright in bed she does not appear to be in any acute distress, she does have coughing fits when she changes position HEENT: Atraumatic, normocephalic. The pupils are equal, round and reactive. Ext raocular motor are intact Neck: Supple with full range of motion. No rigidity or meningismus Chest: Port-A-Cath Lungs: Diminished breath sounds across the whole left lung field, good aeration on the right Heart: Normal S1-S2, Regular rhythm and rate. Abdomen: Soft , nontender, nondistended , bowel sounds are present. No guarding no rebound tenderness , No masses or organomegaly. No costovertebral temporal angle mass Extremities: Normal to inspection, no edema no cyanosis Medications Medication Current Medications IV Flush (NS 3 ml) 3 ml PER PROTOCOL IV ; Start 03/26/18 at 20:30 Ondansetron HCl (Zofran Inj) 4 mg Q6H PRN IV NAUSEA/VOMITING; Start 03/26/18 at 20:30 Acetaminophen (Tylenol Tab) 650 mg Q6H PRN PO .PAIN 1-3 OR TEMP; Start 03/26/18 at 20:30 Docusate Sodium (Colace) 100 mg Q12H PRN PO .CONSTIPATION; Start 03/26/18 at 20:30 Bisacodyl (Dulcolax) 5 mg DAILY PRN PO .CONSTIPATION; Start 03/26/18 at 20:30 Albuterol/ Ipratropium (Duoneb) 3 ml Q4H RESP THERAPY PRN HHN SHORTNESS OF BREATH; Start 03/26/18 at 21:00 Benzonatate (Tessalon) 200 mg TID PRN PO COUGH Last administered on 03/28/18at 11:01; Admin Dose 200 MG; Start 03/27/18 at 00:00 Hydromorphone HCl (Dilaudid) 2 mg Q2H PRN IV BREAKTHROUGH PAIN Last administered on 03/28/18at 13:42; Admin Dose 2 MG; Start 03/27/18 at 14:00 Senna (Senokot) 2 tab BID PO Last administered on 03/28/18at 08:28; Admin Dose 2 TAB; Start 03/27/18 at 21:00 Morphine Sulfate (Ms Contin (Er)) 30 mg BID PO ; Start 03/28/18 at 21:00 Hydromorphone HCl (Dilaudid) 4 mg Q3H PRN PO SEVERE PAIN LEVEL 7-10; Start 03/28/18 at 14:00 EDUARDO YEBOAH MD Mar 28, 2018 15:48
--- NOTE | 2018-03-28 19:40 | NUR ---
EOSS pt is alert and orientedx4, stable pt intermittently removes her oxygen, she is saturating 96% on room air, oxygen available for use if needed, MD aware pt family at bedside hourly rounding done
[2018-03-28] MEDS: morphine (ER) 30 MG TAB PO SCH (20:46)
[2018-03-29] VITALS (8 sets, daily range): BP systolic 100–136; BP diastolic 54–81; PULSE 76–113; RESP 18–20
[2018-03-29] MEDS: HYDROmorphONE 2 MG/ML SYG IV PRN ×3 (00:07→06:26)
--- NOTE | 2018-03-29 06:29 | NUR ---
END OF THE SHIFT:PT. IS AA,O X 4,VS-WNL.CONTINUE PAIN MANAGEMENT (DILAUDID) NEEDED.
[2018-03-29] MEDS: SENNA TAB PO SCH ×2 (09:00→21:00)
[2018-03-29] MEDS: morphine (ER) 30 MG TAB PO SCH ×2 (09:00→21:00)
[2018-03-29] MEDS ORDERED: MORP30TA3 PO (10:23)
[2018-03-29] MEDS ORDERED: HYDR2TAB36 PO (10:23)
[2018-03-29] MEDS ORDERED: SENN-120 PO (10:23)
--- NOTE | 2018-03-29 10:26 | PDOCDIS ---
Discharge Instructions DIAGNOSIS Discharge Diagnosis Metastatic synovial sarcoma CONDITION [id number] Patient Condition: [id number] Guarded HOME CARE INSTRUCTIONS: [id number] Diet Instructions: [id number] Regular ACTIVITY: [id number] Activity Restrictions: [id number] No Restrictions FOLLOW UP/APPOINTMENTS Follow-up Plan 1. For pain, take MS Contin twice daily scheduled and Dilaudid as needed for pain. 2. Your pain medicines increase your risk of constipation. Take Senna twice daily for constipation. 3. Take all other medicines as prescribed. 4. Follow up with Dr. Kenyon as scheduled. 5. In general, you will get higher quality care if you continue to follow the same oncologist. EDUARDO YEBOAH MD Mar 29, 2018 10:26
[2018-03-29] MEDS: HYDROmorphONE 4 MG TAB PO PRN ×2 (12:05→15:20)
[2018-03-29] MEDS: BENZONATATE 100 MG CAP PO PRN (13:29)
--- NOTE | 2018-03-29 13:35 | NUR ---
NURSE NOTE discharge instructions given to the pt and pt family all verbalized understanding of discharge instructions pt states his son won't be able to pick him up till 2330 francesight Charge NurseJoanna notified all belongings kept with the pt
--- NOTE | 2018-03-29 14:34 | NUR ---
SW Note: Call received from MD stating patient has questions on how to change insurance groups. Met with patient and her daughters at bedside. Pts brother, Shyam requesting information but was not at bedside. Daughters contacted Shyam via phone. Family understands that the patient has [employer] and that the oncologist they would like for her to follow up with only accepts full scope/straight medi-alex. Family requesting that SW assist in helping the patient obtain straight medical benefits. SW explained to the family that they would need to contact [employer] at to start the process. Family states that they have already contact the insurance and the insurance is requesting a letter from an MD. SW encouraged family to clarify with the insurance company what information they need specifically. SW explained that they are most likely referring to clinical documentation. If clinical documentation is needed, family would need to speak with the medical records office at ([phone]) to request medical records. Family plans to follow up with the medical records office and the insurance company tomorrow (03/30/18).
--- NOTE | 2018-03-29 15:51 | DS ---
Date/Time of Note Date/Time of Note DATE: 03/29/18 TIME: 15:44 Discharge Summary Admission/Discharge Info Admit Date/Time Mar 26, 2018 at 20:02 Discharge Date/Time Mar 29, 2018 Discharge Diagnosis Metastatic synovial sarcoma Patient Condition: Guarded Consults Dr. Marley and Dr. Mathew, oncology Dr. 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 Her last chemo was 35 days ago. She developed a left lung white-out on CXR concerning for left pleural effusion and was sent here for admission for thoracentesis by her onco logist. Patient has a cough that is chronic but no blood. No fever. No shortness of breath at rest. The patient has had a thoracentesis on the left side in the past. No substernal chest pain Allergies: NKDA Medications: See [facility] Hospital Course The patient was admitted with stable vitals, breathing comfortably on room air. She had extreme cancer-related pain and required long-acting MS Contin and high doses of PO dilaudid. CT chest/abdomen/pelvis confirmed no pleural effusion; the L chest was just filled with solid tumor. There were new hepatic nodules which are likely mets. Of note, the patient has been through two oncologists including Dr. Marley and Dr. Pendleton, neither of which they want to return to. The reason for this is unc lear; according to her uncle "they didn't do anything for her". Now they are very interested in having her follow Dr. Mathew, although he only takes full- scope Medi-Alex which the patient does not have. The family requested the patient stay in the hospital until "Dr. Mathew agrees to see her" which I explained was unreasonable. Home Meds Active Scripts Sennosides* (Senna Lax*) 8.6 Mg Tablet, 2 TAB PO BID, #120 TAB Prov:EDUARDO YEBOAH MD 03/29/18 Morphine Sulfate (Morphine Sulfate ER) 30 Mg Tablet.er, 30 MG PO BID, #60 TAB Prov:EDUARDO YEBOAH MD 03/29/18 Hydromorphone Hcl* (Dilaudid*) 2 Mg Tablet, 4 MG PO Q3H PRN for SEVERE PAIN LEVEL 7-10, #60 TAB Prov:EDUARDO YEBOAH MD 03/29/18 Discontinued Reported Medications Hydrocodone/Acetaminophen ([place] 10-325 Tablet) 1 Each Tablet, 1 EACH PO Q6H, TAB 03/26/18 Ondansetron Hcl* (Ondansetron Hcl*) 4 Mg Tablet, 4 MG PO Q4H PRN for NAUSEA AND OR VOMITING, TAB 09/23/17 Famotidine* (Famotidine*) 20 Mg Tablet, 20 MG PO DAILY, #30 TAB 09/23/17 Discontinued Scripts Levofloxacin* (Levofloxacin*) 750 Mg Tablet, 750 MG PO DAILY, #7 TAB Prov:GENIA CANDELARIO NP 09/24/17 Albuterol Sulfate* (Proair HFA*) 8.5 Gm Hfa.aer.ad, 2 PUFF INH Q6, #1 INHALER Prov:GENIA CANDELARIO NP 12/18/16 Hydrocodone/Acetaminophen ([place] 5-325 Tablet) 1 Each Tablet, 1 EACH PO Q6H for PAIN, #10 TAB Prov:GENIA CANDELARIO NP 12/18/16 Follow-up Plan 1. For pain, take MS Contin twice daily scheduled and Dilaudid as needed for pain. 2. Your pain medicines increase your risk of constipation. Take Senna twice daily for constipation. 3. Take all other medicines as prescribed. 4. Follow up with Dr. Kenyon as scheduled. 5. In general, you will get higher quality care if you continue to follow the same oncologist. Primary Care Provider Not On Staff Doctor Time spent on discharge: > 30 minutes EDUARDO YEBOAH MD Mar 29, 2018 15:51
[2018-03-29] MEDS ORDERED: HYDROmorphONE 4 MG TAB PO PRN (16:00)
[2018-03-29] MEDS ORDERED: DIPHENHYDRAMINE 25 MG CAP PO PRN (17:30)
--- NOTE | 2018-03-29 17:58 | NUR ---
EOSS pt is alert and orientedx4, stable Tele box monitor still on family at the bedside pt given discharge instructions earlier will endorse to oncoming shift
--- NOTE | 2018-03-29 21:33 | NUR ---
DISCHARGE INSTRUCTIONS GIVEN,TELE MONITOR AND HEPLOCK REMOVED,PT. DISCHARGED HOME VIA WHEELCHAIR ACCOMPANIED BY [employer]WA[employer] MATE AND FAMILY MEMBERS.
== END 2018-03-29 21:20 | disposition home or self-care (01) | DRG 181 ==
LOC: E/R 12:51 → 6WM 20:02
PROVIDERS: ADMIT Family Medicine; ATTEND Internal Medicine
DX: C78.02 Secondary malignant neoplasm of left lung (principal); C49.11 Malignant neoplasm of connective and soft tissue of right upper limb, including shoulder; C78.2 Secondary malignant neoplasm of pleura; C78.01 Secondary malignant neoplasm of right lung; G89.3 Neoplasm related pain (acute) (chronic)
CPT/HCPCS: 36415; 71045; 71250; 74177; 76604; 80053; 84484; 84703; 85025; 85610; 85730; 93005; 93306; 96361; 96374; 96375; J1170; J2270; J2405; J7040; Q9967

== ENCOUNTER 2018-05-23 16:48 | Inpatient (IN) | payer OTHER ==
[~2018-05-23] VITALS: Ht 165.1 cm; Wt 69.7 kg
[~2018-05-23 16:48] MED LIST changes: -ALBU8.5H8 INH; -FAMO20TA18 PO; -HYDR-4011 PO; +HYDR2TAB36 PO; -LEVO750T8 PO; +MORP30TA3 PO; -ONDA4TAB95 PO; +SENN-120 PO
[2018-05-23 16:54] VITALS: Ht 165.1 cm; Wt 69.7 kg
[2018-05-23] MEDS ORDERED: CEFEPIME 2GM/50 ML (PMX) 50 ML IVPB STA (17:26)
[2018-05-23] MEDS ORDERED: SODIUM CHLORIDE 0.9% 1L BAG IV* STA (17:26)
[2018-05-23] MEDS ORDERED: VANCOMYCIN 1 GM (PMX) 250 ML IVPB STA (17:26)
[2018-05-23] MEDS ORDERED: HYDR4TAB51 PO (17:57)
[2018-05-23] MEDS ORDERED: OXYC-481 PO (17:58)
[2018-05-23] MEDS ORDERED: MORP15TA92 PO (17:58)
[2018-05-23] MEDS ORDERED: morphine 4 MG/ML VIAL IV STA ×2 (18:41→20:02)
[2018-05-23] MEDS ORDERED: ACETAMINOPHEN 325 MG TAB PO PRN (21:00)
[2018-05-23] MEDS ORDERED: ONDANSETRON 4 MG INJ IV PRN (21:00)
[2018-05-23] MEDS ORDERED: morphine 2 MG INJ IV PRN (21:00)
[2018-05-23] MEDS ORDERED: ACETAMINOPHEN 650MG/20.3ML CUP PO PRN (21:00)
[2018-05-23] MEDS ORDERED: FUROSEMIDE 40 MG INJ IV ONE (21:00)
[2018-05-23] MEDS ORDERED: IPRATROPIUM (NEB) 0.5 MG/2.5 ML AMP NEB PRN (21:00)
[2018-05-23] MEDS ORDERED: SOD CHLORIDE 0.9% 100 ML ONE (21:05)
[2018-05-23] MEDS ORDERED: IOHEXOL 100 ML ONE (21:05)
--- NOTE | 2018-05-23 22:06 | ERD ---
ER Documentation Chief Complaint Chief Complaint CP x 1wk; lung ca with mets to liver; HPI 43-year-old female with a history of synovial sarcoma with metastasis to the lung brought in by family for increasing confusion over the past few days and increasing shortness of breath. She also complains of chest pain that is chronic but also worsening. No fevers or chills. No vomiting or diarrhea. Otherwise history is limited as the patient is not answering questions consistently due to her distress. ROS . Limited given confusion and respiratory distress Medications Home Meds Reported Medications Morphine Sulfate* (Ms Contin*) 15 Mg Tablet.sa, 30 MG PO Q12, TAB 05/23/18 Oxycodone Hcl* (IR) (Roxicodone*) 5 Mg Tab, 10 MG PO Q4H PRN for PAIN, TAB 05/23/18 Hydromorphone Hcl* (Dilaudid*) 4 Mg Tablet, 4 MG PO Q4H PRN for PAIN, TAB 05/23/18 Discontinued Scripts Sennosides* (Senna Lax*) 8.6 Mg Tablet, 2 TAB PO BID, #120 TAB Prov:EDUARDO YEBOAH MD 03/29/18 Morphine Sulfate (Morphine Sulfate ER) 30 Mg Tablet.er, 30 MG PO BID, #60 TAB Prov:EDUARDO YEBOAH MD 03/29/18 Hydromorphone Hcl* (Dilaudid*) 2 Mg Tablet, 4 MG PO Q3H PRN for SEVERE PAIN LEVEL 7-10, #60 TAB Prov:EDUARDO YEBOAH MD 03/29/18 Allergies Allergies: Coded Allergies: No Known Allergy (Unverified , 05/23/18) PMhx/Soc Anesthesia Reaction: No Hx Neurological Disorder: No Hx Respiratory Disorders: Yes (sob due to lung mass) Hx Cardiac Disorders: No Hx Psychiatric Problems: No Hx Miscellaneous Medical Probl: Yes (Synovial sarcoma with metastasis to liver and lung) Hx Alcohol Use: No Hx Substance Use: No Hx Tobacco Use: Yes Smoking Status: Former smoker FmHx Unable to obtain Physical Exam Vitals Vital Signs Date Temp Pulse Resp B/P (MAP) Pulse Ox O2 O2 Flow FiO2 Time Delivery Rate 05/23/18 125 12 97/67 (77) 100 Room Air 23:13 05/23/18 125 18 91/64 (73) 100 Room Air 22:42 05/23/18 115 28 102/62 97 Non 21:11 (75) Rebreather 05/23/18 Non 4 17:22 Rebreather 05/23/18 97.9 128 25 125/58 96 16:54 (80) Physical Exam Const: Significant respiratory distress, ill-appearing Head: Atraumatic Eyes: Normal Conjunctiva ENT: Normal External Ears, Nose and Mouth. Neck: Full range of motion. No meningismus. No JVD Resp: Tachypneic with diminished breath sounds on the left side. Clear on the right side. No retractions noted Cardio: Tachycardic with regular rhythm , no murmurs. 2+ distal pulses in all 4 extremities Abd: Soft, non tender, non distended. Normal bowel sounds Skin: No petechiae or rashes Back: No midline or flank tenderness Ext: No cyanosis, 1+ bilateral lower extremity pitting edema. Neur: Awake and alert, not answering questions consistently, moving all extremities spontaneously, no facial asymmetry. Psych: Normal Mood and Affect Result Diagram: 05/23/18 1750 05/23/18 1750 Results 24 hrs Laboratory Tests Test 05/23/18 17:50 05/23/18 18:30 05/23/18 22:41 White Blood Count 19.5 10^3/ul Red Blood Count 4.34 10^6/ul Hemoglobin 11.5 g/dl Hematocrit 37.0 % Mean Corpuscular Volume 85.3 fl Mean Corpuscular Hemoglobin 26.5 pg Mean Corpuscular 31.1 g/dl Hemoglobin Concent Red Cell Distribution Width 17.6 % Platelet Count 144 10^3/UL Mean Platelet Volume 9.5 fl Immature Granulocytes % 0.900 % Neutrophils % 84.8 % Lymphocytes % 5.6 % Monocytes % 8.4 % Eosinophils % 0.1 % Basophils % 0.2 % Nucleated Red Blood Cells % 0.0 /100WBC Immature Granulocytes # 0.170 10^3/ul Neutrophils # 16.5 10^3/ul Lymphocytes # 1.1 10^3/ul Monocytes # 1.6 10^3/ul Eosinophils # 0.0 10^3/ul Basophils # 0.0 10^3/ul Nucleated Red Blood Cells # 0.0 10^3/ul Prothrombin Time 16.2 Sec Prothrombin Time Ratio 1.3 INR International Normalized Ratio 1.29 Activated Partial Thromboplast 35.3 Sec Time Sodium Level 139 mmol/L Potassium Level 4.3 mmol/L Chloride Level 107 mmol/L Carbon Dioxide Level 24 mmol/L Anion Gap 8 Blood Urea Nitrogen 18 mg/dl Creatinine 0.41 mg/dl Est Glomerular Filtrat Rate mL/min > 60 mL/min Glucose Level 118 mg/dl Calcium Level 14.5 mg/dl Troponin I < 0.012 ng/ml Lactic Acid Level 4.4 mmol/L 3.6 mmol/L Total Bilirubin 0.4 mg/dl Direct Bilirubin 0.00 mg/dl Indirect Bilirubin 0.4 mg/dl Aspartate Amino Transf (AST/SGOT) 32 IU/L Alanine 15 IU/L Aminotransferase (ALT/SGPT) Alkaline Phosphatase 231 IU/L Total Protein 5.7 g/dl Albumin 2.7 g/dl Current Medications Medications Dose Sig/Alison Start Time Status Last (Trade) Ordered Route PRN Stop Time Admin Dose Reason Admin Sodium 2,550 ml BOLUS OVER 2 05/23/18 DC 05/23/18 Chloride HOURS STAT 17:26 18:12 (NS) IV* 05/23/18 17:29 Vancomycin 250 ml @ ONCE STAT 05/23/18 DC 05/23/18 HCl 125 mls/hr IVPB 17:26 18:51 05/23/18 19:25 Cefepime HCl 50 ml @ ONCE STAT 05/23/18 DC 05/23/18 100 mls/hr IVPB 17:26 18:10 05/23/18 17:55 Morphine 6 mg ONCE STAT 05/23/18 DC 05/23/18 Sulfate IV 18:41 18:45 (morphine) 05/23/18 18:42 Morphine 4 mg ONCE STAT 05/23/18 DC 05/23/18 Sulfate IV 20:02 20:16 (morphine) 05/23/18 20:03 Ondansetron 4 mg ER BRIDGE 05/23/18 HCl (Zofran PRN IV 21:00 Inj) NAUSEA/VOMITI 05/24/18 20:59 NG 650 mg ER BRIDGE 05/23/18 Acetaminophen PRN PO 21:00 (Tylenol .MILD PAIN 05/24/18 20:59 Tab) 1-3 OR TEMP Furosemide 80 mg ONCE ONCE 05/23/18 DC 05/23/18 (Lasix) IV 21:00 23:04 05/23/18 21:01 Zoledronic 105 ml @ ONCE ONCE 05/23/18 DC 05/23/18 Acid 4 420 mls/hr IVPB 23:00 22:57 mg/Sodium 05/23/18 23:14 Chloride Calcitonin 100 units ONCE ONCE 05/23/18 DC [place] SC 22:45 (Miacalcin 05/23/18 22:45 Inj) IV Flush 10 ml STK-MED 05/23/18 DC 05/23/18 (NS 10 ml) ONCE .ROUTE 21:05 21:05 05/23/18 21:06 Sodium 100 ml @ ud STK-MED 05/23/18 DC 05/23/18 Chloride ONCE .ROUTE 21:05 21:05 05/23/18 21:06 Iohexol 100 ml @ ud STK-MED 05/23/18 DC 05/23/18 ONCE .ROUTE 21: 21:05 05/23/18 21:06 Ipratropium 0.5 mg Q2H RESP 05/23/18 [place] THERAPY PRN 21:00 (Atrovent NEB 0.02% SHORTNESS OF (Neb)) BREATH 650 mg Q6H PRN 05/23/18 Acetaminophen PO PAIN 21:00 (Tylenol LEVEL 1-3 OR Liquid) FEVER Morphine 2 mg Q4H PRN 05/23/18 Sulfate IV PAIN 21:00 (morphine) LEVEL 7-10 Calcitonin 100 units ONCE ONCE 05/23/18 DC 05/23/18 [place] SC 22:45 22:58 (Miacalcin 05/23/18 22:46 Inj) Lorazepam 0.5 mg ONCE ONCE 05/23/18 DC (Ativan) IV 23:00 05/23/18 23:01 Lorazepam 0.5 mg Q6H PRN 05/23/18 (Ativan) IV 23:00 AGITATION/ANX IETY Albumin 100 ml @ ONCE ONCE 05/23/18 Human 100 mls/hr IV 23:30 05/24/18 00:29 Piperacillin 100 ml @ Q6 IVPB 05/24/18 UNV Sod/ 200 mls/hr 00:00 Tazobactam Sod Vancomycin VANCOMYCIN PER 05/23/18 UNV HCl (Vanco PER PHARMACY PROTOCOL XX 23:30 Iv Per Pharmacy) Enoxaparin 40 mg DAILY SC 05/23/18 UNV Sodium 23:30 (Lovenox) Procedures/MDM EMERGENT LABS AND DIAGNOSTIC STUDIES: Lab Results above were reviewed and interpreted by me. CBC: leukocytosis, concerning for infection. CMP: hypercalcemic. No evidence of other electrolyte abnormality, renal failure, hypoglycemia, liver failure, or biliary obstruction Troponin within normal limits, not indicative of cardiac ischemia Lactate elevated, consistent with tissue hypoperfusion and sepsis 12-lead EKG was interpreted by Sabrina Lund MD: Sinus tachycardia at 128 bpm Normal axis Normal intervals No acute ST or T wave changes suggestive of acute ischemia or STEMI. Radiology Results as interpreted by Radiology below were reviewed by Holly alcocer MD: CXR: Left hemithorax whiteout, with rightward mediastinal shift and right sided vascular congestion CTA Chest: pending Initial Nursing notes reviewed. Previous Medical Records requested via the Electronic Health Record. EMERGENCY DEPARTMENT COURSE / MEDICAL DECISION MAKING: Patient presents with respiratory distress and confusion. Vitals were notable for hypoxia on room air, tachycardia and tachypnea. Sepsis workup was initiated given my concern for possible pneumonia. Chest x-ray showed a left-sided lung white out without ability to rule out underlying pneumonia. She also has a mediastinal shift to the right. I reviewed her past imaging and this was also present on past imaging. A CT done in March showed that she had a left hemithorax full of tumors with no obvious effusion at that time. I feel that the patient's cancer burden is just getting worse. Her oxygenation and shortness of breath improved with supplemental oxygen. She was given broad- spectrum antibiotics and IV fluids. Labs are notable for hypercalcemia, which was treated with IV fluids. Patient's vitals remained relatively stable with no evidence of cardiac tamponade. I discussed the patient's case with the admitting doctor on-call. We decided to do a CTA of her chest to evaluate for possible effusion. Patient's infectious symptoms have not stabilized and the patient is at risk of rapid decompensation. The patient will be admitted for careful hydration, antibiotic therapy, and infectious source control. Severe Sepsis Assessment: Infectious Source: suspected Pneumonia End organ damage indicated by: Lactate > 2.0 mmol/L Acute Resp Failure (sat < 92% w/o oxygen) Severe Sepsis Management: Blood Cultures X 2 before broad spectrum antibiotics initiated within 3 hours of recognition. 30 ml/kg NS bolus Completed Initial Lactate: 4.4 Repeat Lactate pending Critical Care: Time: 45 minutes Treatments/Evaluations: Emergent fluid management, while maintaining close respiratory support. Immediate broad spectrum antibiotic therapy. Simultaneous assessment for possible sources in order to direct therapy. Consideration for invasive and chemical support to prevent respiratory or cardiac collapse. Septic Shock Assessment (1 hour post 30 ml/kg fluid bolus): Hypotension (SBP < 90 or 40 mmHg drop, MAP < 65): No Lactic acid > 4.0 yes Perfusion Reassessment for Septic Shock @ 22:42: Temp 97.8F Pulse 125 RR 18 BP 91/64 O2 100% on nonrebreather Heart Exam: Tachycardic Lung Exam: No Crackles, left hemithorax minimal breath sounds Capillary Refill: normal Peripheral Pulses: Radially present Skin: pale, dry Hypotensive Treatment (not required for isolated lactic acid elevation): Comfort Care: No Central LIne: not indicated Vasopressor started: none Accepting Care Team: Current data and ongoing care discussed. Time: Time of admission Primary Provider: Dr. Carter Consulting: none Outstanding Data: CTA chest Departure Diagnosis: Primary Impression: Acute respiratory failure with hypoxia Additional Impressions: Mass of left lung Septic shock Hypercalcemia Healthcare-associated pneumonia Condition: Serious SHU LUND MD May 23, 2018 22:06
[2018-05-23] MEDS ORDERED: CALCITONIN SALMON 400 UNITS INJ SC ONE ×2 (22:45)
--- NOTE | 2018-05-23 22:58 | HP ---
Date/Time of Note Date/Time of Note DATE: 05/23/18 TIME: 22:54 Assessment/Plan VTE Prophylaxis Pharmacological prophylaxis: LMWH Lines/Catheters IV [facility]atheter Type (from [facility]): Port-a-cath Assessment/Plan Hospital Course This is a 42-year-old female being admitted to the ICU floor foor 1. Acute on chronic respiratory distress: multifactorial secondary to lung mass, pulm congestion, possible PNA. Her chest x-ray does show shifting of the mediastinum to the right which appears to be worse than previous x-ray in March. Non rebreather at the current time. Will obtain CTA of chest to further evaluate. Patient did receive 2 L normal saline in the ED however I will hold further fluids at the current time given her findings of pulmonary congestion along with a lung mass. I will also give her a dose of Lasix 80 mg IV x1 to see if we can help with her pulmonary congestion. PRN nebulizers. Given her very tenuous status and the fact that the family at the current time wishes to keep her a full code I will admit her to the ICU for closer monitoring in the setting of possibly needing to be intubated. 2. Acute encephalopathy: Likely in the setting of hypercalcemia. She did receive 2 L normal saline in the ED however I will withhold further fluids given her respiratory distress and lung exam. Will treat with bisphosphonates calcitonin and Lasix, continue to monitor. 3. Hypercalcemia: Secondary to underlying cancer. She did receive 2 L of normal saline bolus, I will withhold further fluids at the current time given her pulmonary status. I will give her a dose of zoledronic acid 4 mg IV x1 as well as calcitonin 100 mg we will repeat a BMP. And then reassess. She will also be getting 80 mg of Lasix for diuresis which also should hopefully help with the calcium. 4. Possible sepsis: Patient was afebrile however she was tachypneic and tachycardic and had a lactic acid of 4.4. There is concern for possible s uperimposed pneumonia as well. We will treat at the current time with vancomycin and Zosyn given her immune compromised status. Trend lactic acid levels. Await culture results. Monitor blood pressures. May need pressors. 5. Possible PNA. CTA of the chest is pending. Will treat with vancomycin and Zosyn, await culture results. 6. 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 Chest x-ray appears to be slightly worse from March with a mediastinal shift, with complete left-sided opacification.. CT of the chest is pending. 7. 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 family has been going to Dr. Darien Pendleton for outpatient chemotherapy/immunotherapy. The family did go to [facility] for consultation however she was not deemed a candidate for treatment. Will consult Dr. Mathew. 8. Dvt and gi prophylaxis: Lovenox, Protonix Further treatment strategy will be implemented as per the clinical course. Greater than 45 minutes critical care time was spent in the care and management this patient. I did have an extensive discussion with multiple family members at the bedside as well as over the phone and explained to her the patient's grave condition. I feel that they will need some time to come to terms of the patient's diagnosis. If needed they would like to proceed with intubation therefore she will remain a full code. I do feel that this patient would be a good hospice candidate however this likely will need to be brought up again at a later date if the patient's condition does not improve. Result Diagram: 05/23/18 1750 05/23/18 1750 Results 24hrs Laboratory Tests Test 05/23/18 17:50 05/23/18 18:30 White Blood Count 19.5 #H Red Blood Count 4.34 Hemoglobin 11.5 L Hematocrit 37.0 Mean Corpuscular Volume 85.3 Mean Corpuscular Hemoglobin 26.5 L Mean Corpuscular Hemoglobin Concent 31.1 L Red Cell Distribution Width 17.6 H Platelet Count 144 # Mean Platelet Volume 9.5 Immature Granulocytes % 0.900 H Neutrophils % 84.8 H Lymphocytes % 5.6 L Monocytes % 8.4 Eosinophils % 0.1 Basophils % 0.2 Nucleated Red Blood Cells % 0.0 Immature Granulocytes # 0.170 H Neutrophils # 16.5 H Lymphocytes # 1.1 Monocytes # 1.6 H Eosinophils # 0.0 Basophils # 0.0 Nucleated Red Blood Cells # 0.0 Prothrombin Time 16.2 H Prothrombin Time Ratio 1.3 INR International Normalized Ratio 1.29 Activated Partial Thromboplast Time 35.3 H Sodium Level 139 Potassium Level 4.3 Chloride Level 107 Carbon Dioxide Level 24 Anion Gap 8 Blood Urea Nitrogen 18 Creatinine 0.41 L Est Glomerular Filtrat Rate mL/min > 60 Glucose Level 118 Calcium Level 14.5 *H Troponin I < 0.012 Lactic Acid Level 4.4 *H Total Bilirubin 0.4 Direct Bilirubin 0.00 Indirect Bilirubin 0.4 Aspartate Amino Transf (AST/SGOT) 32 Alanine Aminotransferase (ALT/SGPT) 15 Alkaline Phosphatase 231 H Total Protein 5.7 L Albumin 2.7 L HPI/ROS Admit Date/Time Admit Date/Time Hx of Present Illness cc: confusion, sob. History was obtained from the family members at the bedside, as patient is confused. 43-year-old female with a history of synovial sarcoma with metastasis to the lung brought in by family for increasing confusion over the past few days and increasing shortness of breath. She also complains of chest pain that is chronic but also worsening. No fevers or chills. No vomiting or diarrhea. ROS Subjective hx not possible: pt critical (altered) PMH/Family/Social Past Medical History Lung biopsy: Malignant spindle cell neoplasm with morphologic and immunophenotypical features consistent with metastatic monophasic synovial sarcoma Medications Current Medications Ondansetron HCl (Zofran Inj) 4 mg ER BRIDGE PRN IV NAUSEA/VOMITING; Start 05/23/18 at 21:00; Stop 05/24/18 at 20:59 Acetaminophen (Tylenol Tab) 650 mg ER BRIDGE PRN PO .MILD PAIN 1-3 OR TEMP; Start 05/23/18 at 21:00; Stop 05/24/18 at 20:59 Zoledronic Acid 4 mg/Sodium Chloride 105 ml @ 420 mls/hr ONCE ONCE IVPB ; St art 05/23/18 at 23:00; Stop 05/23/18 at 23:14 Ipratropium [place] (Atrovent 0.02% (Neb)) 0.5 mg Q2H RESP THERAPY PRN NEB SHORTNESS OF BREATH; Start 05/23/18 at 21:00 Acetaminophen (Tylenol Liquid) 650 mg Q6H PRN PO PAIN LEVEL 1-3 OR FEVER; Start 05/23/18 at 21:00 Morphine Sulfate (morphine) 2 mg Q4H PRN IV PAIN LEVEL 7-10; Start 05/23/18 at 21:00 Lorazepam (Ativan) 0.5 mg ONCE ONCE IV ; Start 05/23/18 at 23:00; Stop 05/23/18 at 23:01; Status UNV Coded Allergies: No Known Allergy (Unverified , 05/23/18) Past Surgical History left forearm sarcoma removal, cholecystectomy Past Surgical Hx: other Family History Significant Family History: cancer Social History Smoking Status: Former smoker Exam/Review of Systems Vital Signs Vitals Vital Signs Date Temp Pulse Resp B/P (MAP) Pulse Ox O2 O2 Flow FiO2 Time Delivery Rate 05/23/18 125 18 91/64 (73) 100 Room Air 22:42 05/23/18 4 17:22 05/23/18 97.9 16:54 Exam Exam General: Patient is moaning, she appears in respiratory distress, she is confused HEENT: Atraumatic, normocephalic. The pupils are equal, round and reactive. Extraocular motor are intact Neck: Supple with full range of motion. No rigidity or meningismus Chest: Nontender Lungs: Diminished breath sounds over the left lung field, crackles and rales in the right lung field, tachypneic, moderate respiratory distress Heart: Sinus tachycardia Abdomen: Soft , nontender, nondistended , bowel sounds are present. No guarding no rebound tenderness , No masses or organomegaly. No costovertebral temporal angle mass Extremities: Normal to inspection, no edema no cyanosis Neurologic: Altered/confused, moaning Additional Comments PROCEDURE: XR Chest. CLINICAL INDICATION: chest pain TECHNIQUE: Single AP view of the chest was obtained COMPARISON: None FINDINGS: The heart is obscured. The pulmonary vasculature are prominent on the right side. Left-sided vasculature is not visible. The mediastinum is shifted towards the right. There is complete opacification of the left hemithorax. There is no right-sided effusion or consolidation. The aorta is obscured. There is a right-sided chest port terminates in the SVC. There is no acute osseous abnormality. IMPRESSION: Complete opacification of the left hemithorax could represent a large left effusion with shift of the mediastinum towards the right side. This can be further assessed with CT. There findings suggestive for right-sided vascular congestion without right- sided lung opacity. RPTAT: AA .Gauri Romero MD, Date Time Electronically viewed and signed by .Gauri Romero MD, MD on 05/23/2018 17:40 .J/ CC: SHU LUND MD [id number] JERMAINE MEJIA May 23, 2018 22:58
[2018-05-23] MEDS ORDERED: ZOLEDRONIC ACID 4 MG in SOD CHLORIDE 0.9% 100 ML IVPB ONE (23:00)
[2018-05-23] MEDS ORDERED: LORAZEPAM 2 MG INJ IV PRN (23:00)
[2018-05-23] MEDS ORDERED: LORAZEPAM 2 MG INJ IV ONE (23:00)
[2018-05-23] MEDS ORDERED: VANCOMYCIN IV PER PHARMACY XX SCH (23:30)
[2018-05-23] MEDS ORDERED: ALBUMIN HUMAN 25% 100 ML IV ONE (23:30)
[2018-05-24] VITALS (21 sets, daily range): BP systolic 98–118; BP diastolic 63–101; PULSE 118–136; RESP 18–38
[2018-05-24] MEDS: ENOXAPARIN 40 MG/0.4 ML SYG SC SCH ×2 (01:20→09:00)
[2018-05-24] MEDS: PIPER-TAZO 3.375 GM IV (PMX) 100 ML IVPB SCH ×2 (01:20→06:55)
[2018-05-24] MEDS ORDERED: LORAZEPAM 2 MG INJ IV ONE ×2 (03:00→06:00)
[2018-05-24] MEDS ORDERED: VANCOMYCIN 1 GM in 250 ML IVPB SCH (03:00)
[2018-05-24] MEDS ORDERED: LORAZEPAM 2 MG INJ IV PRN ×2 (03:00→15:00)
[2018-05-24] MEDS: ALBUMIN HUMAN 25% 100 ML IV SCH ×2 (03:58→05:40)
[2018-05-24] MEDS ORDERED: CALCITONIN SALMON 400 UNITS INJ SC SCH ×2 (04:00)
[2018-05-24] MEDS ORDERED: morphine 2 MG INJ IV STA (04:13)
[2018-05-24] MEDS ORDERED: SOD CHLORIDE 0.9% 1,000 ML IV SCH (04:30)
[2018-05-24] MEDS ORDERED: morphine 4 MG/ML VIAL IV STA (05:33)
[2018-05-24] MEDS ORDERED: SOD CHLORIDE 0.45% 1,000 ML IV SCH (08:30)
--- NOTE | 2018-05-24 08:57 | CONS ---
DATE OF ADMISSION: 05/23/2018 DATE OF CONSULTATION: TYPE OF CONSULTATION: Nephrology. REASON FOR CONSULTATION: Hypercalcemia, hypernatremia. REQUESTING PHYSICIAN: Dr. Horacio Mejia. HISTORY OF PRESENT ILLNESS: This is a 42-year-old unfortunate female with a past medical history of synovial sarcoma with metastasis to the lung, who presented to [facility] Emergency Room for increased confusion and shortness of breath. The patient has been seen by oncologist in ou tpatie setting and has been receiving chemotherapy in the past. The patient over the last several days was noted to have increased weakness, confusion. As a result, she came to the emergency room. Upon arrival, patient noted to have a white count of 19,000, a calcium level of 13.2 and a lactic aci d level of 4.4. In the emergency room, the patient was given bisphosphonates, calcitonin, IV fluids, diuretic therapy and admitted to the intensive care unit. Upon my evaluation of the patient at this time, she is currently altered, confused, unable to give hi story. History is obtained by reviewing medical records and speaking to the hospital staff. PAST MEDICAL HISTORY: History of metastatic sarcoma. PAST SURGICAL HISTORY: Status post left forearm sarcoma removal, status post cholecystectomy. FAMILY HISTORY: No family history of kidney disease. SOCIAL HISTORY: Former smoker. MEDICATIONS: The patient's medications have been reviewed. REVIEW OF SYSTEMS: Unable to do adequate review of systems. The patient is altered. Pertinent posi tives as stated in HPI by reviewing medical records and speaking to hospital staff noted. PHYSICAL EXAMINATION: VITAL SIGNS: Blood pressure is 108/77, respirations 31, pulse 119, temperature 98.6. GENERAL: The patient is altered. HEENT: Head is normocephalic. Pupils are reactive to light. NECK: Supple. HEART: Tachycardic. LUNGS: The lungs showed diminished breath sounds at the right base, markedly diminished sounds in th e left lung. ABDOMEN: Soft, nontender to palpation. EXTREMITIES: Negative for clubbing, cyanosis, no edema. DERMATOLOGIC: No rashes. MUSCULOSKELETAL: No joint effusions. NEUROLOGIC: Limited exam. LABORATORY DATA: Shows white count of 18.6, hemoglobin 9.1, platelet count is 107. Sodium 147, pota ssium 3.3, BUN 16, creatinine 0.64, calcium level is 12.9. IMAGING STUDIES: CT scans were reviewed. A CT of the chest shows very little residual right chest d ue to a combination of massive left chest tumor, compression of the right lung, adenopathy of the nec k noted, severe splenomegaly and extremely rapidly growing metastasis in liver. ASSESSMENT AND PLAN: This is a 43-year-old female who presents with: 1. Hyponatremia, etiology is likely secondary to insensible loss and decreased free water intake due to acute encephalopathy. Lower suspicion for diabetes insipidus at this time. However, will do a f ull workup. We will check urine sodium, urine osmolarity. We will start the patient on hypotonic fl uid and monitor closely. 2. Hypokalemia, replete potassium chloride. 3. Hypocalcemia. Etiology is due to malignancy. The patient is status post calcitonin, status post bisphosphonate Zometa, status post Lasix and IV fluids. Will continue to monitor serum calcium leve ls. 4. Anemia. Monitor hemoglobin and hematocrit levels. 5. Acute respiratory failure, etiology secondary to metastatic sarcoma, extensive pulmonary burden, possible pneumonia. Continue current medical management. Continue nonrebreather nebulizers. Continu e antibiotic therapy. 6. Acute encephalopathy, etiology is multifactorial secondary toxic metabolic, hypocalcemia. Contin ue medical management and monitor. 7. Systemic inflammatory response syndrome, possible sepsis. The patient has elevated lactic acid l evel. Continue IV fluids, antibiotic therapy. 8. Metastatic synovial sarcoma. The patient has been seen by oncology in the past. Continue to nila dennis. Thank you, Dr. Mejia for this interesting consult. It will be a pleasure to follow patient with yo u throughout the hospital course. Please note that I spent over 30 minutes of critical care time with this patient. Please note, the patient has a very poor prognosis. Consider palliative care. Dictated By: RAMSEY SAINZ DO NR/NTS Conf#: [id number] DID#: [id number] CC: HORACIO MEJIA MD; LEXIE ALLEN MD;*EndCC*
--- NOTE | 2018-05-24 11:28 | PN ---
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 - family has been going to Dr. Darien Pendleton for outpatient chemotherapy/immunotherapy. - The family did go to [facility] for consultation however she was not deemed a candidate for treatment. - The patient is not in any condition for further life-sustaining therapy and in my opinion comfort care is the only ethical course of action. Per discussion with family they are in agreement. Will transfer to . Will see how she does with adequate pain control; likely will be candidate for inpatient hospice. - On prior admission in March she was getting about 80-90 oral morphine equivalents per day. - High dose PO, IV dilaudid prn pain. # Acute on chronic respiratory distress: - multifactorial secondary to lung mass, pulm congestion. - Her chest CT does show shifting of the mediastinum to the right which appears to be worse than previous x-ray in March. - Appears euvolemic. Will hold IV fluids and diuresis. - Morphine prn respiratory distress. # Acute encephalopathy: - Likely in the setting of hypercalcemia. - The patient also does not speak any Mauritian. No language is listed in the chart unfortunately. I believe she speaks Urdu. # Hypercalcemia: - Secondary to underlying cancer. - On admission got IV fluids; zoledronic acid, calcitonin. - In setting of comfort care will not monitor further calcium levels. # Possible sepsis: - Patient afebrile. Likely tachypneic; tachycardic from cancer burden. - Got antibiotics in the ED but I will stop these now. Dvt and gi prophylaxis: Lovenox, Protonix Greater than 45 minutes critical care time was spent in the care and management this patient. Code status: Comfort measures only Result Diagram: 05/24/18 0603 05/24/18 0738 Subjective 24 Hr Interval Summary Free Text/Dictation Patient uncomfortable and tachypneic appearing. An urgent discussion about code status was needed. I determined that even if an story teller was available, the patient was not alert enough to make medical decisions. Over the phone I spoke to her son June, who deferred to the patient's uncle Gwen leos ([phone]). James agreed that the patient should not be resuscitated in case she goes into cardiac or respiratory arrest. Additionally he agreed to morphine gtt for comfort, and no life-prolonging therapy. I explained comfort care status and he agreed with this intervention. At bedside arrived several non-Mauritian speaking family members; along with another Mauritian-speaking son who would not tell me his name. I explained the code status change to comfort measures only; and he was in agreement. Exam/Review of Systems Exam Vitals Vital Signs Date Temp Pulse Resp B/P (MAP) Pulse Ox O2 O2 Flow FiO2 Time Delivery Rate 05/24/18 121 38 97 10:15 05/24/18 109/70 Nasal 5.0 10:00 (83) Cannula 05/24/18 98.3 08:00 Intake and Output 05/23/18 05/23/18 05/24/18 1515:00 23:00 07:00 IntakeIntake Total 110 ml OutputOutput Total 100 ml BalanceBalance 10 ml Exam General: Patient is moaning, she appears in respiratory distress, she is conf used HEENT: Atraumatic, normocephalic. Neck: Supple with full range of motion. No rigidity or meningismus Chest: Nontender Lungs: Diminished breath sounds over the left lung field, crackles and rales in the right lung field, tachypneic, moderate respiratory distress Heart: Sinus tachycardia Abdomen: Soft , nontender, nondistended , bowel sounds are present. Extremities: Normal to inspection, no edema no cyanosis Neurologic: Altered/confused, moaning Results Results 24hrs Laboratory Tests Test 05/23/18 17:50 05/23/18 18:30 05/23/18 22:41 05/23/18 23:29 White Blood Count 19.5 #H Red Blood Count 4.34 Hemoglobin 11.5 L Hematocrit 37.0 Mean Corpuscular 85.3 Volume Mean Corpuscular 26.5 L Hemoglobin Mean Corpuscular 31.1 L Hemoglobin Concen t Red Cell 17.6 H Distribution Width Platelet Count 144 # Mean Platelet 9.5 Volume Immature 0.900 H Granulocytes % Neutrophils % 84.8 H Lymphocytes % 5.6 L Monocytes % 8.4 Eosinophils % 0.1 Basophils % 0.2 Nucleated Red 0.0 Blood Cells % Immature 0.170 H Granulocytes # Neutrophils # 16.5 H Lymphocytes # 1.1 Monocytes # 1.6 H Eosinophils # 0.0 Basophils # 0.0 Nucleated Red 0.0 Blood Cells # Prothrombin Time 16.2 H Prothrombin Time 1.3 Ratio INR International 1.29 Normalized Ratio Activated 35.3 H Partial Thrombopl ast Time Sodium Level 139 Potassium Level 4.3 Chloride Level 107 Carbon Dioxide 24 Level Anion Gap 8 Blood Urea 18 Nitrogen Creatinine 0.41 L Est Glomerular > 60 Filtrat Rate mL/min Glucose Level 118 Calcium Level 14.5 *H Troponin I < 0.012 Lactic Acid Level 4.4 *H 3.6 *H Total Bilirubin 0.4 Direct Bilirubin 0.00 Indirect 0.4 Bilirubin Aspartate Amino 32 Transf (AST/SGOT) Alanine 15 Aminotransferase (ALT/SGPT) Alkaline 231 H Phosphatase Total Protein 5.7 L Albumin 2.7 L Blood Gas Blood arterial Specimen Source Arterial Blood 05/23/2018 11:40: Date Drawn 06 PM Arterial Blood pH 7.358 (Temp corrected) Arterial Blood 38.0 pCO2 (Temp correct) Arterial Blood 83.9 pO2 (Temp corrected) Arterial Blood 20.9 L HCO3 Arterial Blood -4.1 L Base Excess Arterial Blood 95.6 Oxygen Saturation [place] Test ACCEPTAB Arterial Blood Right Radial Gas Puncture Site Arterial 1.1 Blood Carboxyhemo globin Arterial Blood 0.3 Methemoglobin Blood Gas A-a O2 20.3 Differential Oxyhemoglobin 94.3 Percent Blood Gas 37.0 Temperature Blood Gas ROOM AIR Modality FiO2 21.0 Blood Gas [place] Notified Whom Blood Gas 05/23/2018 11:54: Notified Time 44 PM Test 05/24/18 01:08 05/24/18 06:03 05/24/18 07:38 Sodium Level 144 145 H 147 H Potassium Level 3.8 3.4 L 3.3 L Chloride Level 106 111 H 108 Carbon Dioxide 24 23 26 Level Anion Gap 14 H 11 13 Blood Urea 16 15 16 Nitrogen Creatinine 0.43 L 0.41 L 0.41 L Est Glomerular > 60 > 60 > 60 Filtrat Rate mL/min Glucose Level 120 116 106 Lactic Acid Level 2.8 *H Calcium Level 13.2 *H 12.9 H White Blood Count 18.6 H Red Blood Count 3.43 #L Hemoglobin 9.1 #L Hematocrit 30.1 L Mean Corpuscular 87.8 Volume Mean Corpuscular 26.5 L Hemoglobin Mean Corpuscular 30.2 L Hemoglobin Concen t Red Cell 17.5 H Distribution Width Platelet Count 107 #L Mean Platelet 10.2 Volume Immature 0.600 H Granulocytes % Neutrophils % 86.3 H Lymphocytes % 4.9 L Monocytes % 8.1 Eosinophils % 0.0 Basophils % 0.1 Nucleated Red 0.0 Blood Cells % Immature 0.110 H Granulocytes # Neutrophils # 16.1 H Lymphocytes # 0.9 Monocytes # 1.5 H Eosinophils # 0.0 Basophils # 0.0 Nucleated Red 0.0 Blood Cells # Total Bilirubin 0.5 Direct Bilirubin 0.00 Indirect 0.5 Bilirubin Aspartate Amino 25 Transf (AST/SGOT) Alanine 16 Aminotransferase (ALT/SGPT) Alkaline 188 H Phosphatase Total Protein 6.3 Albumin 3.6 Globulin 2.70 Albumin/Globulin 1.33 Ratio Medications Medication Current Medications Ondansetron HCl (Zofran Inj) 4 mg ER BRIDGE PRN IV NAUSEA/VOMITING; Start 05/23/18 at 21:00; Stop 05/24/18 at 20:59 Acetaminophen (Tylenol Tab) 650 mg ER BRIDGE PRN PO .MILD PAIN 1-3 OR TEMP; Start 05/23/18 at 21:00; Stop 05/24/18 at 20:59 Ipratropium [employer] (Atrovent 0.02% (Neb)) 0.5 mg Q2H RESP THERAPY PRN NEB SHORTNESS OF BREATH; Start 05/23/18 at 21:00 Acetaminophen (Tylenol Liquid) 650 mg Q6H PRN PO PAIN LEVEL 1-3 OR FEVER; Start 05/23/18 at 21:00 Morphine Sulfate (morphine) 2 mg Q4H PRN IV PAIN LEVEL 7-10 Last administered on 05/24/18at 09:39; Admin Dose 2 MG; Start 05/23/18 at 21:00 Piperacillin Sod/ Tazobactam Sod 100 ml @ 200 mls/hr Q6 IVPB Last administered on 05/24/18at 06:55; Admin Dose 200 MLS/HR; Start 05/24/18 at 00:00 Vancomycin HCl (Vanco Iv Per Pharmacy) VANCOMYCIN PER PHARMACY PER PROTOCOL XX ; Start 05/23/18 at 23:30 Enoxaparin Sodium (Lovenox) 40 mg DAILY SC Last administered on 05/24/18at 01:20; Admin Dose 40 MG; Start 05/23/18 at 23:30 Vancomycin HCl 250 ml @ 125 mls/hr Q8H IVPB Last administered on 05/24/18at 04:07; Admin Dose 125 MLS/HR; Start 05/24/18 at 03:00 Lorazepam (Ativan) 0.5 mg Q4H PRN IV AGITATION/ANXIETY Last administered on 05/24/18 10:23; Admin Dose 0.5 MG; Start 05/24/18 at 03:00 Calcitonin [place] (Miacalcin Inj) 340 units Q12H SC Last administered on 04:09; Admin Dose 340 UNITS; Start 05/24/18 at 04:00; Stop 05/25/18 at 16:01 Sodium Chloride 1,000 ml @ 100 mls/hr Q10H IV Last administered on 05/24/18at 09:45; Admin Dose 100 MLS/HR; Start 05/24/18 at 08:30 EDUARDO YEBOAH MD May 24, 2018 11:25
[2018-05-24] MEDS ORDERED: HYDROmorphONE 4 MG TAB PO PRN ×2 (11:30)
[2018-05-24] MEDS ORDERED: HYDROmorphONE 1 MG/ML SYG IV PRN (13:30)
[2018-05-24] MEDS ORDERED: ATROPINE 1% 5 ML OPH SL PRN (15:30)
--- NOTE | 2018-05-24 15:32 | CONS ---
Assessment/Plan Assessment/Plan Assessment/Plan (Daily) End-stage sarcoma 3-day history of increasing shortness of breath secondary to tumor mass, pulmona ry congestion possible pneumonia Treated aggressively with IV antibiotics diuretics Pain and shortness of breath out of control, pain and shortness of breath accelerated throughout the day in spite of aggressive comfort measures Fluid and electrolyte abnormalities Encephalopathy, delirium secondary to the above Will adjust comfort measures. Had an extensive conversation with family members that we will keep her comfortable. Explained to them that we will stay in front of her symptoms with continuous titratable drip of morphine. She was given appropriate and aggressive treatment for end-of-life care over the last 24 hours. Family asked that she just be kept comfortable at this time and does not have any more episodes of distress. Consultation Date/Type/Reason Admit Date/Time Date/Time of Note DATE: 05/24/18 TIME: 15:23 Hx of Present Illness Entire history taken from patient's medical records and speaking with her at the bedside. 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 There are multiple family members approximately 15 at patient's bedside and o utside her room they are all very supportive and are in agreement that she awakens occasionally moans and groans. She has an extensive current history but came in with severe respiratory distress probably secondary to lung mass pneumonia pulmonary congestion. She had aggressive workup appropriately for fluid electrolyte abnormalities treated aggressively. Nephrology consultation was done also. Patient was treated aggressively for sepsis syndrome also. In reading over prior CT scans and comparing them apparently patient's tumor mass has grasped extremely fast. Patient had been receiving chemotherapy and immunotherapy as an outpatient and was also seen at [facility] and was turned down for any other aggressive interventions. Dr. Yeboah had a discussion with family members when patient was initially admitted and at that time family wanted patient intubated but apparently that was changed to family members. It is clear when I discussed her care they do not want her to continue on and suffer any longer, CODE STATUS is comfort measures. Within 24 hours patient deteriorated another discussion was done with family members through an granite polisher machine family members agreed not to pursue any further aggressive care she was started off of morphine all family members were in agreement with just comfort measures after multiple discussions documented in patient's chart. Past Medical History Home Meds Reported Medications Morphine Sulfate* (Ms Contin*) 15 Mg Tablet.sa, 30 MG PO Q12, TAB 05/23/18 Oxycodone Hcl* (IR) (Roxicodone*) 5 Mg Tab, 10 MG PO Q4H PRN for PAIN, TAB 05/23/18 Hydromorphone Hcl* (Dilaudid*) 4 Mg Tablet, 4 MG PO Q4H PRN for PAIN, TAB 05/23/18 Discontinued Scripts Sennosides* (Senna Lax*) 8.6 Mg Tablet, 2 TAB PO BID, #120 TAB Prov:EDUARDO YEBOAH MD 03/29/18 Morphine Sulfate (Morphine Sulfate ER) 30 Mg Tablet.er, 30 MG PO BID, #60 TAB Prov:EDUARDO YEBOAH MD 03/29/18 Hydromorphone Hcl* (Dilaudid*) 2 Mg Tablet, 4 MG PO Q3H PRN for SEVERE PAIN LEVEL 7-10, #60 TAB Prov:EDUARDO YEBOAH MD 03/29/18 Medications Current Medications Ondansetron HCl (Zofran Inj) 4 mg ER BRIDGE PRN IV NAUSEA/VOMITING; Start 05/23/18 at 21:00; Stop 05/24/18 at 20:59 Acetaminophen (Tylenol Tab) 650 mg ER BRIDGE PRN PO .MILD PAIN 1-3 OR TEMP; Start 05/23/18 at 21:00; Stop 05/24/18 at 20:59 Ipratropium [place] (Atrovent 0.02% (Neb)) 0.5 mg Q2H RESP THERAPY PRN NEB SHORTNESS OF BREATH; Start 05/23/18 at 21:00 Acetaminophen (Tylenol Liquid) 650 mg Q6H PRN PO PAIN LEVEL 1-3 OR FEVER; Start 05/23/18 at 21:00 Hydromorphone HCl (Dilaudid) 8 mg Q4H PRN PO MODERATE PAIN LEVEL 4-6; Start 05/24/18 at 11:30 Lorazepam (Ativan) 1 mg Q2H PRN IV AGITATION/ANXIETY; Start 05/24/18 at 15:00 Hydromorphone HCl (Dilaudid) 2 mg Q4H PRN IV MODERATE PAIN LEVEL 4-6 Last administered on 05/24/18at 14:10; Admin Dose 2 MG; Start 05/24/18 at 13:30 Allergies: Coded Allergies: No Known Allergy (Unverified , 05/23/18) Past Surgical History Past Surgical Hx: other Social History Smoking Status: Never smoker Exam/Review of Systems Exam Vitals Vital Signs Date Temp Pulse Resp B/P (MAP) Pulse Ox O2 O2 Flow FiO2 Time Delivery Rate 05/24/18 120 12:22 05/24/18 38 97 10:15 05/24/18 109/70 Nasal 5.0 10:00 (83) Cannula 05/24/18 98.3 08:00 Intake and Output 05/23/18 05/23/18 05/24/18 1515:00 23:00 07:00 IntakeIntake Total 110 ml OutputOutput Total 100 ml BalanceBalance 10 ml Constitutional: distress Head: normocephalic, atraumatic Neck: supple Respiratory: crackles/rales, diminished breath sounds, intercostal retraction, labored breathing, other (Tachypneic) Cardiovascular: regular rate and rhythm, nl pulses Neurological: other (Occasionally moans and groans, no response to any verbal or tactile stimulation nonpurposeful movement) Results Result Diagram: 05/24/18 0603 05/24/18 0738 Results 24hrs Laboratory Tests Test 05/23/18 17:50 05/23/18 18:30 05/23/18 22:41 05/23/18 23:29 White Blood Count 19.5 #H Red Blood Count 4.34 Hemoglobin 11.5 L Hematocrit 37.0 Mean Corpuscular 85.3 Volume Mean Corpuscular 26.5 L Hemoglobin Mean Corpuscular 31.1 L Hemoglobin Concen t Red Cell 17.6 H Distribution Width Platelet Count 144 # Mean Platelet 9.5 Volume Immature 0.900 H Granulocytes % Neutrophils % 84.8 H Lymphocytes % 5.6 L Monocytes % 8.4 Eosinophils % 0.1 Basophils % 0.2 Nucleated Red 0.0 Blood Cells % Immature 0.170 H Granulocytes # Neutrophils # 16.5 H Lymphocytes # 1.1 Monocytes # 1.6 H Eosinophils # 0.0 Basophils # 0.0 Nucleated Red 0.0 Blood Cells # Prothrombin Time 16.2 H Prothrombin Time 1.3 Ratio INR International 1.29 Normalized Ratio Activated 35.3 H Partial Thrombopl ast Time Sodium Level 139 Potassium Level 4.3 Chloride Level 107 Carbon Dioxide 24 Level Anion Gap 8 Blood Urea 18 Nitrogen Creatinine 0.41 L Est Glomerular > 60 Filtrat Rate mL/min Glucose Level 118 Calcium Level 14.5 *H Troponin I < 0.012 Lactic Acid Level 4.4 *H 3.6 *H Total Bilirubin 0.4 Direct Bilirubin 0.00 Indirect 0.4 Bilirubin Aspartate Amino 32 Transf (AST/SGOT) Alanine 15 Aminotransferase (ALT/SGPT) Alkaline 231 H Phosphatase Total Protein 5.7 L Albumin 2.7 L Blood Gas Blood arterial Specimen Source Arterial Blood 05/23/2018 11:40: Date Drawn 06 PM Arterial Blood pH 7.358 (Temp corrected) Arterial Blood 38.0 pCO2 (Temp correct) Arterial Blood 83.9 pO2 (Temp corrected) Arterial Blood 20.9 L HCO3 Arterial Blood -4.1 L Base Excess Arterial Blood 95.6 Oxygen Saturation [place] Test ACCEPTAB Arterial Blood Right Radial Gas Puncture Site Arterial 1.1 Blood Carboxyhemo globin Arterial Blood 0.3 Methemoglobin Blood Gas A-a O2 20.3 Differential Oxyhemoglobin 94.3 Percent Blood Gas 37.0 Temperature Blood Gas ROOM AIR Modality FiO2 21.0 Blood Gas TN Notified Whom Blood Gas 05/23/2018 11:54: Notified Time 44 PM Test 05/24/18 01:08 05/24/18 06:03 05/24/18 07:38 Sodium Level 144 145 H 147 H Potassium Level 3.8 3.4 L 3.3 L Chloride Level 106 111 H 108 Carbon Dioxide 24 23 26 Level Anion Gap 14 H 11 13 Blood Urea 16 15 16 Nitrogen Creatinine 0.43 L 0.41 L 0.41 L Est Glomerular > 60 > 60 > 60 Filtrat Rate mL/min Glucose Level 120 116 106 Lactic Acid Level 2.8 *H Calcium Level 13.2 *H 12.9 H White Blood Count 18.6 H Red Blood Count 3.43 #L Hemoglobin 9.1 #L Hematocrit 30.1 L Mean Corpuscular 87.8 Volume Mean Corpuscular 26.5 L Hemoglobin Mean Corpuscular 30.2 L Hemoglobin Concen t Red Cell 17.5 H Distribution Width Platelet Count 107 #L Mean Platelet 10.2 Volume Immature 0.600 H Granulocytes % Neutrophils % 86.3 H Lymphocytes % 4.9 L Monocytes % 8.1 Eosinophils % 0.0 Basophils % 0.1 Nucleated Red 0.0 Blood Cells % Immature 0.110 H Granulocytes # Neutrophils # 16.1 H Lymphocytes # 0.9 Monocytes # 1.5 H Eosinophils # 0.0 Basophils # 0.0 Nucleated Red 0.0 Blood Cells # Total Bilirubin 0.5 Direct Bilirubin 0.00 Indirect 0.5 Bilirubin Aspartate Amino 25 Transf (AST/SGOT) Alanine 16 Aminotransferase (ALT/SGPT) Alkaline 188 H Phosphatase Total Protein 6.3 Albumin 3.6 Globulin 2.70 Albumin/Globulin 1.33 Ratio Medications Medication Current Medications Ondansetron HCl (Zofran Inj) 4 mg ER BRIDGE PRN IV NAUSEA/VOMITING; Start 05/23/18 at 21:00; Stop 05/24/18 at 20:59 Acetaminophen (Tylenol Tab) 650 mg ER BRIDGE PRN PO .MILD PAIN 1-3 OR TEMP; Start 05/23/18 at 21:00; Stop 05/24/18 at 20:59 Ipratropium [place] (Atrovent 0.02% (Neb)) 0.5 mg Q2H RESP THERAPY PRN NEB SHORTNESS OF BREATH; Start 05/23/18 at 21:00 Acetaminophen (Tylenol Liquid) 650 mg Q6H PRN PO PAIN LEVEL 1-3 OR FEVER; Start 05/23/18 at 21:00 Hydromorphone HCl (Dilaudid) 8 mg Q4H PRN PO MODERATE PAIN LEVEL 4-6; Start 05/24/18 at 11:30 Lorazepam (Ativan) 1 mg Q2H PRN IV AGITATION/ANXIETY; Start 05/24/18 at 15:00 Hydromorphone HCl (Dilaudid) 2 mg Q4H PRN IV MODERATE PAIN LEVEL 4-6 Last administered on 05/24/18at 14:10; Admin Dose 2 MG; Start 05/24/18 at 13:30 LEXIE ALLEN May 24, 2018 15:32
[2018-05-24] MEDS ORDERED: morphine (DRIP) 100 MG/100 ML 100 ML IV SCH (16:30)
--- NOTE | 2018-05-25 05:56 | EN ---
Date/Time of Note Date/Time of Note DATE: 05/25/18 TIME: 05:55 Event Note Medicine Medicine Event Note Pronouncement note Patient seen and examined at the bedside. Patient nonresponsive to verbal stimuli. Patient nonresponsive to vigorous sternal rub. Heart sounds not appreciated on auscultation. Pupils fixed and nonreactive to light bilaterally. Patient pronounced at approximately 5:52 AM. Family present at the bedside. Primary team aware. JERMAINE MEJIA May 25, 2018 05:56
--- NOTE | 2018-05-25 06:06 | DES ---
Date/Time of Note Date/Time of Note DATE: 05/25/18 TIME: 05:56 Discharge/ Summary Admission/Discharge Info Admit Date/Time May 23, 2018 at 20:40 Date/Time 05/25/2018 at approximately 5:52 AM Final Diagnosis 1. Acute on chronic respiratory failure secondary to profound tumor burden from metastatic synovial sarcoma to lung 2. Possible sepsis secondary to pneumonia 3. Synovial sarcoma with metastasis to the lung and liver 4. Hypercalcemia 5. Lactic acidosis Preliminary Cause of 1. Acute on chronic respiratory failure secondary to profound tumor burden from metastatic synovial sarcoma to lung 2. Possible sepsis secondary to pneumonia 3. Synovial sarcoma with metastasis to the lung and liver 4. Hypercalcemia 5. Lactic acidosis Admit History cc: confusion, sob. History was obtained from the family members at the bedside, as patient is confused. 43-year-old female with a history of synovial sarcoma with metastasis to the lung brought in by family for increasing confusion over the past few days and increasing shortness of breath. She also complains of chest pain that is chronic but also worsening. No fevers or chills. No vomiting or diarrhea. Hospital Course This is a 42-year-old female being admitted to the ICU floor foor 1. Acute on chronic respiratory distress: multifactorial secondary to lung mass, pulm congestion, possible PNA. Her chest x-ray does show shifting of the mediastinum to the right which appears to be worse than previous x-ray in March. Non rebreather at the current time. Will obtain CTA of chest to further evaluate. Patient did receive 2 L normal saline in the ED however I will hold further fluids at the current time given her findings of pulmonary congestion along with a lung mass. I will also give her a dose of Lasix 80 mg IV x1 to see if we can help with her pulmonary congestion. PRN nebulizers. Given her very tenuous status and the fact that the family at the current time wishes to keep her a full code I will admit her to the ICU for closer monitoring in the setting of possibly needing to be intubated. 2. Acute encephalopathy: Likely in the setting of hypercalcemia. She did receive 2 L normal saline in the ED however I will withhold further fluids given her respiratory distress and lung exam. Will treat with bisphosphonates calcitonin and Lasix, continue to monitor. 3. Hypercalcemia: Secondary to underlying cancer. She did receive 2 L of normal saline bolus, I will withhold further fluids at the current time given her pulmonary status. I will give her a dose of zoledronic acid 4 mg IV x1 as well as calcitonin 100 mg we will repeat a BMP. And then reassess. She will also be getting 80 mg of Lasix for diuresis which also should hopefully help with the calcium. 4. Possible sepsis: Patient was afebrile however she was tachypneic and tachycardic and had a lactic acid of 4.4. There is concern for possible superimposed pneumonia as well. We will treat at the current time with vancomycin and Zosyn given her immune compromised status. Trend lactic acid levels. Await culture results. Monitor blood pressures. May need pressors. 5. Possible PNA. CTA of the chest is pending. Will treat with vancomycin and Zosyn, await culture results. 6. 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 Chest x-ray appears to be slightly worse from March with a mediastinal shift, with complete left-sided opacification.. CT of the chest is pending. 7. 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 family has been going to Dr. Darien Pendleton for outpatient chemotherapy/immunotherapy. The family did go to [facility] for consultation however she was not deemed a candidate for treatment. Will consult Dr. Mathew. 8. Dvt and gi prophylaxis: Lovenox, Protonix Patient was admitted to the hospital. She was maintained on treatment for her hypercalcemia. She was also given supplemental oxygen therapy for her respiratory distress. Patient was also noted to be agitated and in pain and was given Ativan and morphine. CT chest was ordered which showed worsening of her underlying synovial sarcoma. She had mediastinal shift secondary to increased tumor burden in her left lung. She also had new metastasis to the right lung. She also had worsening tumor burden in her liver as well as intraperitoneal fluid. These findings were discussed with the family and given the fact that the patient was not a chemotherapy candidate and no further treatment options were unfortunately available to her and given her level of distress and pain the decision was made with the family that the best course of action would be to proceed with comfort measures only. Patient was switched over to comfort measures only and was put on a morphine drip. Along with as needed Ativan and atropine drops. Patient was kept comfortable through her hospital course. Patient was pronounced at approximately 5:52 AM. Family was present at the bedside. Pending Labs/Cultures Laboratory Tests Test 05/24/18 06:03 05/24/18 07:38 White Blood Count 18.6 10^3/ul (4.8-10.8) Red Blood Count 3.43 10^6/ul (4.20-5.40) Hemoglobin 9.1 g/dl (12.0-16.0) Hematocrit 30.1 % (37.0-47.0) Mean Corpuscular Volume 87.8 fl (82.0-101.0) Mean Corpuscular Hemoglobin 26.5 pg (29.0-33.0) Mean Corpuscular 30.2 g/dl (32.0-37.0) Hemoglobin Concent Red Cell Distribution Width 17.5 % (11.5-14.5) Platelet Count 107 10^3/UL (140-415) Mean Platelet Volume 10.2 fl (7.4-10.4) Immature Granulocytes % 0.600 % (0.001-0.429) Neutrophils % 86.3 % (39.0-77.0) Lymphocytes % 4.9 % (15.0-51.0) Monocytes % 8.1 % (0.0-11.0) Eosinophils % 0.0 % (0.0-7.0) Basophils % 0.1 % (0.0-2.0) Nucleated Red Blood Cells % 0.0 /100WBC (0.0-0.0) Immature Granulocytes # 0.110 10^3/ul (0.0-0.031) Neutrophils # 16.1 10^3/ul (1.6-7.5) Lymphocytes # 0.9 10^3/ul (0.8-2.9) Monocytes # 1.5 10^3/ul (0.3-0.9) Eosinophils # 0.0 10^3/ul (0.0-0.5) Basophils # 0.0 10^3/ul (0.0-0.1) Nucleated Red Blood Cells # 0.0 10^3/ul (0.0-0.0) Sodium Level 145 mmol/L (135-144) 147 mmol/L (135-144) Potassium Level 3.4 mmol/L (3.5-5.1) 3.3 mmol/L (3.5-5.1) Chloride Level 111 mmol/L (97-110) 108 mmol/L (97-110) Carbon Dioxide Level 23 mmol/L (21-31) 26 mmol/L (21-31) Anion Gap 11 (5-13) 13 (5-13) Blood Urea Nitrogen 15 mg/dl (7-20) 16 mg/dl (7-20) Creatinine 0.41 mg/dl (0.44-1.00) 0.41 mg/dl (0.44-1.00) Est Glomerular Filtrat > 60 mL/min (>60) > 60 mL/min (>60) Rate mL/min Glucose Level 116 mg/dl (70-220) 106 mg/dl (70-220) Calcium Level 13.2 mg/dl (8.4-10.2) 12.9 mg/dl (8.4-10.2) Total Bilirubin 0.5 mg/dl (0.2-1.3) Direct Bilirubin 0.00 mg/dl (0.00-0.20) Indirect Bilirubin 0.5 mg/dl (0-1.1) Aspartate Amino 25 IU/L (15-46) Transf (AST/SGOT) Alanine 16 IU/L (13-69) Aminotransferase (ALT/SGPT) Alkaline Phosphatase 188 IU/L (42-121) Total Protein 6.3 g/dl (6.1-8.1) Albumin 3.6 g/dl (3.3-4.9) Globulin 2.70 g/dl (1.3-3.2) Albumin/Globulin Ratio 1.33 JERMAINE MEJIA May 25, 2018 06:06
== END 2018-05-25 05:52 | disposition expired | DRG 871 ==
LOC: E/R 16:48 → ICU 20:40 → EDBEDREQSVC 23:06 → EDBEDREQ 23:06 → MS1 05-24 13:57
PROVIDERS: ADMIT Family Medicine; ATTEND Family Medicine
PROC: 4A033R1 Measurement of Arterial Saturation, Peripheral, Percutaneous Approach (ICD-10-PCS; principal; 2018-05-23)
DX: A41.9 Sepsis, unspecified organism (principal); J18.9 Pneumonia, unspecified organism; G92 Toxic encephalopathy; J96.20 Acute and chronic respiratory failure, unspecified whether with hypoxia or hypercapnia; C78.7 Secondary malignant neoplasm of liver and intrahepatic bile duct; E87.0 Hyperosmolality and hypernatremia; E87.2 Acidosis; C78.02 Secondary malignant neoplasm of left lung; E87.6 Hypokalemia; E83.52 Hypercalcemia; Z85.831 Personal history of malignant neoplasm of soft tissue; Z87.891 Personal history of nicotine dependence
CPT/HCPCS: 36415; 36600; 71045; 71275; 74176; 80048; 80053; 80076; 82803; 83605; 84484; 85025; 85610; 85730; 87040; 87081; 93005; 96374; 96375; 96376; J3487; J0692; J1170; J1650; J1940; J2060; J2270; J2543; J3370; J7030; P9047; Q9967